=== PATIENT | male | born 1945 | race Caucasian/White ===

== ENCOUNTER → 2018-07-17 11:10 | Outpatient (CLI) | payer MEDICARE, SELFPAY ==
[2018-07-17 12:39] LABS: Alanine Aminotransferase 48 IU/L (21-72); Albumin 4.8 g/dL (3.5-5.0); Albumin Globulin Ratio 1.5 (1.0-2.8); Alkaline Phosphatase 44 U/L (38-126); Aspartate Aminotransferase 37 IU/L (17-59); BUN Creatinine Ratio 18.3 (6-22); Bilirubin Total 1.1 mg/dL (0.2-1.3); Blood Urea Nitrogen 22 mg/dL (9-20); Calcium 10.7 mg/dL (8.4-10.2); Carbon Dioxide 24 mmol/L (22-32); Chloride 107 mmol/L (98-107); Cholesterol 196 mg/dL (140-199); Estimated Glomerular Filt Rate 59.2 mL/min (>60); Globulin 3.1 g/dL (1.7-4.1); Glucose 119 mg/dL (80-110); HDL Cholesterol 49 mg/dL (40-60); HEMOLYSIS < 15 (0-50); LDL Cholesterol Calculated 118 mg/dL (<100); Sodium 143 mmol/L (137-145); Total Protein 7.9 g/dL (6.3-8.2); Triglycerides 146 mg/dL (35-150)
[2018-07-17 13:08] LABS: TSH w/ Reflex to FT4 2.43 uIU/mL (0.47-4.68)
== END ==
PROVIDERS: Visit Provider Student in an Organized Health Care Education/Training Program
DX: I10 Essential (primary) hypertension (principal); E78.5 Hyperlipidemia, unspecified; Z13.228 Encounter for screening for other metabolic disorders
CPT/HCPCS: 36415; 80053; 80061; 84443

== ENCOUNTER → 2018-08-08 09:52 | Outpatient (CLI) | payer MEDICARE, SELFPAY ==
[2018-08-09 15:35] LABS: Parathyroid Hormone Int 44 pg/mL (14-64)
[2018-08-11 21:00] LABS: Alkaline Phosphatase, Bone Spe 5.8 mcg/L
== END ==
PROVIDERS: Visit Provider Student in an Organized Health Care Education/Training Program
DX: E83.52 Hypercalcemia (principal)
CPT/HCPCS: 36415; 83970; 84075

== ENCOUNTER → 2019-06-29 12:43 | Outpatient (CLI) | payer MEDICARE, SELFPAY ==
--- NOTE | 2019-06-29 | DI.US.S_ITS ---
PROCEDURE: US ABDOMEN LIMITED INDICATIONS: RIGHT GROIN PAIN TECHNIQUE: Real-time focused scanning was performed of the abdomen, with image documentation. COMPARISON: None. FINDINGS: Scanning was performed over the area of current clinical concern, superior right groin region, identifying no abnormal mass, fluid collection or sonographic findings suggestive of herniation. IMPRESSION: No abnormality found. Depending on the clinical status followup by contrast enhanced CT or MRI may be warranted. Dictated by: Trevor Victor M.D. on 06/29/2019 at 14:44 Approved by: Trevor Victor M.D. on 06/29/2019 at 14:44
== END ==
PROVIDERS: PCP Student in an Organized Health Care Education/Training Program; Visit Provider Student in an Organized Health Care Education/Training Program
DX: R10.31 Right lower quadrant pain (principal)
CPT/HCPCS: 76705

== ENCOUNTER 2019-12-13 09:45 | Observation (INO) | payer MEDICARE, SELFPAY ==
[2019-12-13] VITALS (15 sets, daily range): BP systolic 106–143; BP diastolic 61–80; PULSE 65–124; RESP 14–30; TEMP 36.7–37.2; O2SAT 90–100; BMI 27.3
[2019-12-13] MEDS: EPINEPHrine 1 MG/ML 0.3 MG IM (09:55)
[2019-12-13] MEDS: diphenhydrAMINE 50 MG/ML VIAL 25 MG IV (09:55)
[2019-12-13] MEDS: methylPREDNISolone 125 MG/2 ML VIAL IV (09:55)
[2019-12-13] MEDS: FAMOTIDINE 20 MG/50 ML PIGGYBACK 200 MG IV (10:00)
--- NOTE | 2019-12-13 10:09 | ED.ALLEREA ---
HPI - Allergic Reaction General Chief complaint: Allergic Reaction Stated complaint: Tongue is swollen since this morning Time Seen by Provider: 12/13/19 09:57 Source: patient Mode of arrival: Ambulatory Limitations: no limitations History of Present Illness HPI narrative: Patient is a 74-year-old male with history of hypertension on lisinopril presenting with swollen tongue. He states that this morning he used icy Hot on his feet, but then noticed that his tongue was swelling. He is still able to talk and manage his own secretions. However it is not getting much better although he thinks he has had some improvement. MD complaint: facial swelling and other Symptoms: tongue swelling Severity: moderate Treatment prior to arrival: none Related Data Allergies Allergy/AdvReac Type Severity Reaction Status Date / Time No Known Drug Allergies Allergy Verified 12/13/19 09:58 Review of Systems Review of Systems Narrative: GENERAL: Denies chills, fatigue, malaise, fever, sweats, travel HEENT: See HPI RESPIRATORY: Denies dyspnea, cough, wheezing, hemoptysis, sputum. CARDIOVASCULAR: Denies chest pain, palpitations, orthopnea, edema GASTROINTESTINAL: Denies nausea, vomiting, abdominal pain, diarrhea, constipation, melena. : Denies dysuria, frequency, incontinence, hematuria, urinary retention, flank pain. MUSCULOSKELETAL: Denies weakness, joint pain, or bony pain SKIN: No rash, no erythema, no pruritus NEUROLOGIC: Denies weakness, dizziness, headache, numbness, change in speech, confusion PSYCHIATRIC: No concerning psychosocial issues. 12 point review of systems is negative except for those stated above and HPI Patient History Medical History Hypertension (Acute) Social History Smoking Status: Unknown if ever smoked Smoking Status: Unknown if ever smoked alcohol intake frequency: holidays/special occasions only Substance Use Type: does not use Exam Initial Vital Signs Initial Vital Signs: Vital Signs Temperature 98.9 F 12/13/19 09:50 Pulse Rate 89 12/13/19 09:50 Respiratory Rate 14 12/13/19 09:50 Blood Pressure 139/80 12/13/19 09:50 Pulse Oximetry 97 12/13/19 09:50 GENERAL: Alert elderly male able to speak in full sentences HEENT: Head atraumatic,EOMI, pupils reactive. Tongue is swollen more on the left than the right, managing own secretions no stridor. Slightly difficult to understand what he is saying CARDIOVASCULAR: Regular rate and rhythm without murmurs, rubs or gallops. RESPIRATORY: Breath sounds equal bilaterally, no wheezes rales or rhonchi. ABDOMEN: Soft, nontender. Normoactive bowel sounds all 4 quadrants. No guarding or rebound. EXTREMITIES: Normal range of motion, no clubbing or edema. Neurovascularly intact NEUROLOGICAL: Alert and oriented x4.Normal gait and speech. SKIN: Warm, dry, no laceration, no petechiae, no rashes or lesions. Course Orders Ordered: ED Orders 12/13/19 10:00 Basic Metabolic Panel Stat Complete Blood Count AUTO DIFF Stat Discontinued Medications Diphenhydramine HCl (Benadryl) 25 mg IV NOW ONE Stop: 12/13/19 10:14 Last Admin: 12/13/19 09:55 Dose: 25 mg Documented by: MANNIE Epinephrine HCl (Adrenalin) 0.3 mg IM NOW ONE Stop: 12/13/19 10:14 Last Admin: 12/13/19 09:55 Dose: 0.3 mg Documented by: MANNIE Famotidine (Pepcid) 20 mg in 50 mls @ 200 mls/hr IV NOW ONE Stop: 12/13/19 10:27 Last Infusion: 12/13/19 10:15 Dose: 0 mls/hr Documented by: Admin: 12/13/19 10:00 Dose: 200 mls/hr Documented by: MANNIE Methylprednisolone (Solu-Medrol 125 Mg Vial) 125 mg IV NOW ONE Stop: 12/13/19 10:14 Last Admin: 12/13/19 09:55 Dose: 125 mg Documented by: MANNIE Vital Signs Vital signs: Vital Signs - 8 hr 12/13/19 09:50 12/13/19 09:53 12/13/19 10:00 Temperature 98.9 F Pulse Rate 89 99 H 84 Respiratory Rate 14 20 Blood Pressure 139/80 143/73 H Pulse Oximetry 97 98 97 12/13/19 10:30 12/13/19 11:00 12/13/19 11:30 Temperature Pulse Rate 124 H 89 87 Respiratory Rate 20 17 18 Blood Pressure 140/71 115/63 116/65 Pulse Oximetry 100 94 91 07/02/20 12:00 Temperature Pulse Rate 81 Respiratory Rate 23 Blood Pressure 106/62 Pulse Oximetry 90 L MDM - Allergic Reaction Lab Data Result diagrams: 12/13/19 10:00 12/13/19 10:00 Labs: Lab Results 12/13/19 12/13/19 Range/Units 10:00 10:00 WBC 8.7 (4.5-11.0) X10^3/uL RBC 4.76 (4.5-5.9) X10^6/uL Hgb 14.4 (13.5-17.5) g/dL Hct 41.5 (41-53) % MCV 87.2 (80-100) fL MCH 30.2 (26-34) PG MCHC 34.6 (30-36) % RDW 13.7 (11.6-14.8) % Plt Count 268 (150-400) X10^3/uL Neut % (Auto) 70.6 (50-75) % Lymph % (Auto) 17.3 L (25-40) % [place] % (Auto) 7.8 (3-14) % Eos % (Auto) 3.5 (2-4) % Baso % (Auto) 0.8 (0-2) % Neut # (Auto) 6200 (6891-6220) /uL Lymph # (Auto) 1500 (7531-7182) /uL [place] # (Auto) 700 (0-900) /uL Eos # (Auto) 300 (0-450) /uL Baso # (Auto) 100 (0-100) /uL Sodium 140 (137-145) mmol/L Potassium 4.3 (3.4-5.1) mmol/L Chloride 106 (98-107) mmol/L Carbon Dioxide 24 (22-32) mmol/L BUN 17 (9-20) mg/dL Creatinine 1.04 (0.66-1.25) mg/dL Estimated GFR > 60.0 (>60) mL/min BUN/Creatinine Ratio 16.3 (6-22) Glucose 109 (80-110) mg/dL Calcium 10.4 H (8.4-10.2) mg/dL MDM Narrative Medical decision making narrative: Possible angioedema from lisinopril versus allergic reaction Patient started shaking quite profusely after the epinephrine however he did have some improvement in his tongue. 11:15 a.m. patient is re-evaluated this still appear swollen to me that he is talking better and says he is feeling better the shaking has stopped. Will monitor him a bit longer. The patient's tongue is still swollen I am able to understand him better but is still obviously swollen with out complete improvement and known lisinopril use is likely angioedema from lisinopril. Recommend observation overnight. Dr. Singleton updated on symptoms agrees with observation Discharge Plan Departure Patient Disposition: Admitted as Observation Clinical Impression: Angioedema Qualifiers: Encounter type: initial encounter Qualified Code(s): T78.3XXA - Angioneurotic edema, initial encounter Discharge Date/Time: 12/13/19 12:37 Referrals: Alyx De Leon PA-C [Primary Care Provider] - Admit Date/Time: 12/13/19 12:09 Admit Provider: Jakub Singleton
[2019-12-13 10:19] LABS: Add Manual Diff / Slide Review NO; Basophils Absolute Auto 100 /uL (0-100); Basophils Percent Auto 0.8 % (0-2); Eosinophils Absolute Auto 300 /uL (0-450); Eosinophils Percent Auto 3.5 % (2-4); Hematocrit 41.5 % (41-53); Hemoglobin 14.4 g/dL (13.5-17.5); Lymphocytes Absolute Auto 1500 /uL (1100-4500); Lymphocytes Percent Auto 17.3 % (25-40); Mean Corpuscular HGB Conc 34.6 % (30-36); Mean Corpuscular Hemoglobin 30.2 PG (26-34); Mean Corpuscular Volume 87.2 fL (80-100); Monocytes Absolute Auto 700 /uL (0-900); Monocytes Percent Auto 7.8 % (3-14); Neutrophils Absolute Auto 6200 /uL (1500-7000); Neutrophils Percent Auto 70.6 % (50-75); Platelet Count 268 X10^3/uL (150-400); Red Blood Cell Count 4.76 X10^6/uL (4.5-5.9); Red Cell Distribution Width 13.7 % (11.6-14.8); White Blood Cell Count 8.7 X10^3/uL (4.5-11.0)
[2019-12-13 10:24] LABS: BUN Creatinine Ratio 16.3 (6-22); Blood Urea Nitrogen 17 mg/dL (9-20); Calcium 10.4 mg/dL (8.4-10.2); Carbon Dioxide 24 mmol/L (22-32); Chloride 106 mmol/L (98-107); Estimated Glomerular Filt Rate > 60.0 mL/min (>60); Glucose 109 mg/dL (80-110); HEMOLYSIS 25 (0-50); Potassium 4.3 mmol/L (3.4-5.1); Sodium 140 mmol/L (137-145)
--- NOTE | 2019-12-13 10:58 | PC.NURSE ---
swelling of pts tongue decreasing and he is feeling better. Pt no longer shaking from epi being given and HR is now 90
--- NOTE | 2019-12-13 15:04 | PM.HP.1 ---
History of Present Illness History of Present Illness Date Patient Seen: 12/13/19 Time Patient Seen: 14:30 Chief complaint: Tongue is swollen since this morning Narrative: Patient is a 74-year-old male with history of hypertension, hyperlipidemia presented to the ER due to acute swelling of his tongue. He was home when noticed his tongue swollen with sensation of cotton mouth and had difficulty swallowing and talking. In the ED, he was noted to have severely edematous tongue. He was treated for possible allergic reaction and gradually the tongue swelling has improved. Patient is now able to swallow and talk without difficulty. He has been taking lisinopril for about 2 years for BP control. He also has been taking nifedipine and rosuvastatin for the past 18 months. Patient does state that about a week ago he had some left sided facial swelling which seemed odd to him but resolved on its own. He has not noticed a rash. He fortuitously did not take his lisinopril this morning due to difficulty swallowing. Patient states that for the past week he has had body aches, chills and night sweats along with diminished appetite but denies fever. He states that these symptoms have fully resolved over the past 24 hours. He has not been checked for COVID-19. Patient History Medical History Hypertension (Acute) Family & Social History Social History: household members spouse Prior Living Arrangements House Safety & Behavioral: Feels Safe in Current Yes Environment Been Physically Hurt or No Threatened By a Person Tobacco & Substance use: Smoking Status Unknown if ever smoked alcohol intake current alcohol intake frequency holiday/special occasion Substance Use Type does not use Meds Home Medications and Allergies Home Medications Medication Instructions Recorded Confirmed Type acetaminophen [Tylenol] 325 mg PO QID PRN 12/13/19 12/13/19 History lisinopril 10 mg PO DAILY 12/13/19 12/13/19 History nifedipine 60 mg PO DAILY 12/13/19 12/13/19 History omega 7-tkw-fsl-fish oil [Fish Oil] 1 cap PO DAILY 12/13/19 12/13/19 History rosuvastatin 20 mg PO QPM 12/13/19 12/13/19 History Allergies Allergy/AdvReac Type Severity Reaction Status Date / Time No Known Drug Allergies Allergy Verified 12/13/19 09:58 Review of Systems Review of Systems ROS: Yes All systems reviewed with the patient and are negative except as otherwise documented Exam Vital Signs (past 8 hours): - 12/13/19 09:50 12/13/19 09:53 12/13/19 10:00 Temperature 98.9 F Pulse Rate 89 99 H 84 Respiratory Rate 14 20 Blood Pressure 139/80 143/73 H Pulse Oximetry 97 98 97 12/13/19 10:30 12/13/19 11:00 12/13/19 11:30 Temperature Pulse Rate 124 H 89 87 Respiratory Rate 20 17 18 Blood Pressure 140/71 115/63 116/65 Pulse Oximetry 100 94 91 12/13/19 12:00 12/13/19 12:19 12/13/19 12:30 Temperature Pulse Rate 81 91 H 80 Respiratory Rate 23 30 H 18 Blood Pressure 106/62 123/71 114/64 Pulse Oximetry 90 L 95 91 Oxygen Delivery Method Room Air Narrative Exam Narrative: General: He is alert and cooperative male in no acute distress HEENT: Normocephalic atraumatic, pupils equal, no periorbital or facial swelling, tongue is midline and does not appear overtly swollen Neck: No swelling, no lymphadenopathy Lungs: Clear to auscultation Heart: Regular rhythm Abdomen: Soft and nontender Extremities: Warm, dry, nonedematous, no rash Neurological: Sensorium intact, nonfocal Objective Labs Result Diagrams: 12/13/19 10:00 12/13/19 10:00 Labs: Laboratory Results - last 24 hr 12/13/19 12/13/19 10:00 10:00 WBC 8.7 RBC 4.76 Hgb 14.4 Hct 41.5 MCV 87.2 MCH 30.2 MCHC 34.6 RDW 13.7 Plt Count 268 Neut % (Auto) 70.6 Lymph % (Auto) 17.3 L [place] % (Auto) 7.8 Eos % (Auto) 3.5 Baso % (Auto) 0.8 Neut # (Auto) 6200 Lymph # (Auto) 1500 [place] # (Auto) 700 Eos # (Auto) 300 Baso # (Auto) 100 Sodium 140 Potassium 4.3 Chloride 106 Carbon Dioxide 24 BUN 17 Creatinine 1.04 Estimated GFR > 60.0 BUN/Creatinine Ratio 16.3 Glucose 109 Calcium 10.4 H Assessment & Plan Assessment & Plan narrative: This is a 74-year-old male with history of hypertension, hyperlipidemia, on MARTY-inhibitor therapy who presents with acute tongue swelling compromising his airway. 1. Acute angioedema, likely MARTY-inhibitor related, present on admission, active -patient improving in ER and now asymptomatic on medical floor -discontinued lisinopril -monitor overnight for recurrent symptoms 2. Flu-like symptoms, resolved -1 week history of flu-like symptoms resolved in past 24 hours -afebrile, normal CBC -check COVID-19 PCR 3. Essential hypertension -BP 114/64 -continue nifedipine 60 mg daily -usually if necessary can substitute angiotensin receptor susana for patients with MARTY-inhibitor angioedema 4. Hyperlipidemia -continue rosuvastatin 20 mg q.p.m. Admit status: Observation Code status: Full code DVT prophylaxis: SCDs Surrogate decision maker: Spouse
[2019-12-13 17:05] LABS: COVID19 -Nasal RAPID Negative (Negative)
--- NOTE | 2019-12-13 18:41 | PC.NURSE ---
Admit Pt arrived from ER in , reports tongue swelling signifciantly improved. Admission and med rec completed. Dr Singleton into see Pt, OBS overnight. IV SL. Covid obtained, isolation initiated until negative results obtained. Denies pain. Bedside swallow passed, and diet ordered.
[2019-12-14] VITALS (7 sets, daily range): BP systolic 147–152; BP diastolic 76–82; PULSE 69–91; RESP 16–18; TEMP 36.3–36.8; O2SAT 94–97
[2019-12-14] MEDS: LOSARTAN 50 MG TABLET 100 MG PO (09:26)
--- NOTE | 2019-12-14 10:40 | PC.NURSE ---
Addendum entered by Selma Morgan R.N. 12/14/19 11:17: IV out and Pt Wheeled to private vehicle. Original Note: Assumed care of Pt @ 0700. Reports all swelling to tongue resolved, able to move freely. eager to d/c home this AM. Given PO Losartan @0930, monitor for a/e prior to d/c home with .
--- NOTE | 2019-12-14 10:43 | PM.DS.1 ---
History of Present Illness History of Present Illness Date Patient Seen: 12/14/19 Time Patient Seen: 10:44 Chief complaint: Tongue is swollen since this morning Narrative: Patient is a 74-year-old male with history of hypertension, hyperlipidemia presented to the ER due to acute swelling of his tongue. He was home when noticed his tongue swollen with sensation of cotton mouth and had difficulty swallowing and talking. In the ED, he was noted to have severely edematous tongue. He was treated for possible allergic reaction and gradually the tongue swelling has improved. Patient is now able to swallow and talk without difficulty. He has been taking lisinopril for about 2 years for BP control. He also has been taking nifedipine and rosuvastatin for the past 18 months. Patient does state that about a week ago he had some left sided facial swelling which seemed odd to him but resolved on its own. He has not noticed a rash. He fortuitously did not take his lisinopril this morning due to difficulty swallowing. Patient states that for the past week he has had body aches, chills and night sweats along with diminished appetite but denies fever. He states that these symptoms have fully resolved over the past 24 hours. He has not been checked for COVID-19. Discharge Providers Provider Date of admission: 12/13/19 12:09 Discharge Date: 12/14/19 Primary care physician: Alyx De Leon PA-C Discharge provider: Marley Rodgers MD Summary Hospital Course Discharge Diagnosis: 1. Acute angioedema, likely MARTY-inhibitor related 2. Flu-like symptoms 3. Essential hypertension 4. Hyperlipidemia Hospital Course: 1. Acute angioedema, likely MARTY-inhibitor related, present on admission, active -the lisinopril was stopped and appropriate steroids were given. A trial dose of losartan 100 mg was given this morning which was tolerated well and he will be discharged on that. 2. Flu-like symptoms, resolved -1 week history of flu-like symptoms resolved in past 24 hours -afebrile, normal CBC -negative COVID-19 PCR 3. Essential hypertension -BP 114/64 -continue nifedipine 60 mg daily -stop lisinopril 10 mg and add losartan 50 mg a day. 4. Hyperlipidemia -continue rosuvastatin 20 mg q.p.m. Exam Vital Signs (past 8 hours): - 12/14/19 05:19 12/14/19 06:00 12/14/19 08:23 Temperature 97.4 F L 98.3 F Pulse Rate 71 73 Respiratory Rate 16 18 Blood Pressure 147/76 H 152/82 H Pulse Oximetry 94 94 97 12/14/19 10:00 12/14/19 10:27 Temperature Pulse Rate 69 Respiratory Rate Blood Pressure 149/80 H Pulse Oximetry 96 Oxygen Delivery Method Room Air Oxygen Flow Rate 0 Narrative Exam Narrative: He is alert and oriented x3, in no apparent distress He is up and dressed, walking around the room, feeling fine without any residual oral swelling. Heart is regular rate and rhythm without murmur Lungs are clear to auscultation bilaterally Tongue looks completely normal. Extremities have no ankle edema. Objective Labs Result Diagrams: 12/13/19 10:00 12/13/19 10:00 Labs: Laboratory Results - last 24 hr 12/13/19 14:45 COVID-19 PCR Negative Discharge Plan Discharge Plan Patient Disposition: Home Discharge comment: Follow up with WILL De Leon in one week Discharge orders & Medications Prescriptions: New losartan 50 mg tablet 50 mg PO DAILY Qty: 30 RF: 0 Continued nifedipine 60 mg tablet extended release 24hr 60 mg PO DAILY RF: 0 rosuvastatin 20 mg tablet 20 mg PO QPM RF: 0 acetaminophen [Tylenol] 325 mg Capsule 325 mg PO QID PRN (Reason: Pain (Scale Score 1-3)) RF: 0 omega 7-wsu-pod-fish oil [Fish Oil] 1,000 mg (120 mg-180 mg) Capsule 1 cap PO DAILY RF: 0 Discontinued lisinopril 10 mg tablet 10 mg PO DAILY RF: 0 Follow up/Referrals: Alyx De Leon PA-C [Primary Care Provider] - Diet/Activity/Treatments Diet: Diet as Tolerated and Regular Discharge Data Primary Care Provider: Alyx De Leon Attending Provider: Jakub Singleton Admit Date/Time: 12/13/19 12:09
--- NOTE | 2019-12-14 15:24 | CM.DANOTE ---
Discharge Planning/Care Management DCP: assessment: case received and discussed in Team Rounds. Dr. Rodgers confirmed that pt was doing well and would be ok'd for d/c home today. Pt is a 74 year old male who admitted yesterday afternoon to care of hospitalist team. Payer: Eva GAYTAN. PCP: listed as Alyx De Leon Admission status: OBS Went to room shortly after rounds to check in on pt. He had already left for home with no concerns re the d/c noted by the care team members. CM Discharge Assessment Start: 12/14/19 15:23 Freq: Status: Active Protocol: Document 12/14/19 15:23 ITV (Rec: 12/14/19 15:23 ITV [id number]) Discharge Planning Assessment Advance Directives? No History Provided By Medical Record Prior Living Arrangements House Household Members spouse Review Status In Process
== END 2019-12-14 11:26 | disposition home or self-care (01) ==
LOC: ED 12:08 → AC 12:09
PROVIDERS: Admitting Provider Internal Medicine; Emergency Provider Emergency Medicine; PCP Student in an Organized Health Care Education/Training Program; Referring Provider Emergency Medicine; Visit Provider Internal Medicine
DX: T78.40XA Allergy, unspecified, initial encounter (principal); I10 Essential (primary) hypertension; T78.3XXA Angioneurotic edema, initial encounter; E78.5 Hyperlipidemia, unspecified; Z11.59 Encounter for screening for other viral diseases; R52 Pain, unspecified; R68.83 Chills (without fever); R61 Generalized hyperhidrosis
CPT/HCPCS: 36415; 80048; 85025; 87635; 96372; 96374; 96375; 99284; G0378; J0171; J1200; J2930

== ENCOUNTER → 2020-01-28 21:41 | Outpatient (ROUT) | payer MEDICARE, SELFPAY ==
[2019-12-13 12:49] VITALS: BMI 27.3
[2020-01-29 05:04] LABS: Prostate Specific Antigen Scrn 6.27 ng/mL (0.1-4.0)
== END ==
PROVIDERS: PCP Student in an Organized Health Care Education/Training Program; Visit Provider Student in an Organized Health Care Education/Training Program
DX: R35.0 Frequency of micturition (principal); Z12.5 Encounter for screening for malignant neoplasm of prostate
CPT/HCPCS: G0103

== ENCOUNTER → 2020-02-28 15:39 | Outpatient (ROUT) | payer MEDICARE, SELFPAY ==
[2019-12-13 12:49] VITALS: BMI 27.3
== END ==
PROVIDERS: PCP Student in an Organized Health Care Education/Training Program; Visit Provider Student in an Organized Health Care Education/Training Program
DX: R97.20 Elevated prostate specific antigen [PSA] (principal); R35.0 Frequency of micturition
CPT/HCPCS: 84153

== ENCOUNTER 2020-05-21 10:34 | Emergency (ER) | payer MEDICARE, SELFPAY ==
[2019-12-13 12:49] VITALS: BMI 27.3
[2020-05-21 10:48] VITALS: BP 164/83; PULSE 86; RESP 18; TEMP 36.7; O2SAT 96; BMI 28.0
--- NOTE | 2020-05-21 11:10 | ED.GENADULT ---
HPI - General Adult General Chief complaint: Eye Problems Stated complaint: left eye deminished vision today Time Seen by Provider: 05/21/20 11:03 Source: patient Mode of arrival: Ambulatory Limitations: no limitations History of Present Illness HPI narrative: 75-year-old male here for evaluation of vision loss to his left eye. Patient states that he woke up at 0430 this morning. Having to use the restroom. He walked into the bathroom and urinated and then he went back to lay in bed to go back to sleep again. He states that he put his and sleep mask back on and that is when he noticed that he could see light in his left eye. He checked multiple times to see if the sleep mask was down over his face and it was. He states that the symptoms continued until he came to the emergency department. He has a prior history of cataracts. These were removed many years ago. He denied any other associated symptoms except for the flashes of light in his left eye. Related Data Home Medications Medication Instructions Recorded Confirmed acetaminophen [Tylenol] 325 mg PO QID PRN 12/13/19 12/13/19 nifedipine 60 mg PO DAILY 12/13/19 12/13/19 omega 9-oah-ezz-fish oil [Fish Oil] 1 cap PO DAILY 12/13/19 12/13/19 rosuvastatin 20 mg PO QPM 12/13/19 12/13/19 Previous Rx's Medication Instructions Recorded losartan 50 mg PO DAILY #30 tab 12/14/19 Allergies Allergy/AdvReac Type Severity Reaction Status Date / Time lisinopril Allergy Anaphylaxis Verified 05/21/20 10:52 Review of Systems Constitutional Constitutional: Denies chills, Denies difficulty sleeping, Denies fatigue, Denies fever(s) and Denies headache(s) Eyes Eyes: Reports change in vision, Denies diplopia, Denies eye discharge, Denies irritation, Denies itchy eyes, Reports loss of vision, Denies eye pain and Denies photophobia Comments: Light flashes and left eye, no right eye symptoms ENT Ears, Nose, Mouth, and Throat: Denies vertigo, Denies dizziness, Denies otalgia, Denies headache(s), Denies sinus pressure and Denies sore throat Cardiovascular Cardiovascular: Denies chest pain and Denies dyspnea Respiratory Respiratory: Denies dyspnea Gastrointestinal Gastrointestinal: Denies abdominal pain, Denies nausea and Denies vomiting Genitourinary Genitourinary: Denies dysuria Genitourinary: Denies dysuria Musculoskeletal Musculoskeletal: Denies arthralgias and Denies myalgias Integumentary/Breasts Skin/Breast: Denies lesions and Denies rash Neurologic Neurologic: Denies abnormal speech, Denies behavioral changes, Denies confusion, Denies vertigo, Denies dizziness, Denies headache(s) and Reports loss of vision Psychiatric Psychiatric: Denies behavioral changes and Denies confusion Endocrine Endocrine: Denies fatigue Hematologic/Lymphatic Hematologic/Lymphatic: Denies easy bleeding and Denies easy bruising Allergic/Immunologic Allergic/Immunologic: Denies itchy eyes Patient History Medical History Angioedema Cataracts, bilateral Hypertension Social History household members: spouse Smoking Status: Unknown if ever smoked alcohol intake: current Smoking Status: Unknown if ever smoked alcohol intake frequency: holidays/special occasions only Substance Use Type: does not use Exam Initial Vital Signs Initial Vital Signs: Vital Signs Temperature 98.1 F 05/21/20 10:48 Pulse Rate 86 05/21/20 10:48 Respiratory Rate 18 05/21/20 10:48 Blood Pressure 164/83 H 05/21/20 10:48 Pulse Oximetry 96 05/21/20 10:48 Const General: cooperative, healthy appearing, comfortable, well developed and well groomed Limitations: mental status not altered [facility] Head: normal to inspection and normocephalic Ears: hearing grossly normal bilaterally Nose: external nose normal Face and sinus: normal facial exam Mouth: oral mucosae normal Eyes Periorbital: periorbital findings normal Eyelids: eyelids normal Conjunctivae: conjunctivae normal Sclera: sclerae normal Direct ophthalmoscopy: photophobia present and decreased pupillary light reflex on the left Other: Right eye is unremarkable. Pupil is round and reactive. External view of his left eye is unremarkable. His pupil is dilated to 8 mm and nonreactive. With shining light in front of his eyes he states that he sees a white or blue light. He only sees motion when the object being moved is in front of a light source. Resp Effort & Inspection: normal respiratory effort Auscultation: clear to auscultation bilaterally Cardio Rate: regular rate Rhythm: regular rhythm Skin Lesions: no lesions Rashes: no rashes Neuro General: patient alert, patient awake and patient oriented x3 Cognition: normal cognition Speech: speech normal Gait: normal gait Motor: muscle tone normal throughout Sensory Exam: no sensory deficits noted Other: Other than the findings noted in the eye section his cranial nerves are Extrem General: capillary refill normal Psych Appearance: grossly normal and well kempt Scores GCS Kamini coma scale eye opening: Spontaneous [place] coma scale verbal response: Orientated [place] coma scale motor response: Obey commands [place] coma scale total score: 15 Course Orders Ordered: ED Orders 05/21/20 11:22 CT head/brain wo con Stat 05/21/20 12:15 C-Reactive Protein Quant Stat Complete Blood Count AUTO DIFF Stat Comprehensive Metabolic Panel Stat Erythrocyte Sedimentation Rate Stat Partial Thromboplastin Time Stat Prothrombin Time INR Stat Vital Signs Vital signs: Vital Signs - 8 hr 05/21/20 11:54 05/21/20 11:55 05/21/20 12:00 Pulse Rate 81 79 77 Blood Pressure 133/76 128/72 Pulse Oximetry 97 97 96 05/21/20 12:30 Pulse Rate 76 Blood Pressure 136/76 Pulse Oximetry 97 Medical Decision Making Lab Data Lab results reviewed: Yes I reviewed the patient's lab results. Result diagrams: 05/21/20 12:15 05/21/20 12:15 Labs: Lab Results 05/21/20 05/21/20 05/21/20 Range/Units 12:15 12:15 12:15 WBC 5.4 (4.5-11.0) X10^3/uL RBC 4.38 L (4.5-5.9) X10^6/uL Hgb 12.9 L (13.5-17.5) g/dL Hct 38.7 L (41-53) % MCV 88.2 (80-100) fL MCH 29.4 (26-34) PG MCHC 33.3 (30-36) % RDW 14.2 (11.6-14.8) % Plt Count 155 (150-400) X10^3/uL Neut % (Auto) 62.3 (50-75) % Lymph % (Auto) 22.5 L (25-40) % [place] % (Auto) 7.8 (3-14) % Eos % (Auto) 5.8 H (2-4) % Baso % (Auto) 1.6 (0-2) % Neut # (Auto) 3400 (2912-8283) /uL Lymph # (Auto) 1200 (3002-5534) /uL [place] # (Auto) 400 (0-900) /uL Eos # (Auto) 300 (0-450) /uL Baso # (Auto) 100 (0-100) /uL ESR 14 (0-15) MM/HR PT 11.4 (10.1-12.7) SECONDS INR 1.0 (0.9-1.3) APTT 32 (26.4-36.2) SECONDS Sodium 139 (137-145) mmol/L Potassium 4.2 (3.4-5.1) mmol/L Chloride 110 H (98-107) mmol/L Carbon Dioxide 24 (22-32) mmol/L BUN 25 H (9-20) mg/dL Creatinine 0.96 (0.66-1.25) mg/dL Estimated GFR > 60.0 (>60) mL/min BUN/Creatinine Ratio 26.0 H (6-22) Glucose 107 (80-110) mg/dL Calcium 9.4 (8.4-10.2) mg/dL Total Bilirubin 0.9 (0.2-1.3) mg/dL AST 31 (17-59) IU/L ALT 34 (<50) IU/L Alkaline Phosphatase 42 (38-126) U/L C-Reactive Protein < 0.5 (<1.0) mg/dL Total Protein 6.8 (6.3-8.2) g/dL Albumin 3.9 (3.5-5.0) g/dL Globulin 2.9 (1.7-4.1) g/dL Albumin/Globulin Ratio 1.3 (1.0-2.8) Imaging Data CT scan - head: Radiologist's Impression: [address] [id number] Scan ReportSigned Patient: Ibrahima Bang [facility]#: [id number]: 4Acct:[id number]/Sex: 75 / MDate of Service: 05/21/20Loc: EDAccession Number: [id number] Procedure: CT head/brain wo con Ordering Provider: Edd Rosenthal D.O. PROCEDURE: CT HEAD/BRAIN WO CON INDICATIONS: loss of vision to left eye TECHNIQUE: Noncontrast 4.5 mm thick angled axial sections acquired from the foramen magnum to the vertex, with coronal and sagittal reformats. For radiation dose reduction, the following was used: automated exposure control, adjustment of mA and/or kV according to patient size. COMPARISON: None. FINDINGS: Image quality: Excellent. CSF spaces: Basal cisterns are patent. No extra-axial fluid collections. The ventricles are symmetric in size and shape. Brain: No intracranial bleeds or masses. There is cerebral volume loss for age, with resultant ventricular and sulcal prominence. There are periventricular and deep white matter chronic small vessel ischemic changes. There is intracranial internal carotid artery and vertebral artery atherosclerosis. Skull and face: Calvarium and visualized facial bones appear intact, without suspicious lesions. Sinuses: Mucosal thickening causes complete opacification the visualized left maxillary sinus. The mastoids are clear. IMPRESSION: No acute intracranial disease process. Dictated by: Jeimy Do MD, PhD on 05/21/2020 at 11:43 Approved by: Jeimy Do MD, PhD on 05/21/2020 at 11:45 [facility] Narrative Medical decision making narrative: Patient has obvious decrease vision in his left eye to the point where he can only see light. He also has a fixed pupil on the left side. I did discuss the case with Dr. Dolan at Ophthalmology who recommended the labs that were drawn here in the emergency department. His head CT was ordered based on my evaluation of other potential issues to include mass versus hemorrhage. Patient was discharged from the emergency department follow-up with Ophthalmology. Discharge Plan Departure Patient Disposition: Home Clinical Impression: Loss of vision Instructions: DI for Visual Field Disturbances Activity Restrictions/Additional Instructions: Recommend that you go directly from the emergency department over to the ophthalmology clinic here at the hospital. I did discuss your case with Dr. Dolan in they will see you in the clinic this afternoon. Prescriptions: No Action nifedipine 60 mg tablet extended release 24hr 60 mg PO DAILY RF: 0 rosuvastatin 20 mg tablet 20 mg PO QPM RF: 0 acetaminophen [Tylenol] 325 mg Capsule 325 mg PO QID PRN (Reason: Pain (Scale Score 1-3)) RF: 0 omega 5-ebb-mzc-fish oil [Fish Oil] 1,000 mg (120 mg-180 mg) Capsule 1 cap PO DAILY RF: 0 losartan 50 mg tablet 50 mg PO DAILY Qty: 30 RF: 0 Referrals: Alyx De Leon PA-C [Primary Care Provider] -
--- NOTE | 2020-05-21 11:19 | PC.NURSE ---
pupil on the left 8mm. non reactive. right 3 mm reactive.
--- NOTE | 2020-05-21 11:22 | DI.CT.S_ITS ---
PROCEDURE: CT HEAD/BRAIN WO CON INDICATIONS: loss of vision to left eye TECHNIQUE: Noncontrast 4.5 mm thick angled axial sections acquired from the foramen magnum to the vertex, with coronal and sagittal reformats. For radiation dose reduction, the following was used: automated exposure control, adjustment of mA and/or kV according to patient size. COMPARISON: None. FINDINGS: Image quality: Excellent. CSF spaces: Basal cisterns are patent. No extra-axial fluid collections. The ventricles are symmetric in size and shape. Brain: No intracranial bleeds or masses. There is cerebral volume loss for age, with resultant ventricular and sulcal prominence. There are periventricular and deep white matter chronic small vessel ischemic changes. There is intracranial internal carotid artery and vertebral artery atherosclerosis. Skull and face: Calvarium and visualized facial bones appear intact, without suspicious lesions. Sinuses: Mucosal thickening causes complete opacification the visualized left maxillary sinus. The mastoids are clear. IMPRESSION: No acute intracranial disease process. Dictated by: Jeimy Do MD, PhD on 05/21/2020 at 11:43 Approved by: Jeimy Do MD, PhD on 05/21/2020 at 11:45
[2020-05-21 11:54] VITALS: PULSE 81; O2SAT 97
[2020-05-21 11:55] VITALS: BP 133/76; PULSE 79; O2SAT 97
[2020-05-21 12:00] VITALS: BP 128/72; PULSE 77; O2SAT 96
[2020-05-21 12:24] LABS: Add Manual Diff / Slide Review NO; Basophils Absolute Auto 100 /uL (0-100); Basophils Percent Auto 1.6 % (0-2); Eosinophils Absolute Auto 300 /uL (0-450); Eosinophils Percent Auto 5.8 % (2-4); Hematocrit 38.7 % (41-53); Hemoglobin 12.9 g/dL (13.5-17.5); Lymphocytes Absolute Auto 1200 /uL (1100-4500); Lymphocytes Percent Auto 22.5 % (25-40); Mean Corpuscular HGB Conc 33.3 % (30-36); Mean Corpuscular Hemoglobin 29.4 PG (26-34); Mean Corpuscular Volume 88.2 fL (80-100); Monocytes Absolute Auto 400 /uL (0-900); Monocytes Percent Auto 7.8 % (3-14); Neutrophils Absolute Auto 3400 /uL (1500-7000); Neutrophils Percent Auto 62.3 % (50-75); Platelet Count 155 X10^3/uL (150-400); Red Blood Cell Count 4.38 X10^6/uL (4.5-5.9); Red Cell Distribution Width 14.2 % (11.6-14.8); White Blood Cell Count 5.4 X10^3/uL (4.5-11.0)
[2020-05-21 12:30] VITALS: BP 136/76; PULSE 76; O2SAT 97
[2020-05-21 12:30] LABS: Prothrombin Time 11.4 SECONDS (10.1-12.7)
[2020-05-21 12:33] LABS: PTT Partial Thromboplastin Tim 32 SECONDS (26.4-36.2)
[2020-05-21 12:40] LABS: Alanine Aminotransferase 34 IU/L (<50); Albumin 3.9 g/dL (3.5-5.0); Albumin Globulin Ratio 1.3 (1.0-2.8); Alkaline Phosphatase 42 U/L (38-126); Aspartate Aminotransferase 31 IU/L (17-59); Bilirubin Total 0.9 mg/dL (0.2-1.3); Blood Urea Nitrogen 25 mg/dL (9-20); Calcium 9.4 mg/dL (8.4-10.2); Carbon Dioxide 24 mmol/L (22-32); Chloride 110 mmol/L (98-107); Estimated Glomerular Filt Rate > 60.0 mL/min (>60); Globulin 2.9 g/dL (1.7-4.1); Glucose 107 mg/dL (80-110); HEMOLYSIS < 15 (0-50); Potassium 4.2 mmol/L (3.4-5.1); Sodium 139 mmol/L (137-145); Total Protein 6.8 g/dL (6.3-8.2)
[2020-05-21 12:41] LABS: C-Reactive Protein Quant < 0.5 mg/dL (<1.0)
[2020-05-21 12:44] LABS: Erythrocyte Sedimentation Rate 14 MM/HR (0-15)
== END 2020-05-21 13:18 | disposition home or self-care (01) ==
PROVIDERS: Emergency Provider Emergency Medicine; PCP Student in an Organized Health Care Education/Training Program
DX: H54.7 Unspecified visual loss (principal); I10 Essential (primary) hypertension
CPT/HCPCS: 36415; 70450; 80053; 85025; 85610; 85651; 85730; 86140

== ENCOUNTER 2020-05-21 15:26 | Observation (INO) | payer MEDICARE, SELFPAY ==
[2019-12-13 12:49] VITALS: BMI 27.3
[2020-05-21] VITALS (9 sets, daily range): BP systolic 131–147; BP diastolic 71–96; PULSE 72–89; RESP 16–23; TEMP 36.6; O2SAT 95–99; BMI 28.3
--- NOTE | 2020-05-21 | DI.MRI.S_ITS ---
PROCEDURE: MR STROKE Pre- and post-contrast brain MRI, non-contrast brain MR angiogram, pre- and postcontrast neck MR angiogram INDICATIONS: Central retinal artery occlusion TECHNIQUE: Brain: Noncontrast axial T1 spin echo, axial T2 fast spin echo, sagittal and axial FLAIR, coronal T2 fast spin echo, axial gradient echo, axial diffusion and ADC through the brain. After the administration of contrast, axial 3D VIBE of the cranial vasculature and brain. Brain MRA: Non-contrast 3-D time of flight MR angiogram, with multiple kaupnjv-tvseaeqsc-jwlakmsypa (MIP) reformats performed. Neck MRA: Axial and sagittal TruFISP through the neck. Coronal dynamic MR angiogram during administration of contrast in the arterial and venous phases, with 3-dimenstional cwxkwmb-ihxekmsma-stafqgaycz (MIP) reformats constructed from subtraction images. COMPARISON: [facility], CT, CT HEAD/BRAIN WO CON, 05/21/2020, 11:29. FINDINGS: Image quality: Excellent. BRAIN: CSF spaces: Ventricles are normal in size and shape. Basal cisterns are patent. No extra-axial fluid collections. Brain: No intracranial bleeds or mass effects. 5 millimeter focus of mixed signal noted in the posterior right frontal lobe which demonstrates susceptibility artifact compatible with cavernous angioma. There is mild, diffuse cerebral volume loss. There are fqmu-pm-jtuahojs periventricular and subcortical white matter chronic microvascular ischemic changes. Confluent area of increased T2 signal noted in the right frontal periventricular white matter may represent chronic microvascular ischemic change, however other etiologies including demyelinating process or early BF manifestation of neoplastic process cannot be excluded without follow-up imaging. [place]-white matter interface is normal. Diffusion weighted images show no acute ischemic insults. Brainstem appears normal. Normal intravascular flow voids are present. Dural sinuses demonstrate normal postcontrast enhancement. No abnormal intracranial enhancement. Skull and face: Calvarial marrow signal is normal. Orbits appear normal. Sinuses: Moderate-sized mucous retention cyst versus polyp noted in the right maxillary sinus. Left maxillary sinus is completely opacified by severe mucosal thickening. mastoids are clear. BRAIN MR ANGIOGRAM: Anterior circulation: Intracranial internal carotid arteries are normal in size and enhancement. The flow within the paired anterior cerebral arteries is normal and symmetric. The flow within the middle cerebral arteries is normal and symmetric. The anterior communicating artery is seen. No stenoses, occlusions, or aneurysms. Posterior circulation: The visualized portions of the vertebral arteries demonstrate normal caliber, and join to form a normal appearing basilar artery. The flow within the posterior cerebral arteries is normal and symmetric. No stenoses, occlusions, or aneurysms. NECK MR ANGIOGRAM: Carotids: Great vessels demonstrate bovine variant anatomy as they arise from the aortic arch. The origins of the common carotid arteries appear patent. The calibers and courses of both common carotid arteries are normal. Atherosclerotic calcification noted in the origin of the right internal carotid artery which causes mild, less than 50% stenosis of the vessel. Atherosclerotic irregularity noted in the origin of the left internal carotid artery which causes moderate, approximately 60-69% stenosis of the vessel. Posterior circulation: Left vertebral artery arises from the aortic arch immediately proximal to the origin of the left subclavian artery. Origin the right vertebral artery is fully patent. Atherosclerotic irregularity noted in the origin of the left vertebral artery which causes moderate stenosis. Scattered atherosclerotic irregularity noted in the proximal left vertebral artery is causes multifocal moderate stenosis. Scattered atherosclerotic irregularity noted in the intracranial, V4 segment of the left vertebral artery which causes multifocal moderate and high-grade stenosis. More superior portions of both vertebral arteries demonstrate normal course and caliber, and join to form a normal appearing basilar artery. Miscellaneous: Subclavian arteries appear patent. Pre-contrast images through the neck show no soft tissue abnormalities. IMPRESSION: BRAIN MRI: 1. No acute intracranial disease process. 2. No areas of acute infarction. 3. Confluency area of increased T2 signal in the right frontal periventricular/subcortical white matter may represent chronic microvascular ischemic change, however other etiologies including demyelinating process or and a less likely infiltrating low-grade neoplasm cannot be excluded without follow-up imaging. Recommend repeat MRI and 1 month. 4. Mild, diffuse cerebral volume loss. 5. Mild my periventricular and subcortical white matter chronic microvascular ischemic change. 6. 5 millimeter right frontal cavernous angioma. 7. Severe left maxillary sinusitis. BRAIN MR ANGIOGRAM: Negative examination. NECK MR ANGIOGRAM: 1. Less than 50% stenosis of the origin of the left internal carotid artery. 2. Moderate, 60-69% stenosis of the origin of the left internal carotid artery. 3. Short segment, moderate stenosis involving the V4 segment of the right vertebral artery. Patient is right vertebral artery dominant. 4. Multifocal moderate and high-grade stenoses involving the left vertebral artery. Dictated by: Jeimy Do MD, PhD on 05/21/2020 at 19:23 Approved by: Jeimy Do MD, PhD on 05/21/2020 at 19:35
--- NOTE | 2020-05-21 15:43 | ED.GENADULT ---
HPI - General Adult General Chief complaint: Eye Problems Stated complaint: sent by doctor for concerns of stroke Time Seen by Provider: 05/21/20 15:27 Source: patient and family Mode of arrival: Ambulatory Limitations: no limitations History of Present Illness HPI narrative: Patient is a 75-year-old male who I evaluated in the emergency department earlier today with vision loss in his left eye. He was discharged from the emergency department is into the ophthalmology clinic where he was evaluated by Dr. Dolan. Patient was sent back over to the emergency department after this visit. Dr. Dolan stated that the patient had a left-sided central retinal artery occlusion. Dr. Dolan informed the patient the findings and also the prognosis in the concerned that he potentially has permanent loss of vision in his left eye. Patient was sent back to the emergency department for admission and continued workup of was most likely a thrombus causing his problems. Patient denies no change in his symptoms since being discharged from the emergency department or from the ophthalmology clinic. Related Data Home Medications Medication Instructions Recorded Confirmed acetaminophen [Tylenol] 325 mg PO QID PRN 12/13/19 12/13/19 nifedipine 60 mg PO DAILY 12/13/19 12/13/19 omega 7-kee-oic-fish oil [Fish Oil] 1 cap PO DAILY 12/13/19 12/13/19 rosuvastatin 20 mg PO QPM 12/13/19 12/13/19 Previous Rx's Medication Instructions Recorded losartan 50 mg PO DAILY #30 tab 12/14/19 Allergies Allergy/AdvReac Type Severity Reaction Status Date / Time lisinopril Allergy Anaphylaxis Verified 05/21/20 10:52 Review of Systems Constitutional Constitutional: Denies fever(s) and Denies headache(s) Eyes Comments: Vision loss left eye ENT Ears, Nose, Mouth, and Throat: Denies vertigo, Denies dizziness, Denies headache(s), Denies disequilibrium and Denies sore throat Cardiovascular Cardiovascular: Denies chest pain and Denies dyspnea Respiratory Respiratory: Denies dyspnea Gastrointestinal Gastrointestinal: Denies abdominal pain Musculoskeletal Musculoskeletal: Denies arthralgias and Denies myalgias Integumentary/Breasts Skin/Breast: Denies rash Neurologic Neurologic: Denies abnormal movements, Denies abnormal speech, Denies confusion, Denies vertigo, Denies dizziness, Denies headache(s) and Denies disequilibrium Psychiatric Psychiatric: Denies confusion Hematologic/Lymphatic Hematologic/Lymphatic: Denies easy bleeding and Denies easy bruising Allergic/Immunologic Allergic/Immunologic: Denies urticaria Patient History Medical History Angioedema Cataracts, bilateral Hypertension Social History household members: spouse Smoking Status: Unknown if ever smoked alcohol intake: current Smoking Status: Unknown if ever smoked alcohol intake frequency: holidays/special occasions only Substance Use Type: does not use Exam Initial Vital Signs Initial Vital Signs: Vital Signs Temperature 97.9 F 05/21/20 15:34 Const General: cooperative, comfortable, well developed and well groomed Limitations: mental status not altered HENMT Head: normal to inspection and normocephalic Eyes Other: Bilateral eyes dilated secondary to his visit to the ophthalmology clinic. Patient is still only able to see light in the left eye. Resp Effort & Inspection: normal respiratory effort Auscultation: clear to auscultation bilaterally Cardio Rate: regular rate Rhythm: regular rhythm Skin Lesions: no lesions Rashes: no rashes Neuro General: patient alert, patient awake and patient oriented x3 Cognition: normal cognition Speech: speech normal Gait: normal gait Motor: muscle tone normal throughout Sensory Exam: no sensory deficits noted Extrem General: normal to inspection and capillary refill normal Psych Appearance: grossly normal and well kempt Scores GCS Kamini coma scale eye opening: Spontaneous [place] coma scale verbal response: Orientated [place] coma scale motor response: Obey commands [place] coma scale total score: 15 Course Orders Ordered: ED Orders 05/21/20 15:42 EKG-12 Lead Stat 05/21/20 15:45 Partial Thromboplastin Time Stat Prothrombin Time INR Stat 05/21/20 15:50 EC echo doppler complete Stat 05/21/20 16:00 COVID19 Stat Discontinued Medications Aspirin (Aspirin 81 Mg Chew Tab) 324 mg PO NOW ONE Stop: 05/21/20 15:42 Last Admin: 05/21/20 15:54 Dose: 324 mg Documented by: DAVID Vital Signs Vital signs: Vital Signs - 8 hr 05/21/20 15:34 05/21/20 15:36 05/21/20 15:37 Temperature 97.9 F Pulse Rate 89 86 Respiratory Rate 21 Blood Pressure 147/86 H Pulse Oximetry 99 98 Medical Decision Making Lab Data Lab results reviewed: Yes I reviewed the patient's lab results. 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 Has been seen by Ophthalmology. There unfortunately is not a good prognosis for vision to return in that left eye. He is not in AFib on his EKG. He has no other neurologic symptoms. Ophthalmology recommended admission for further evaluation to include MRI, echocardiogram and carotid Dopplers. Patient not on anticoagulation. Did discuss the case with Dr. Bains with Internal Medicine who will admit for further evaluation and treatment. I did discuss the admission with the patient. He expressed understanding and agreement. Discharge Plan Departure Patient Disposition: Admitted as Observation Clinical Impression: Central retinal artery occlusion of left eye Admit Date/Time: 05/21/20 16:03 Admit Provider: Geronimo Bains
[2020-05-21] MEDS: ASPIRIN 81 MG CHEW TAB 324 MG PO (15:54)
[2020-05-21 15:57] LABS: Prothrombin Time 11.6 SECONDS (10.1-12.7)
[2020-05-21 16:00] LABS: PTT Partial Thromboplastin Tim 34 SECONDS (26.4-36.2)
--- NOTE | 2020-05-21 16:30 | PC.NURSE ---
pt was in the Er earlier today, sent to Dr. Dolan. pt returned back and has a retinal artery occlusion. pt will be admitted and will have MRi.
[2020-05-21 16:33] LABS: COVID19 -Nasal RAPID Negative (Negative)
[2020-05-21 20:49] LABS: TSH w/ Reflex to FT4 1.97 uIU/mL (0.47-4.68)
--- NOTE | 2020-05-21 20:53 | PM.HP.1 ---
History of Present Illness History of Present Illness Date Patient Seen: 05/21/20 Time Patient Seen: 20:53 Chief complaint: sent by doctor for concerns of stroke Narrative: Ibrahima Bang is a 75 y.o. male with hypertension, hyperlipidemia and a history of bilateral cataract removal with IOL implants was in his usual state of health woke up this morning and normally is able to keep light out of his field of vision with the use of a sleep mask, was seeing light come through his sleep mask covering his left eye. He complained of seeing flashes and still does. His was not feeling well, let her sleep in, and presented to the ED around 10 am. In the ED, his left pupil was found to be fixed and dilated and was diagnosed with left eye vision loss. Head CT was negative for a brain bleed or lesion. He was discharged with a referral to Dr. Dolan, administrator health care facility who saw him today and was diagnosed with a left sided retinal artery occlusion. He was referred back to the ED for further evaluation of for a CVA and underwent a head MRI and found to have high grade stenosis of the left ICA, multifocal moderate and high grade stenosis of the left vertebral artery and an incidental abnormal finding of the right frontal periventricular/subcortical white matter concerning for microvascular ischemic changes, a demyleinating process or an infiltrating low grade neoplasm. He is being placed into observation for further evaluation for a TIA vs CVA. He denies headaches, continues to have white flashes causing him some distress and requesting an eye patch, denies nasal congestion, swallowing difficulties, shortness of breath, chest pain, n/v, has chronic urinary retentioned worsened by beer and relieved for months after taking a one time dose of Aleve, diarrhea or constipation. He does endorse having right handed numbing and tingling and has been going to physical therapy for this and attributes this to problems with his neck. 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 He does endorse having bilateral lower extremity swelling for which she wears compression stockings which have significantly improved though symptoms. He states he was told a long time ago that he had an irregular heart beat, skipped beats. He presents with a temperature 147/96, blood pressure 147/96, heart rate 79, respiratory rate of 17, oxygen saturation 99% on room air, weighs 82 kg with a BMI of 28.3. CBC and BMP were done earlier today and were not impressive. His hemoglobin A1c is 6.0 and TSH is 1.97. Lipid panels pending. COVID 19 is negative. Patient History Medical History (Updated 05/21/20 @ 21:18 by CHRISTO Palmer) Angioedema Cataracts, bilateral Essential hypertension H/O urinary retention HLD (hyperlipidemia) Surgical History (Updated 05/21/20 @ 21:18 by CHRISTO Palmer) Hx of knee surgery Family & Social History Family History (Updated 05/21/20 @ 21:19 by CHRISTO Palmer) Mother CVA (cerebral vascular accident) Tobacco consumption Father CVA (cerebral vascular accident) Hydrocephalus Other Hypertension Social History: household members spouse Safety & Behavioral: Feels Safe in Current Yes Environment Been Physically Hurt or No Threatened By a Person Suicidal Ideation Description None Suicide Plan Description No Plan Tobacco & Substance use: Smoking Status Never smoker alcohol intake current alcohol intake frequency 0-2 drinks per day Substance Use Type does not use Meds Home Medications and Allergies Home Medications Medication Instructions Recorded Confirmed Type nifedipine 60 mg PO DAILY 12/13/19 05/21/20 History omega 3-zjq-eyi-fish oil [Fish Oil] 1 cap PO DAILY 12/13/19 05/21/20 History rosuvastatin 20 mg PO QPM 12/13/19 05/21/20 History losartan 50 mg PO DAILY #30 tab 12/14/19 05/21/20 Rx Allergies Allergy/AdvReac Type Severity Reaction Status Date / Time lisinopril Allergy Anaphylaxis Verified 05/21/20 10:52 Review of Systems Review of Systems ROS: Yes All systems reviewed with the patient and are negative except as otherwise documented Exam Vital Signs (past 8 hours): - 05/21/20 15:34 05/21/20 15:36 05/21/20 15:37 Temperature 97.9 F Pulse Rate 89 86 Respiratory Rate 21 Blood Pressure 147/86 H Pulse Oximetry 99 98 05/21/20 16:00 05/21/20 16:30 05/21/20 17:00 Temperature Pulse Rate 79 74 79 Respiratory Rate 23 16 16 Blood Pressure 139/81 131/78 134/71 Pulse Oximetry 97 95 97 05/21/20 17:30 05/21/20 19:55 Temperature 97.9 F Pulse Rate 72 79 Respiratory Rate 18 17 Blood Pressure 137/78 147/96 H Pulse Oximetry 95 99 Oxygen Delivery Method Room Air Oxygen Flow Rate 0 Narrative Exam Narrative: Gen: Alert, oriented, well-developed 75 y.o. male, very pleasant HEENT: normocephalic, atraumatic, left eye pupil is fixed and non-reactive, conjunctiva clear, sclera non-icteric, oral mucosa pink and moist Neck: supple, full ROM, no JVD, trachea is midline Resp: Lungs CTA, non-labored breathing CV: RRR, no murmur or rubs Abd: soft, non-tender, normoactive BTs Skin: no lesions or rashes, dry and intact Neuro: Alert and oriented X 4 w/no focal deficits. Speech clear and coherent. Extremities: moves all 4 extremities, is ambulatory, negative Reema?s sign Psyche: normal mood and affect. Objective Labs Labs: Laboratory Results - last 24 hr 05/21/20 05/21/20 05/21/20 15:45 16:00 20:05 PT 11.6 INR 1.0 APTT 34 D Hemoglobin A1c 6.0 TSH COVID-19 PCR Negative 05/21/20 20:05 PT INR APTT Hemoglobin A1c TSH 1.97 COVID-19 PCR Assessment & Plan Assessment & Plan narrative: Ibrahima Bang will be placed into observation for further evaluation of a TIA and central retinal artery occlusion. Central retinal artery occlusion, acute and present on admission -Patient was informed was likely a permanent visual loss -He will need regular follow-up monitoring by ophthamology Suspected TIA versus stroke, acute, present on admission -Cardiac telemetry -NIH scoring and neuro checks q 4 hours -initiate clopidogrel 75 mg p.o. daily and aspirin 81 mg p.o. daily -MR stroke indicated high grade left sided ICA and vertebral artery stenosis and recommended followup repeat study for abnormal findings in the right periventricular/subcortical white matter vs demyelinating process versus a low-grade neoplasm. -Complete Echo with bubble study -PT/OT/ST evaluation Essential hypertension, currently well controlled with an admission bp of 134/71, present on admission -Allow for permissive hypertension of 220/110 HR 60 to allow for brain perfusion -Will continue home dose of losartan 50 mg and nifedipine 60 mg both once daily HLD -Lipid panel, pending -Continue home dose of rosuvastatin 20 mg po daily Risk stratification -Fasting lipid panel pending for 5 am labs. Last one done in record was in 08/01 and generally within normal limits -A1c 6%, prediabetic VTE prophylaxis: Wells risk score: 0 Enoxaparin 40 mg subQ daily Consults: none Patient is observation status as his stay is not likely to exceed 2 midnights. FEN: IV saline lock, heart healthy diet, BMP and magnesium in the am. Dispo: Likely discharge to home with specialty outpatient followup Code Status: DNR/DNI as discussed with patient and his . She will bring in his POLST to be scanned into the chart. Scores Wells' Criteria for PE Clinical signs and symptoms of DVT: No PE is #1 Dx or equally likely: No Heart rate > 100: No Immobilization at least 3 days or surg in previous 4 weeks: No History of PE or DVT: No Hemoptysis: No Malignancy w/Treatment within 6 months or palliative: No Wells' PE Score total: 0
--- NOTE | 2020-05-21 23:23 | PC.NURSE ---
Pt presents stable to ACU from ED. Mild hypertension, good appetite, VSS. Near complete vision loss in L eye. L eye non-reactive. Both pupils dilated d/t opthamologist intervention prior to arrival to ED. Mild ptosis L eye. Pt unused to unilateral vision and is placed as a high fall risk d/t complaint of dizziness at one point. Pt describes mild headache, refuses medical intervention, and also indicates seeing starbursts behind eyelid. Patch obtained and placed on L eye. Pt has hx of cataract surgery. bianca Fernandez HAs present, uses glasses to view long distance, not present at time of admission.
--- NOTE | 2020-05-22 | DI.ECHO.S_ITS ---
[facility] +---------+ : : [address] : [place] [address] : : : : [id number] : : : : Phone: [phone]+ Echocardiogram Report + + :Name: JERZY MORALES Study Date: 05/22/2020 Height: 67 in : :[facility] Weight: 180 lb : : Gender: Male BSA: 1.9 m2 : :: 1945 Age: 75 yrs BP: 147/96 mmHg: :Reason For Study: RETINAL ARTERY OCCLUSION : :Ordering Physician: EDILBERTO DIANE : :LABEL PRINTER Performed By: Jacquie Landis : :Referring: EDILBERTO DIANE : + + Interpretation Summary The left ventricle is normal in size. Left ventricular systolic function is normal. The ejection fraction is estimated to be 55-60%. Cannot rule out hypokinesis along the inferolateral wall. Consider a stress test image modality to see if any presence of significant ischemic heart disease. Diastolic parameters suggest a relaxation abnormality of the left ventricle, consistent with probable normal filling pressures. The right ventricle is normal in size and function. Pulmonary artery pressures cannot be estimated because of the lack of a measurable TR jet velocity but the IVC suggests a CVP of around 8 mmHg. The left atrium is mildly dilated. Right atrial size is normal. There is no Doppler evidence for an interatrial shunt. Injection of contrast documented no interatrial shunt. There is no significant valvular heart disease. The ascending aorta is at the upper limits of normal in size. Procedure: A two-dimensional transthoracic echocardiogram with color flow and Doppler was performed. The study quality was technically adequate. A saline contrast injection was performed to assess for cardiac shunting. There is no prior echocardiogram noted for this patient. The heart rate ranged between 55-68 bpm during the study. Left Ventricle: The left ventricle is normal in size. Left ventricular wall thickness is borderline increased. There is severe proximal septal thickening noted. Left ventricular systolic function is normal. The ejection fraction is estimated to be 55-60%. Cannot rule out hypokinesis along the inferolateral wall. Consider a stress test image modality to see if any presence of significant ischemic heart disease. Diastolic parameters suggest a relaxation abnormality of the left ventricle, consistent with probable normal filling pressures. Right Ventricle: The right ventricle is normal in size and function. Atria: The left atrium is mildly dilated. Right atrial size is normal. There is no Doppler evidence for an interatrial shunt. Injection of contrast documented no interatrial shunt. Mitral Valve: The mitral valve is normal in structure and function. There is mild mitral annular calcification. There is trace mitral regurgitation. Aortic Valve: The aortic valve is trileaflet. The aortic valve opens well. There is no aortic valve stenosis. No aortic regurgitation is present. Tricuspid Valve: The tricuspid valve is normal in structure and function. Pulmonary artery pressures cannot be estimated because of the lack of a measurable TR jet velocity but the IVC suggests a CVP of around 8 mmHg. Pulmonic Valve: The pulmonic valve leaflets are thin and pliable; valve motion is normal. There is mild pulmonic regurgitation. There is no significant valvular heart disease. Great Vessels: The aortic root is normal size. The ascending aorta is at the upper limits of normal in size. The IVC is of normal diameter and collapses less than 50% with a sniff. This suggests a right atrial pressure of 8 mm Hg. Pericardium/ Pleura There is no pericardial effusion. There is no pleural effusion. MMode/2D Measurements & Calculations LVIDd: 4.4 cm LVOT diam: 2.3 cm LVIDs: 3.0 cm Ao root diam: 3.4 cm FS: 32.8 % asc Aorta Diam: 3.4 cm EPSS: 0.84 cm Ao Arch Diam (Prox Trans): 2.6 cm IVSd: 1.1 cm LVPWd: 1.1 cm LV ny. diameter/BSA (cm/m^2): 2.3 LV sys. diameter/BSA (cm/m^2): 1.5 LA A2 area: 28.2 cm2 RA long axis: 5.5 cm LA A4 area: 15.6 cm2 RA area: 16.3 cm2 LA length (vol): 4.9 cm RA vol: 40.8 ml LA vol: 76.5 ml RA : 21.1 ml/m2 LA vol index: 39.6 ml/m2 IVC diam: 1.0 cm RVD1 (basal): 3.8 cm TAPSE: 1.8 cm Doppler Measurements & Calculations Ao V2 max: 120.4 cm/sec LVOT Max Cindy: 107.3 cm/sec Ao V2 mean: 79.2 cm/sec LV V1 max P.6 mmHg Ao max P.8 mmHg LV V1 VTI: 24.5 cm Ao mean P.9 mmHg IVANNA(I,D): 3.8 cm2 Ao V2 VTI: 27.4 cm IVANNA(V,D): 3.8 cm2 sev ratio: 0.89 IVANNA indexed to BSA (cm^2/m^2): 2.0 MV E max cindy: 63.4 cm/sec PA V2 max: 61.3 cm/sec MV A max cindy: 104.9 cm/sec PA V2 mean: 39.3 cm/sec MV E/A: 0.60 PA mean P.77 mmHg Med Peak E' Cindy: 4.3 cm/sec PA pr(Accel): 32.8 mmHg E/E' med: 14.7 Lat Peak E' Cindy: 7.5 cm/sec E/E' lat: 8.5 E/e' average: 11.6 MV dec time: 0.30 sec SV(LVOT): 103.7 ml Reading Physician:02:18 PM
[2020-05-22 00:24] VITALS: BP 121/62; PULSE 76; RESP 16; TEMP 37; O2SAT 95
[2020-05-22 06:00] VITALS: BP 118/67; PULSE 70; RESP 18; TEMP 36.8; O2SAT 95
[2020-05-22 06:49] LABS: Add Manual Diff / Slide Review NO; Basophils Absolute Auto 100 /uL (0-100); Eosinophils Absolute Auto 300 /uL (0-450); Eosinophils Percent Auto 5.1 % (2-4); Hemoglobin 11.9 g/dL (13.5-17.5); Lymphocytes Absolute Auto 1700 /uL (1100-4500); Mean Corpuscular HGB Conc 33.2 % (30-36); Mean Corpuscular Hemoglobin 29.3 PG (26-34); Mean Corpuscular Volume 88.5 fL (80-100); Monocytes Absolute Auto 500 /uL (0-900); Monocytes Percent Auto 8.6 % (3-14); Neutrophils Absolute Auto 3600 /uL (1500-7000); Neutrophils Percent Auto 58.3 % (50-75); Platelet Count 151 X10^3/uL (150-400); Red Blood Cell Count 4.07 X10^6/uL (4.5-5.9); Red Cell Distribution Width 14.3 % (11.6-14.8); White Blood Cell Count 6.2 X10^3/uL (4.5-11.0)
[2020-05-22 07:00] VITALS: BP 156/87; PULSE 102; RESP 16; TEMP 36.7; O2SAT 95
[2020-05-22 07:03] LABS: Blood Urea Nitrogen 26 mg/dL (9-20); Calcium 9.1 mg/dL (8.4-10.2); Carbon Dioxide 27 mmol/L (22-32); Chloride 111 mmol/L (98-107); Cholesterol 153 mg/dL (140-199); Estimated Glomerular Filt Rate > 60.0 mL/min (>60); Glucose 110 mg/dL (80-110); HDL Cholesterol 33 mg/dL (40-60); HEMOLYSIS < 15 (0-50); LDL Cholesterol Calculated 94 mg/dL (<100); Magnesium 2.3 mg/dL (1.6-2.3); Potassium 4.2 mmol/L (3.4-5.1); Sodium 139 mmol/L (137-145); Triglycerides 131 mg/dL (35-150)
--- NOTE | 2020-05-22 09:40 | OT.IP.EVAL ---
Past Medical History (Last Updated 05/21/20 @ 21:18 by CHRISTO Palmer) Angioedema Cataracts, bilateral Essential hypertension H/O urinary retention HLD (hyperlipidemia) Surgical History (Last Updated 05/21/20 @ 21:18 by CHRISTO Palmer) Hx of knee surgery Occupational Therapy Inpatient Evaluation/Re-Eval M1 PT/OT-IP Prior Functional Status Start: 05/22/20 14:16 Freq: NEEDED Status: Active Protocol: Document 05/22/20 08:53 [facility] (Rec: 05/22/20 14:39 [facility] [id number]) Medical Review Prior Functional Status Diet/Fluid Consistency Regular,Thin Liquids Communication Independent. Mobility and Gait Independent and able to wwalk his dogs daily. 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 Social History Household Members spouse Living Arrangements House Number of Floors (Floors) One Floor Number of Stairs To Enter/Railing? 0 steps from the back door, 2 steps from the front. Home Environment Standard Height Toilet,Walk in Shower,Tub/Shower Doors Additional Social History Comment Pt woke up 05/21/20 with left eye flashes and DR. Dolan able to determine pt has central retinal occlusion in left eye and referred to go to ER to see about pt possibly having a CVA. MRI results were negative. M2 OT-IP Current Condition Start: 05/22/20 14:16 Freq: Status: Active Protocol: Document 05/22/20 08:53 [facility] (Rec: 05/22/20 14:39 [facility] [id number]) Occupational Therapy Current Condition Current Condition Evaluation Date 05/22/20 Treatment Diagnosis Central retinal artery occlusion left eye Diagnosis Onset Date 05/21/20 M3 OT- IP Subjective and Pain Start: 05/22/20 14:16 Freq: Status: Active Protocol: Document 05/22/20 08:53 [facility] (Rec: 05/22/20 14:39 [facility] [id number]) OT- Subjective Occupational Therapy Visit Type Type Initial Evaluation Visit Start Time 08:53 Visit Stop Time 09:40 Total Visit Minutes 47 Occupational Therapy Visit Comments Patient Comments Pt agreed to do OT eval. Patient/Caregiver Goals TO go home. OT Pain Assessment Pain When Pain Assessed At Rest Pain Present Pain Present Denied Pain M4 OT- IP ADL's Start: 05/22/20 14:16 Freq: Status: Active Protocol: Document 05/22/20 08:53 [facility] (Rec: 05/22/20 14:39 [facility] [id number]) OT TQM-Swii-Eodrbvy Comments OT Self-Feeding Comments NOt at meal time, pt states has no issues. OT ADL-Grooming General Evaluation Grooming Ability Independent OT ADL-Oral Care General Eval Oral Care Ability Independent OT ADL-Dressing General Eval Upper Body Dressing Ability Independent Lower Body Dressing Ability Independent OT ADL-Toileting General Evaluation Toileting Ability Independent OT ADL-Bathing Comments OT Bathing Comments NOt performed M5 OT- IP IADL's Start: 05/22/20 14:16 Freq: Status: Active Protocol: Document 05/22/20 08:53 [facility] (Rec: 05/22/20 14:39 [facility] [id number]) OT-Instrumental Activities of Daily Living Home Safety Awareness Awareness of Need for Assistance at Home Good Awareness Ability to Problem Solve Emergency Able to Problem Solve Situations Medication Management Medication Management No Deficits Identified Money Management Money Management Caregiver Provides Assistance Meal Preparation Meal Preparation Comments At this time suggested pt's to help supervise pt due to his decreased vision especially with depth perception. Bow Tacker Bow Tacker Comments At this time suggested pt's to help supervise pt due to his decreased vision especially with depth perception. Driving Driving Concerns Identified Regarding Safety M6 OT- IP Functional Cognition Start: 05/22/20 14:16 Freq: Status: Active Protocol: Document 05/22/20 08:53 [facility] (Rec: 05/22/20 14:39 [facility] [id number]) Cognitive Factors Limiting Selfcare Function Cognitive Ability Level of Alertness Alert Patient Orientation Name,Age,Birthday,Month,Date, Year,Day of Week,Place, Situation Attention Span Ability Capable of Focused Attention, Capable of Sustained Attention Ability to Follow Commands Able to Follow Multi-Step Commands Memory Description No Deficits Noted Safety Awareness No Deficits Noted Problem Solving Ability No deficits Noted Executive Function Ability No Deficits Noted Cognitive Comments Cognitive Assessment Comments Pt cognitively intact. OT- Vision and Hearing OT- Hearing Assessment OT- Hearing Assessment Hearing Impaired OT- Vision Assessment Vision History Cataracts Visual Acuity Glasses All The Time Vision Assessment Comments Right eye a little dilated WFL for scanning however not able to see clearly close up and but able to see the clock. Pt states his right eye vision is much improved from yesterday when he had his eyes dilated. Pt's left eye is covered. Pt having difficulty with depth perception at this time due to just use of right eye now. Educated pt to try to keep his head turned to the left to increase his field of vision and be sure to scan the environment from bottom up, thus helping to prevent from falls due to decreased vision . At this time pt agreed best not to drive to at this time. M7 OT- IP Mobility and Balance Start: 05/22/20 14:16 Freq: Status: Active Protocol: Document 05/22/20 08:53 [facility] (Rec: 05/22/20 14:39 [facility] [id number]) OT- Bed Mobility Assessment Rolling Level of Assistance Independent Supine to Sit Supine to Sit Assist Independent Sit to Supine Sit to Supine Assist Independent OT-Transfer Assessment Sit to and From Stand Sit to and from Stand Independent Transfers Transfer Ability Independent,Standby Assistance Technique Transfer Destination Bed,Chair Devices Transfer Assistive Devices None Comments Mobility Comments Pt initially a little unsteady on his feet and then after walking in the room more steady and states feels 80% back to normal. Pt agrees that his lack of vision in making his mobility harder. Suggested if going outside on uneven terrain to have his present or use of a walking stick or his foot to help better just depth perception when stepping on uneven terrain. Pt agreed that his to walk the dogs for now. OT- Gait Assessment Gait Gait Assistance Required: Independent,Standby Assistance Comments Gait Ability Comments Independent for level surfaces and will benefit from supervision on uneven terrain. OT- Balance Assessment Sitting Balance and Reactions Static Sitting Balance Ability Normal Dynamic Sitting Balance Ability Normal Standing Balance and Reactions Static Standing Balance Ability Normal Dynamic Standing Balance Ability Good M8 OT- IP Objective Assessments Start: 05/22/20 14:16 Freq: Status: Active Protocol: Document 05/22/20 08:53 [facility] (Rec: 05/22/20 14:39 [facility] [id number]) OT Gross Range of Motion Upper Extremity Range of Motion Assessment Within Functional Limits OT Strength Upper Extremity Strength Assessment Within Functional Limits OT-Muscle Tone Assessment Muscle Tone WNL Yes M9 OT- IP Assessment and Plan Start: 05/22/20 14:16 Freq: Status: Active Protocol: Document 05/22/20 08:53 [facility] (Rec: 05/22/20 14:39 [facility] [id number]) OT Summary Assessment and Plan Potential Rehabilitation Potential Good Analytic Complexity at Evaluation Low Summary OT goals: to be able to follow visual techniques to increase his field of vision and safety during mobility and ADl needs independently OT Impairments Balance,Functional Mobility, Bathing Progress Towards Goals Progressing Toward Goals,Slow Progress due to Medical Issues Assessment Summary Pt low complexity and main barrier is his vision due to recent diagnosis of left central artery occlusion which now affecting his higher level balance, judgment of depth perception, and not able to read up close at this time . Pt able to do all basic ADL 's on eval . Pt agreed best not to drive at this time until and if able to be cleared by a doctor, specifically eye doctor as now his depth perception and close up vision is impaired. Pt has a supportive to be able to assist with needs as needed. Goals Days to Meet Goals 1 Frequency of Treatment Frequency Of Treatment Once a Day Treatment Plan OT Treatment Plan Vision Retraining,Patient/ Family Education,Discharge Planning Discharge Recommendations OT Discharge Recommendations Home with Assistance Transportation Needs at Discharge Private Vehicle
[2020-05-22] MEDS: ASPIRIN EC 81 MG TABLET PO (10:59)
[2020-05-22] MEDS: ENOXAPARIN 40 MG/0.4 ML SYRINGE SUBCUT (10:59)
[2020-05-22] MEDS: SODIUM CHLORIDE 0.9% FLUSH 10 ML IV (11:00)
--- NOTE | 2020-05-22 12:09 | CM.DPC ---
DCP: Case received, EMR reviewed and met with patient. Introduced self and role. Was able to obtain information from patient regarding his baseline activity status prior to hospitalization. DCP assessment completed with information currently available. Patient is a 75 year old male who admitted yesterday afternoon to the care of the hospitalist team. PCP: Dr. De Leon. Payer: confirmed: [facility]. Patient came to the hospital, he was sent over by the advice of her primary care provider. Patient was having problems with his left eye, some visual loss. Patient had MRI, no noted CVA. Patient is noted to have central retinal artery occlusion. Met with patient in his room. He is alert and oriented, independent at baseline. He has a patch over his left eye. Patient resides in [place] with his spouse, Jolanta. He stated, they are both very active. P: DCP to continue to follow. Discussed in team rounds, vision may not be restored, has seen eye MD. He is also to be working with P.T as well. Lashon Ojeda RN/Vat Tender
--- NOTE | 2020-05-22 12:45 | PT.IIE ---
Surgical History (Last Updated 05/21/20 @ 21:18 by CHRITSO Palmer) Hx of knee surgery Medical History (Last Updated 05/21/20 @ 21:18 by CHRISTO Palmre) Angioedema Cataracts, bilateral Essential hypertension H/O urinary retention HLD (hyperlipidemia) Physical Therapy Inpatient Evaluation/Re-Eval M1 PT/OT-IP Prior Functional Status Start: 05/22/20 14:16 Freq: NEEDED Status: Active Protocol: Document 05/22/20 08:53 [facility] (Rec: 05/22/20 14:39 [facility] [id number]) Medical Review Prior Functional Status Diet/Fluid Consistency Regular,Thin Liquids Communication Independent. Mobility and Gait Independent and able to walk his dogs daily. 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 Social History Household Members spouse Living Arrangements House Number of Floors (Floors) One Floor Number of Stairs To Enter/Railing? 0 steps from the back door, 2 steps from the front. Home Environment Standard Height Toilet,Walk in Shower,Tub/Shower Doors Additional Social History Comment Pt woke up 05/21/20 with left eye flashes. M2 PT-IP Current Condition Start: 05/22/20 09:08 Freq: NEEDED Status: Active Protocol: Document 05/22/20 12:31 [place] (Rec: 05/22/20 13:05 [place] [id number]) Physical Therapy Current Condition Current Condition Evaluation Date 05/22/20 Treatment Diagnosis L eye vision loss; Difficulty with balance Onset Date 05/21/20 M3 PT-IP Subjective Start: 05/22/20 09:08 Freq: NEEDED Status: Active Protocol: Document 05/22/20 12:31 [place] (Rec: 05/22/20 13:05 [place] [id number]) Subjective Physical Therapy Visit Type Type Initial Evaluation Visit Start Time 10:45 Visit Stop Time 11:21 Total Visit Minutes 36 Notes SPT Chung led session under direct supervision of PT Liberty. Number of [employer] Visits 0 Physical Therapy Visit Comments Patient Comments Pt is agreeable to do PT. M4 PT-IP Mobility and Gait Start: 05/22/20 09:08 Freq: NEEDED Status: Active Protocol: Document 05/22/20 12:31 [place] (Rec: 05/22/20 13:05 [place] [id number]) PT-Transfer Assessment Sit to and From Stand Sit to and from Stand Standby Assistance,Use of Upper Extremities Equipment Transfer Assistive Device None,Gait Belt Orthotic/Prosthetic Devices or Brace: No Transfers Transfer Destination Chair Transfer Technique Amb Transfer Ability Level of Assist Standby Assistance Comments Mobility Comments Pt was sitting in chair upon arrival. Pt completed sit to stand with SBA and B armrests. In standing, pt participated in balance assessment. Pt demonstrated difficulty with balancing in tandem stance. Increased difficulty was noted when placing the L foot in front of the R foot. Single leg balance was < 3 sec on both sides. After balance assessement, pt amb ~400 ft in the hallway to the stairs and back to the room with SBA. Pt scored 10/12 on 4-item DGI . Pt demonstrated decreased gait speed during vertical and horizontal head turns. Pt then performed 3 steps x3 without railing with CGA. The first time, pt demonstrated some unsteadiness when he attempted to do step-over pattern. Cues were provided to do step-to pattern. Pt was steady for the next 2 trials. Pt reported he gets dizzy when he is looking down at the stairs when descending. Cues were provided to slow down. Pt amb back to the room and sat on R side EOB with SBA. ecologist technician was in the room getting ready for examination. Pt safely handed off to surgical instrument technician. Gait Assessment Gait Gait Assistance Required: Standby Assistance Distance (Feet) 400 Assistive Devices Assistive Device None,Gait Belt Orthotic/Prosthetic Devices or Brace: No Gait Deviations General Gait Pattern Within Normal Limits Comments Gait Comments See mobility comments. Stair Climbing Assessment Evaluation Level of Assist On Stairs Contact Guard Assistance Devices Stair Climbing Assistive Devices None Technique/Endurance Stair Climbing Direction Ascend and Descend Stair Climbing Technique Step to Step Number of Steps Climbed 3 Query Text: Stair Climbing Set # Repetitions (reps) 3 Comments Stair Climbing Comments See mobility comments. PT-Balance Assessment Sitting Balance and Reactions Static Sitting Balance Ability Normal Dynamic Sitting Balance Ability Normal Standing Balance and Reactions Static Standing Balance Ability Normal Dynamic Standing Balance Ability Good M5 PT-IP Objective Assessments Start: 05/22/20 09:08 Freq: NEEDED Status: Active Protocol: Document 05/22/20 12:31 [place] (Rec: 05/22/20 13:05 DE [id number]) Orientation Orientation/Cognition Level of Alertness Alert Orientation Name,Age,Birthday,Month,Date, Year,Day of Week,Place, Situation Language Function Ability No Deficits Noted Safety Awareness Understands Safety Issues Memory Description No Deficits Noted Gross Range of Motion Upper Extremity ROM Assessment Within Functional Limits Lower Extremity ROM Assessment Within Functional Limits Strength Upper Extremity Strength Assessment Within Functional Limits Lower Extremity Strength Assessment Within Functional Limits Coordination Assessment Gross Coordination Gross Coordination WNL Sensation Assessment Sensation Gross Sensation Right UE Impaired Light Touch Impaired Comments Sensation Comments Pt has numbness in the RUE from a neck injury that has been treated by outpatient physical therapist. Muscle Tone Muscle Tone WNL Yes M6 PT-IP Treatment Start: 05/22/20 09:08 Freq: NEEDED Status: Active Protocol: Document 05/22/20 12:31 [place] (Rec: 05/22/20 13:05 SC [id number]) Physical Therapy Treatment Education Education Provided Safety Other Treatments Other Treatment Performed Provided education on monitoring BP, signs of stroke , safety, and role of PT. M7 PT-IP Assessment and Plan Start: 05/22/20 09:08 Freq: NEEDED Status: Active Protocol: Document 05/22/20 12:31 [place] (Rec: 05/22/20 13:05 [place] [id number]) PT Summary Assessment and Plan Potential Rehabilitation Potential Good Status of Condition at Evaluation Evolving Summary Impairments Pain,ROM,Strength,Balance, Sensation,Bed Mobility, Transfers,Gait,Activity Tolerance Progress Towards Goals Safe For Discharge Assessment Summary Ibrahima is a 75 yo male who was admitted to the hospital for L pupil dilation and L eye vision loss with MRI findings of stenosis in L ICA and L vertebral artery. At baseline, Pt is IND for all mobility, amb, and ADLs without AD. On evaluation, pt is CGA-SBA for all mobility, transfers, amb, and stair climbing without AD. Pt amb ~400 ft and performed 3 steps x3 without railing. However, pt showed balance deficits. Pt scored 10/12 on 4 -item DGI, indicating some level of fall risk. Pt also demonstrated difficulty performing tandem stance and single leg balance. PT anticipates pt will be safe to d/c home once medically cleared. Pt will benefit from outpatient physical therapy to improve balance and reduce fall risk. Frequency of Treatment Frequency Of Treatment Discharge Recommendations To Nursing Amount of Assist Needed Standby Assistance Discharge Recommendations PT Discharge Recommendations Home,Outpatient PT Transportation Needs at Discharge Private Vehicle Treatment was provided by Chung Chavez, SPT and supervised by Liberty Naqvi, PT. I personally reviewed this note and agree with its contents.
--- NOTE | 2020-05-22 16:02 | PM.DS.1 ---
History of Present Illness History of Present Illness Date Patient Seen: 05/21/20 Chief complaint: sent by doctor for concerns of stroke Narrative: Written by Amairani VILLAFUERTE: Ibrahima Bang is a 75 y.o. male with hypertension, hyperlipidemia and a history of bilateral cataract removal with IOL implants was in his usual state of health woke up this morning and normally is able to keep light out of his field of vision with the use of a sleep mask, was seeing light come through his sleep mask covering his left eye. He complained of seeing flashes and still does. His was not feeling well, let her sleep in, and presented to the ED around 10 am. In the ED, his left pupil was found to be fixed and dilated and was diagnosed with left eye vision loss. Head CT was negative for a brain bleed or lesion. He was discharged with a referral to Dr. Dolan, radio officer who saw him today and was diagnosed with a left sided retinal artery occlusion. He was referred back to the ED for further evaluation of for a CVA and underwent a head MRI and found to have high grade stenosis of the left ICA, multifocal moderate and high grade stenosis of the left vertebral artery and an incidental abnormal finding of the right frontal periventricular/subcortical white matter concerning for microvascular ischemic changes, a demyleinating process or an infiltrating low grade neoplasm. He is being placed into observation for further evaluation for a TIA vs CVA. He denies headaches, continues to have white flashes causing him some distress and requesting an eye patch, denies nasal congestion, swallowing difficulties, shortness of breath, chest pain, n/v, has chronic urinary retentioned worsened by beer and relieved for months after taking a one time dose of Aleve, diarrhea or constipation. He does endorse having right handed numbing and tingling and has been going to physical therapy for this and attributes this to problems with his neck. 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 He does endorse having bilateral lower extremity swelling for which she wears compression stockings which have significantly improved though symptoms. He states he was told a long time ago that he had an irregular heart beat, skipped beats. He presents with a temperature 147/96, blood pressure 147/96, heart rate 79, respiratory rate of 17, oxygen saturation 99% on room air, weighs 82 kg with a BMI of 28.3. CBC and BMP were done earlier today and were not impressive. His hemoglobin A1c is 6.0 and TSH is 1.97. Lipid panels pending. COVID 19 is negative. Discharge Providers Provider Date of admission: 05/21/20 16:03 Discharge Date: 05/22/20 Primary care physician: Alyx De Leon PA-C Consults: 05/21/20 19:59 Consult to Occupational Therapy Evaluate & Treat Comment: Physician Instructions: Evaluate and treat 05/21/20 20:00 Consult to Physical Therapy Evaluate & Treat Comment: Physician Instructions: Evaluate and Treat Discharge provider: Mary Kate Kramer DO Summary Hospital Course Discharge Diagnosis: 1. Acute left central retinal artery occlusion, present on admission. Active. 2. Hypertension, chronic, present on admission. Stable. 3. Hyperlipidemia, chronic, present on admission. Stable. Hospital Course: Ibrahima Bang is a 75-year-old male with a past medical history significant for hypertension, hyperlipidemia and bilateral cataract removal with IOL implants who presented to the ED at [facility] of Ophthalmology after left central retinal artery occlusion to complete stroke rule out. 1. Acute left central retinal artery occlusion, present on admission. Active. 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 -Initial NIH score 2 due to left eye blindness. Continued frequent neuro checks. -CT brain without contrast did not demonstrate any acute intracranial abnormalities. -MR stroke protocol demonstrated no acute infarction or hemodynamically significant cerebral arterial occlusion or stenosis. Neck arteries demonstrated 50% stenosis of the origin of the left internal carotid artery, moderate 60-69% stenosis of the origin of the left internal carotid artery, short segment, moderate stenosis involving the V4 segment of the right vertebral artery and patient is right vertebral artery dominant and multifocal moderate and high-grade stenoses involving the left vertebral artery. Noted, periventricular and subcortical white matter chronic microvascular ischemic changes and mild diffuse cerebral volume loss, 5 millimeter right frontal cavernous angioma and severe left maxillary sinusitis. -EKG demonstrated sinus rhythm without acute ischemic changes such as ST elevation or depression. Continued to monitor closely on telemetry. Patient remained in sinus rhythm without ectopy throughout hospitalization. -Allowed for permissive hypertension x 24 hours. Restarted home antihypertensives after 24 hours. -Echocardiogram did not demonstrate PFO or embolic source. The LV is normal in size and function with EF 55-60%, possible hypokinesis along inferior lateral wall, diastolic parameters suggest a relaxation abnormality of the left ventricle consistent with probable normal filling pressures, RV normal in size and function, PA pressures cannot be estimated because of the lack of a measurable TR jet velocity but the IVC suggests a CVP of around 8 mmHg, LA is mildly dilated, right atrial size is normal, no significant valvular heart disease, and ascending aorta is at the upper limits of normal in size. -Risk stratified with hemoglobin A1c which was 6.0% indicative of prediabetes and fasting lipid panel which demonstrated excellent lipid control with: Total cholesterol 153, triglycerides 121, LDL 94 (goal <100) and HDL 33. -Continued physical therapy and occupational therapy evaluation treatment. Recommend outpatient physical and occupational therapy for visual field training. -Started and continued aspirin 81 mg daily and continued home rosuvastatin 20 mg daily at bedtime for stroke prophylaxis. -Recommended stress test in near future to rule out obstructive cardiac disease due to possible inferior lateral wall hypokinesis on echocardiogram. -Recommended sleep study to evaluate for obstructive sleep apnea and treat if present. -Patient was evaluated by Dr. Dolan of Ophthalmology who informed the patient that he will likely have permanent vision loss in left eye. Patient has follow-up appointment in [address] Dolan of Ophthalmology. 2. Hypertension, chronic, present on admission. Stable. -Allowed for permissive hypertension of 220/110 to allow for cerebral perfusion. -Restarted and continued home losartan 50 mg daily and nifedipine 60 mg daily. 3. Hyperlipidemia, chronic, present on admission. Stable. -Fasting lipid panel demonstrated excellent lipid control as above. -Continued home rosuvastatin 20 mg daily at bedtime. Exam Vital Signs (past 8 hours): Oxygen Delivery Method Room Air Oxygen Flow Rate 0 Narrative Exam Narrative: General: Elderly male sitting in bed and in no acute distress, well-developed, well-nourished, appropriately interactive. HEENT: Normocephalic, atraumatic. External ears without defect. Right pupil round and reactive to light. Left eye blindness with fixed and nonreactive pupil. Anicteric sclerae, moist conjunctivae, and no lid lag. Oropharynx free of erythema and cobble stoning with moist mucosa. Neck: Supple with full range of motion. No jugular venous distension. No bruits. No lymphadenopathy or thyromegaly. Cardiovascular: Regular rate and rhythm without murmurs, rubs, or gallops appreciated. Pulmonary: Clear to auscultation bilaterally without crackles, wheezes, or rhonchi. Normal respiratory effort with no use of accessory muscles. Abdomen: Soft, bowel sounds present, nontender, nondistended. No hepatosplenomegaly or masses appreciated. Extremities: No clubbing, cyanosis, or edema. Skin: Normal temperature, turgor, and texture; no rash, ulcers, or subcutaneous nodules appreciated. Neurological: Cranial nerves grossly intact. Left eye blindness. Normal muscle strength, tone, and bulk. Reflexes, coordination, and sensory function within normal limits. No known gait impairment. Psychiatric: Normal mood and affect. Alert and oriented to person, place, and time. Objective Labs Result Diagrams: 05/22/20 06:10 05/22/20 06:10 Labs: Laboratory Results - last 24 hr 05/21/20 05/21/20 05/21/20 16:00 20:05 20:05 WBC RBC Hgb Hct MCV MCH MCHC RDW Plt Count Neut % (Auto) Lymph % (Auto) Levy % (Auto) Eos % (Auto) Baso % (Auto) Neut # (Auto) Lymph # (Auto) Levy # (Auto) Eos # (Auto) Baso # (Auto) Sodium Potassium Chloride Carbon Dioxide BUN Creatinine Estimated GFR BUN/Creatinine Ratio Glucose Hemoglobin A1c 6.0 Calcium Magnesium Triglycerides Cholesterol LDL Cholesterol, Calc HDL Cholesterol TSH 1.97 COVID-19 PCR Negative 05/22/20 05/22/20 05/22/20 06:10 06:10 06:10 WBC 6.2 RBC 4.07 L Hgb 11.9 L Hct 36.0 L MCV 88.5 MCH 29.3 MCHC 33.2 RDW 14.3 Plt Count 151 Neut % (Auto) 58.3 Lymph % (Auto) 27.0 Levy % (Auto) 8.6 Eos % (Auto) 5.1 H Baso % (Auto) 1.0 Neut # (Auto) 3600 Lymph # (Auto) 1700 Levy # (Auto) 500 Eos # (Auto) 300 Baso # (Auto) 100 Sodium 139 Potassium 4.2 Chloride 111 H Carbon Dioxide 27 BUN 26 H Creatinine 0.93 Estimated GFR > 60.0 BUN/Creatinine Ratio 28.0 H Glucose 110 Hemoglobin A1c Calcium 9.1 Magnesium 2.3 Triglycerides 131 Cholesterol 153 LDL Cholesterol, Calc 94 HDL Cholesterol 33 L TSH COVID-19 PCR [facility] Medical History (Updated 05/21/20 @ 21:18 by CHRISTO Palmer) Angioedema Cataracts, bilateral Essential hypertension H/O urinary retention HLD (hyperlipidemia) Surgical History (Updated 05/21/20 @ 21:18 by CHRISTO Palmer) Hx of knee surgery Family History (Updated 05/21/20 @ 21:19 by CHRISTO Palmer) Mother CVA (cerebral vascular accident) Tobacco consumption Father CVA (cerebral vascular accident) Hydrocephalus Other Hypertension Social History household members: spouse Smoking Status: Never smoker alcohol intake: current Discharge Plan Discharge Plan Patient Disposition: Home Provider Discharge Comment: You are being discharged home. You did not have a stroke. You have left retinal artery occlusion. You have been started on aspirin 81 mg daily and continue rosuvastatin 20 mg daily at bedtime for stroke prevention. Please follow-up with your primary care provider, Alyx De Leon, at your scheduled appointment regarding your hospitalization and recommend a stress test to asses your heart and sleep study to assess for sleep apnea an treat if present. Please follow-up with Ophthalmology regarding your left retinal artery occlusion. Discharge orders & Medications Prescriptions: New aspirin 81 mg Tablet,Delayed Release (Dr/Ec) 81 mg PO DAILY Qty: 30 RF: 0 Continued nifedipine 60 mg tablet extended release 24hr 60 mg PO DAILY RF: 0 rosuvastatin 20 mg tablet 20 mg PO QPM RF: 0 omega 3-pje-xcf-fish oil [Fish Oil] 1,000 mg (120 mg-180 mg) Capsule 1 cap PO DAILY RF: 0 losartan 50 mg tablet 50 mg PO DAILY Qty: 30 RF: 0 Follow up/Referrals: Alyx De Leon PA-C [Primary Care Provider] - 06/02/20 11:00 am (appt:06/02 @ 1100 check in with catrachito @ the [place] ) Diet/Activity/Treatments Diet: Carb-consistent/Diabetic, Low-fat, Low-sodium and Low-cholesterol Visit Report/Discharge Packet Instructions: DI for Prediabetes Discharge Data Primary Care Provider: Alyx De Leon Attending Provider: Geronimo Bains
== END 2020-05-22 16:20 | disposition home or self-care (01) ==
LOC: ED 15:50 → AC 16:03
PROVIDERS: Nurse Practitioner Family; Admitting Provider Internal Medicine; Emergency Provider Emergency Medicine; PCP Student in an Organized Health Care Education/Training Program; Visit Provider Internal Medicine
DX: H34.9 Unspecified retinal vascular occlusion (principal); H54.62 Unqualified visual loss, left eye, normal vision right eye; I10 Essential (primary) hypertension; H26.9 Unspecified cataract; E78.5 Hyperlipidemia, unspecified; Z11.59 Encounter for screening for other viral diseases
CPT/HCPCS: 36415; 70450; 70548; 70553; 80048; 80053; 80061; 83036; 83735; 84443; 85025; 85610; 85651; 85730; 86140; 87635; 93005; 93010; 93306; 96372; 97161; 97165; 97530; 99284; G0378; A9579; J1650

== ENCOUNTER → 2020-09-18 14:50 | Outpatient (ROUT) | payer OTHER, SELFPAY ==
[2020-07-15 14:46] VITALS: BMI 28.3
[2020-09-18 15:07] LABS: Blood Urea Nitrogen 37 mg/dL (9-20); Calcium 10.4 mg/dL (8.4-10.2); Carbon Dioxide 27 mmol/L (22-32); Chloride 99 mmol/L (98-107); Estimated Glomerular Filt Rate 50.5 mL/min (>60); Glucose 212 mg/dL (80-110); HEMOLYSIS < 15 (0-50); Potassium 3.3 mmol/L (3.4-5.1); Sodium 138 mmol/L (137-145)
== END ==
PROVIDERS: PCP Student in an Organized Health Care Education/Training Program; Visit Provider Student in an Organized Health Care Education/Training Program
DX: I10 Essential (primary) hypertension (principal)
CPT/HCPCS: 80048

== ENCOUNTER → 2020-10-03 11:01 | Outpatient (CLI) | payer OTHER, SELFPAY ==
[2020-07-15 14:46] VITALS: BMI 28.3
[2020-10-03 12:27] LABS: Prostate Specific Antigen 8.49 ng/mL (0.10-4.00)
== END ==
PROVIDERS: PCP Student in an Organized Health Care Education/Training Program; Referring Provider Specialist; Visit Provider Specialist
DX: N40.0 Benign prostatic hyperplasia without lower urinary tract symptoms (principal)
CPT/HCPCS: 36415; 84153

== ENCOUNTER → 2020-10-09 14:32 | Outpatient (CLI) | payer OTHER, SELFPAY ==
[2020-07-15 14:46] VITALS: BMI 28.3
--- NOTE | 2020-10-09 | DI.RAD.S_ITS ---
PROCEDURE: XR RIBS LT MIN 3V W CXR1V INDICATIONS: INSPIRATORY PAIN IN LEFT RIB TECHNIQUE: 2 views of the left ribs were acquired, along with a single view chest. COMPARISON: None. FINDINGS: Surgical changes and devices: None. Bones and chest wall: No fractures or dislocations. No suspicious bony lesions. Overlying soft tissues appear unremarkable. Lungs and pleura: No pleural effusions or pneumothorax. Lungs appear clear. Mediastinum: Mediastinal contours appear normal. Heart size is normal. IMPRESSION: No displaced rib fractures. Dictated by: Dinesh Marshall M.D. on 10/09/2020 at 17:41 Approved by: Dinesh Marshall M.D. on 10/09/2020 at 17:43
== END ==
PROVIDERS: PCP Student in an Organized Health Care Education/Training Program; Referring Provider Physician Assistant; Visit Provider Physician Assistant
DX: R07.1 Chest pain on breathing (principal); R07.81 Pleurodynia
CPT/HCPCS: 71101

== ENCOUNTER → 2021-02-12 13:25 | Outpatient (CLI) | payer OTHER, SELFPAY ==
[2020-07-15 14:46] VITALS: BMI 28.3
== END ==
PROVIDERS: PCP Student in an Organized Health Care Education/Training Program; Referring Provider Specialist; Visit Provider Specialist
DX: R97.20 Elevated prostate specific antigen [PSA] (principal); N40.1 Benign prostatic hyperplasia with lower urinary tract symptoms; N13.8 Other obstructive and reflux uropathy
CPT/HCPCS: 36415; 84153

== ENCOUNTER → 2022-04-04 09:50 | Outpatient (CLI) | payer OTHER, SELFPAY ==
[2020-07-15 14:46] VITALS: BMI 28.3
--- NOTE | 2022-04-04 09:52 | DI.MRI.S_ITS ---
PROCEDURE: MR CERVICAL SPINE WO CON INDICATIONS: Cervicalgia TECHNIQUE: Noncontrast sagittal T1 spin echo and T2 fast spin echo, sagittal STIR, foraminal oblique sagittal T2 fast spin echo, and axial gradient echo or T2 fast spin echo through the cervical spine. COMPARISON: None. FINDINGS: Image quality: Excellent. Alignment and Curvature: Normal cervical spine vertebral body height and alignment. Bone Marrow: No suspicious focal marrow signal abnormality or bone marrow edema. Spinal Cord: Normal morphology and signal intensity of the cervical cord. There is no syrinx. Paraspinous Soft Tissues: Prevertebral and paraspinous soft tissues demonstrate no acute finding. Left thyroid lobe nodule measuring at least 2 centimeters, only partially visualized. C2-C3: No spinal canal or neural foraminal stenosis. C3-C4: No spinal canal stenosis. Mild bilateral neural foraminal narrowing due to facet and uncovertebral spurring. C4-C5: Moderate spinal canal stenosis due to posterior disc-osteophyte complex flattening the ventral cord and posteriorly displacing the cord. CSF ventral and dorsal to the cord is effaced. There is mild flattening of both the ventral and dorsal cord surfaces. Moderate to severe bilateral neural foraminal narrowing due to facet and uncovertebral hypertrophy. C5-C6: Mild spinal canal stenosis due to posterior disc osteophyte complex. Moderate right and mild left neural foraminal narrowing due to facet and uncovertebral hypertrophy. C6-C7: Moderate spinal canal stenosis due to posterior disc osteophyte complex and severe bilateral neural foraminal narrowing due to facet and uncovertebral hypertrophy. C7-T1: No spinal canal stenosis. Mild left neural foraminal narrowing. 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 Dictated by: Rick Smith M.D. on 04/05/2022 at 9:26 Approved by: Rick Smith M.D. on 04/05/2022 at 9:29
== END ==
PROVIDERS: PCP Student in an Organized Health Care Education/Training Program; Referring Provider Physical Medicine & Rehabilitation Pain Medicine; Visit Provider Physical Medicine & Rehabilitation Pain Medicine
DX: M47.812 Spondylosis without myelopathy or radiculopathy, cervical region (principal); M54.2 Cervicalgia
CPT/HCPCS: 72141

== ENCOUNTER 2022-08-04 12:36 | Emergency (ER) | payer OTHER, SELFPAY ==
[2020-07-15 14:46] VITALS: BMI 28.3
[2022-08-04 12:38] VITALS: BP 146/77; PULSE 86; RESP 22; TEMP 36.6; O2SAT 98; BMI 25.0
--- NOTE | 2022-08-04 12:47 | DI.RAD.S_ITS ---
PROCEDURE: XR RIBS RT MIN 3V W CXR 1V INDICATIONS: fall/pain TECHNIQUE: 2 views of the right ribs were acquired, along with a single view chest. COMPARISON: None. FINDINGS: Surgical changes and devices: None. Bones and chest wall: No fractures or dislocations. No suspicious bony lesions. Overlying soft tissues appear unremarkable. Lungs and pleura: No pleural effusions or pneumothorax. Lungs appear clear. Mediastinum: Mediastinal contours appear normal. Heart size is normal. IMPRESSION: No gross displaced right rib fracture is seen. No acute cardiopulmonary pathology. Dictated by: Narendra Richardson M.D. on 08/04/2022 at 13:37 Approved by: Narendra Richardson M.D. on 08/04/2022 at 13:43
[2022-08-04] MEDS: LIDOCAINE PATCH 1 EACH ADH..PATCH TOP (13:34)
--- NOTE | 2022-08-04 14:04 | ED_ITS ---
HPI - Fall General Chief Complaint: Fall Stated Complaint: GLF Time Seen by Provider: 08/04/22 14:04 Source: patient Mode of arrival: Wheelchair History of Present Illness HPI Narrative: 77-year-old male nonsmoker with history of hypertension (not on any anticoagulation) presents with his in the chief complaint of right-sided rib pain after a fall down about 3 stairs. He denies any head neck or back pain. He has full recall of the event denies any dizziness, weakness or lightheadedness. He is had no nausea, vomiting or abdominal pain. He denies any prodromal symptoms contributing to the fall. He is activated as a modified trauma given fall with suspected injury and age greater than 65. He states that he has significant right-sided posterior rib pain, this pain is sharp and stabbing, worse with motion and deep breaths and improves with rest. He denies any extremity pain or injury. Related Data Home Medications Medication Instructions Recorded Confirmed nifedipine 60 mg tablet,extended 60 mg PO DAILY 12/13/19 02/19/21 release 24 hr omega 4-ymq-dpz-fish oil 1,000 mg 1 cap PO DAILY 12/13/19 02/19/21 (120 mg-180 mg) capsule (Fish Oil) rosuvastatin 20 mg tablet 20 mg PO QPM 12/13/19 02/19/21 Previous Rx's Medication Instructions Recorded losartan 50 mg tablet 50 mg PO DAILY #30 tabs 12/14/19 aspirin 81 mg tablet,delayed 81 mg PO DAILY #30 tabs 05/22/20 release hydrocodone 5 mg-acetaminophen 325 1 tab PO Q4-6H PRN pain #20 tabs 08/04/22 mg tablet ondansetron 4 mg disintegrating 4 mg PO TID-QID PRN nausea and 08/04/22 tablet vomiting #10 tabs Allergies Allergy/AdvReac Type Severity Reaction Status Date / Time lisinopril Allergy Anaphylaxis Verified 02/19/21 08:22 Review of Systems Review of Systems Narrative: GENERAL: Denies chills, fatigue, malaise, fever, sweats. HEENT: Denies sinus pain, ear pain, sore throat, difficulty swallowing, dizzine ss. RESPIRATORY: See HPI CARDIOVASCULAR: Denies chest pain, palpitations, orthopnea, edema, GASTROINTESTINAL: Denies nausea, vomiting, abdominal pain, diarrhea, constipation, melena. : Denies dysuria, frequency, incontinence, hematuria, urinary retention. MUSCULOSKELETAL: See HPI SKIN: Denies rash, skin lesions, or other NEUROLOGIC: Denies weakness, headache, numbness, change in speech, confusion, seizures, incoordination. PSYCHIATRIC: No concerning psychosocial issues. 12 point review of systems is negative except for those stated above Patient History Medical History Angioedema BPH w urinary obs/LUTS Cataract Cataracts, bilateral Elevated PSA Essential hypertension Family history of prostate cancer in father H/O urinary retention HLD (hyperlipidemia) Skin cancer Surgical History Hx of cataract surgery Hx of knee surgery Family History Mother CVA (cerebral vascular accident) Tobacco consumption Father CVA (cerebral vascular accident) Hydrocephalus Hyperlipidemia Hypertension Social History marital status: number of children: 3 household members: spouse pets and animals: Yes leisure activities: exercise Smoking Status: Never smoker alcohol intake: current caffeine: Yes Smoking Status: Never smoker alcohol intake frequency: 0-2 drinks per day Substance Use Type: does not use Exam Narrative Exam Narrative: GENERAL: [77] year old patient appears stated age. Well-developed patient, in obvious distress sitting in wheelchair splinting right-sided ribs, GCS 15 HEAD: Atraumatic. Normocephalic. No hematoma, contusion or evidence of depressed skull fracture EYES: Pupils equal round and reactive. No hyphema Extraocular motions intact. No scleral icterus. No injection or drainage. ENT: Nose without bleeding, purulent drainage. Throat without erythema, tonsillar hypertrophy or exudate. Airway patent. NECK: Trachea midline. Non tender, no step-offs or crepitance CARDIOVASCULAR: Regular rate and rhythm without murmurs, gallops, or rubs. RESPIRATORY: Clear to auscultation. Breath sounds equal bilaterally. No wheezes, rales, or rhonchi. Severe right-sided lateral and posterior rib pain, no subcu emphysema, ecchymosis, or evidence of flail GASTROINTESTINAL: Abdomen soft, non-tender, nondistended. EXTREMITIES: No edema or joint tenderness. BACK: Nontender without deformity or crepitance. No flank tenderness. NEURO: AOx3. SKIN: No rash or erythema of visible areas Initial Vital Signs Initial Vital Signs: Vital Signs Temperature 97.8 F 08/04/22 12:38 Pulse Rate 86 08/04/22 12:38 Respiratory Rate 22 08/04/22 12:38 Blood Pressure 146/77 H 08/04/22 12:38 Pulse Oximetry 98 08/04/22 12:38 Oxygen Delivery Method 08/04/22 12:38 Course Orders Ordered: Discontinued Medications Acetaminophen (Acetaminophen 325 Mg Tablet) 975 mg PO NOW ONE Stop: 08/04/22 13:31 Last Admin: 08/04/22 13:39 Dose: Not Given Documented By: ABRAHAM Hydrocodone Bitart/Acetaminophen (Hydrocodone/Acet 5/325 Tablet) 2 tab PO NOW ONE Stop: 08/04/22 14:11 Last Admin: 08/04/22 14:14 Dose: 2 tab Documented By: LUCY Sodium Chloride (Normal Saline 0.9%) 500 mls @ 1,000 mls/hr IV BOLUS ONE Stop: 08/04/22 14:57 Last Infusion: 08/04/22 15:30 Dose: 0 mls/hr Documented By: Admin: 08/04/22 14:55 Dose: 1,000 mls/hr Documented By: LUCY(2) Lidocaine (Lidocaine Patch 1 Each Adh..Patch) 1 each TOP NOW ONE Stop: 08/04/22 13:31 Last Admin: 08/04/22 13:34 Dose: 1 each Documented By: ABRAHAM Vital Signs Vital signs: Vital Signs - 8 hr 08/04/22 12:38 Temperature 97.8 F Pulse Rate 86 Respiratory Rate 22 Blood Pressure 146/77 H Pulse Oximetry 98 Oxygen Delivery Method Room Air MDM - Fall Lab Data 08/04/22 14:51 08/04/22 14:51 Labs: Lab Results 08/04/22 08/04/22 08/04/22 Range/Units 14:51 14:51 15:40 WBC 14.8 H (4.5-11.0) X10^3/uL RBC 4.30 L (4.5-5.9) X10^6/uL Hgb 12.5 L (13.5-17.5) g/dL Hct 38.2 L (41-53) % MCV 89.0 (80-100) fL MCH 29.1 (26-34) PG MCHC 32.6 (30-36) % RDW 14.6 (11.6-14.8) % Plt Count 200 (150-400) X10^3/uL Neut % (Auto) 84.4 H (50-75) % Lymph % (Auto) 10.2 L (25-40) % Summers % (Auto) 3.7 (3-14) % Eos % (Auto) 1.4 L (2-4) % Baso % (Auto) 0.3 (0-2) % Neut # (Auto) 51855 H (5922-9198) /uL Lymph # (Auto) 1500 (5155-0597) /uL Summers # (Auto) 500 (0-900) /uL Eos # (Auto) 200 (0-450) /uL Baso # (Auto) 0 (0-100) /uL Sodium 142 (137-145) mmol/L Potassium 4.0 (3.4-5.1) mmol/L Chloride 106 (98-107) mmol/L Carbon Dioxide 23 (22-32) mmol/L BUN 23 H (9-20) mg/dL Creatinine 1.02 (0.66-1.25) mg/dL Estimated GFR > 60 (>60) mL/min BUN/Creatinine Ratio 22.5 H (6-22) Glucose 146 H (80-110) mg/dL Calcium 10.2 (8.4-10.2) mg/dL Total Bilirubin 0.8 (0.2-1.3) mg/dL AST 97 H (17-59) IU/L ALT 71 H (<50) IU/L Alkaline Phosphatase 56 (38-126) U/L Total Protein 8.2 (6.3-8.2) g/dL Albumin 4.7 (3.5-5.0) g/dL Globulin 3.5 (1.7-4.1) g/dL Albumin/Globulin Ratio 1.3 (1.0-2.8) Blood Type A Positive Antibody Screen Negative MDM Narrative Medical decision making narrative: CC: 69-year-old male with right-sided chest pain after fall Complicating co-morbidities: Age, hypertension, aspirin Data collected from: Patient Medical records reviewed: Prior ED notes reviewed Differential considered, but not limited to: Traumatic injuries including rib fracture, pneumothorax, pulmonary contusion, hemothorax, intra-abdominal injuries Exam documented above, pertinent findings include: Patient in obvious pain, tender to palpate on right lateral ribs, GCS 15, no head neck or back pain, nonlabored breathing, abdomen soft, no extremity abnormalities Lab Test results independently reviewed as above. Pertinent findings: No significant findings Independently reviewed EKG as above Imaging studies independently reviewed: Chest x-ray without obvious findings, more advanced imaging given severity of pain, multiple rib fractures noted on CT, no pneumothorax or hemothorax, no intra-abdominal bleeding Treatments: Patient felt significant improvement after Vicodin Discussion: 77-year-old male with right-sided rib pain and isolated rib fra ctures, no hypoxemia, pain controlled. I did discuss at length my recommendation for hospitalization for pain control given multiple rib fractures and the potential for underlying lung injury. Patient has significant improvement, no difficulty in breathing other than some pain with deep breath, he is alert and oriented with capacity to make his own decisions and would prefer to go home. He understands return precautions. He and understand diagnosis and plan Disposition: see below, along with detailed discharge instructions that have been reviewed with patient as well as indications for ED re-evaluation and additional outpatient follow up Discharge Plan Departure Patient Disposition: Home Clinical Impression: Ribs, multiple fractures Instructions: DI for Rib Fracture Activity Restrictions/Additional Instructions: *You have been diagnosed with [fall with multiple rib fractures] *What to do: *Please continue to take your regular medications as directed. [ x] New medication prescriptions sent to your pharmacy: [ [facility]] [ ] New medication written as a paper prescription [ ] No new medications given *Please follow up with your primary care provider in 2-3 days, call for an appointment. Let them know you were seen in the Emergency Department and that we ask that you be seen in follow up. We will electronically transmit a record of today's note if your PCP is in our system *Return to Emergency Department if you should have any new, worsening or concerning symptoms, such as [fever greater than 101 F, shaking chills, worsening pain, persistent vomiting or other bothersome symptoms] You have been prescribed a short course of narcotic medications. These are potentially dangerous and addictive medications that should be used carefully. While on these medications you cannot drive or operate heavy machinery. Additionally, you cannot sign legal documents or perform any duties such as this. Many people get constipated on narcotic medications so it would be advisable to discuss stool softeners with the pharmacist when you mushroom picker your prescription. Please understand that we cannot provide further refills of narcotics or co ntrolled substances through the ED and your pain management will need to be through your Primary Care Provider Prescriptions: New hydrocodone-acetaminophen 5-325 mg tablet 1 tab PO Q4-6H PRN (Reason: pain) Qty: 20 0RF ondansetron 4 mg tablet,disintegrating 4 mg PO TID-QID PRN (Reason: nausea and vomiting) Qty: 10 0RF No Action nifedipine 60 mg tablet extended release 24hr 60 mg PO DAILY Label Comments: TAKES IN AM W/ FOOD rosuvastatin 20 mg tablet 20 mg PO QPM Label Comments: TAKES IN AM W/ FOOD omega 0-rlv-kgs-fish oil [Fish Oil] 1,000 mg (120 mg-180 mg) Capsule 1 cap PO DAILY Label Comments: TAKES IN AM W/ FOOD losartan 50 mg tablet 50 mg PO DAILY Qty: 30 0RF Label Comments: TAKES IN AM W/ FOOD aspirin 81 mg Tablet,Delayed Release (Dr/Ec) 81 mg PO DAILY Qty: 30 0RF Referrals: Alyx De Leon, [facility] [Primary Care Provider] - Stand Alone Forms: Patient Portal/API
[2022-08-04] MEDS: HYDROCODONE/ACET 5/325 TABLET 2 TAB PO (14:14)
[2022-08-04] MEDS: SODIUM CHLORIDE 0.9% 500 ML 1000 ML IV (14:55)
--- NOTE | 2022-08-04 15:14 | DI.CT.S_ITS ---
PROCEDURE: CT CHEST ABD PEL W CON INDICATIONS: severe R flank/hip/chest pain after 3-5ft fall TECHNIQUE: After the administration of intravenous contrast, 5 mm thick sections acquired from the lung apices to the symphysis. 2.5 mm thick coronal and sagittal reformats were acquired. Additional 7 mm thick coronal maximum intensity projection (MIP) reformats acquired through the lungs. Optional 10-minute delayed imaging may be performed from the kidneys to the bladder. For radiation dose reduction, the following was used: automated exposure control, adjustment of mA and/or kV according to patient size. COMPARISON: None. FINDINGS: Image quality: Excellent. CHEST: Lungs: No pulmonary contusions or lacerations. Mild left posterolateral lower lobe atelectasis. No acute airspace opacities. No pneumothorax or hemothorax. Central and peripheral airways appear patent and normal in caliber. Mediastinum: No mediastinal hematomas. Heart size is normal. Moderate coronary artery calcification. No pericardial effusion. Thoracic aorta and pulmonary arteries demonstrate normal size and enhancement. Bovine arch anatomy. Normal variant. No mediastinal or hilar adenopathy. Esophagus is normal in caliber. Tiny hiatal hernia. Chest wall: Minimally displaced posterior right 12th rib fracture. Right 11th rib is broken in three places, at the costovertebral junction, displaced posterior fracture, and a mildly displaced posterolateral fracture. Right 10th rib is fractured posteriorly and posterolaterally but nondisplaced. Nondisplaced fractures anterolaterally of right ribs eight and nine. No subcutaneous emphysema. No suspicious chest wall mass or contusion. Thyroid nodule on the left. ABDOMEN: Solid organs: Liver is normal in size and enhancement, without lacerations. Several tiny hypodensities are present too small to accurately characterize. Gallbladder contains a calcified stone near the neck. No pericholecystic inflammation.. Biliary system is non-dilated. No pancreatic trauma. There is a heterogeneous centrally cystic and peripherally solid mass measuring about 6.0 x 9.8 x 6.2 cm arising from the tail of the pancreas extending into the splenic hilum. Its margins are fairly well circumscribed and the splenic artery is draping over it. There is a tiny splenule in the hilum. Splenic artery demonstrates heavy atherosclerosis. Spleen is normal in size and enhancement, without lacerations. No adrenal hematomas. Both kidneys enhance normally, without hydronephrosis or lacerations. Peritoneum and bowel: No free fluid or air. Unenhanced bowel loops demonstrate normal wall thickness and caliber. Nodes and vessels: No retroperitoneal hematoma. Normal caliber vasculature. Moderate abdominal aortic atherosclerotic calcification. No adenopathy. No mesenteric hematoma. Miscellaneous: No ventral hernias. PELVIS: Genitourinary: Moderate prostatomegaly. Intact urinary bladder. Miscellaneous: Fat containing bilateral inguinal hernias. No inguinal or pelvic hematoma. Musculature is normal. Bones: No visible fractures. Moderate degeneration in both hip joints. Partial ankylosis of sacroiliac joints. IMPRESSION: 1. Several posterior and lateral lower right rib fractures. 2. No CT evidence of underlying lung trauma. 3. No evidence of solid organ injury in the abdomen or pelvis. 4. 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 Further workup as an outpatient is recommended. 5. No evidence of hip or vertebral body fracture. 6. Cholelithiasis. Dictated by: Michelle Prater M.D. on 08/04/2022 at 16:27 Approved by: Michelle Prater M.D. on 08/04/2022 at 16:43
[2022-08-04 15:34] LABS: Add Manual Diff / Slide Review NO; Basophils Absolute Auto 0 /uL (0-100); Basophils Percent Auto 0.3 % (0-2); Eosinophils Absolute Auto 200 /uL (0-450); Eosinophils Percent Auto 1.4 % (2-4); Hematocrit 38.2 % (41-53); Hemoglobin 12.5 g/dL (13.5-17.5); Lymphocytes Absolute Auto 1500 /uL (1100-4500); Lymphocytes Percent Auto 10.2 % (25-40); Mean Corpuscular HGB Conc 32.6 % (30-36); Mean Corpuscular Hemoglobin 29.1 PG (26-34); Monocytes Absolute Auto 500 /uL (0-900); Monocytes Percent Auto 3.7 % (3-14); Neutrophils Absolute Auto 12500 /uL (1500-7000); Neutrophils Percent Auto 84.4 % (50-75); Platelet Count 200 X10^3/uL (150-400); Red Cell Distribution Width 14.6 % (11.6-14.8); White Blood Cell Count 14.8 X10^3/uL (4.5-11.0)
[2022-08-04 15:40] LABS: Alanine Aminotransferase 71 IU/L (<50); Albumin 4.7 g/dL (3.5-5.0); Albumin Globulin Ratio 1.3 (1.0-2.8); Alkaline Phosphatase 56 U/L (38-126); Aspartate Aminotransferase 97 IU/L (17-59); BUN Creatinine Ratio 22.5 (6-22); Bilirubin Total 0.8 mg/dL (0.2-1.3); Blood Urea Nitrogen 23 mg/dL (9-20); Calcium 10.2 mg/dL (8.4-10.2); Carbon Dioxide 23 mmol/L (22-32); Chloride 106 mmol/L (98-107); Estimated Glomerular Filt Rate > 60 mL/min (>60); Globulin 3.5 g/dL (1.7-4.1); Glucose 146 mg/dL (80-110); HEMOLYSIS < 15 (0-50); Sodium 142 mmol/L (137-145); Total Protein 8.2 g/dL (6.3-8.2)
[2022-08-04 17:22] VITALS: PULSE 82; RESP 18; O2SAT 98
== END 2022-08-04 17:24 | disposition home or self-care (01) ==
PROVIDERS: Emergency Provider Emergency Medicine; PCP Student in an Organized Health Care Education/Training Program
DX: S22.41XA Multiple fractures of ribs, right side, initial encounter for closed fracture (principal); W10.9XXA Fall (on) (from) unspecified stairs and steps, initial encounter
CPT/HCPCS: 36415; 71101; 71260; 74177; 80053; 85025; 86850; 86900; 86901; 99284; Q9967

== ENCOUNTER 2023-01-14 10:19 | Emergency (ER) | payer OTHER, SELFPAY ==
[2020-07-15 14:46] VITALS: BMI 28.3
[2023-01-14 10:21] VITALS: BP 167/77; PULSE 87; RESP 14; TEMP 36.4; O2SAT 99; BMI 25.8
[2023-01-14 10:27] VITALS: PULSE 79; O2SAT 99
[2023-01-14 10:30] VITALS: BP 138/72; PULSE 72; RESP 17; O2SAT 97
--- NOTE | 2023-01-14 10:36 | DI.CT.S_ITS ---
PROCEDURE: CT HEAD/BRAIN WO CON INDICATIONS: fall with right sided headache TECHNIQUE: Noncontrast 4.5 mm thick angled axial sections acquired from the foramen magnum to the vertex, with coronal and sagittal reformats. For radiation dose reduction, the following was used: automated exposure control, adjustment of mA and/or kV according to patient size. COMPARISON: [facility], CT, CT HEAD/BRAIN WO CON, 05/21/2020, 11:29. FINDINGS: Image quality: Excellent. CSF spaces: Basal cisterns are patent. No extra-axial fluid collections. The ventricles are symmetric in size and shape. Brain: No intracranial bleeds or masses. There is cerebral volume loss for age, with resultant ventricular and sulcal prominence. There are periventricular and deep white matter chronic small vessel ischemic changes. There is intracranial internal carotid artery atherosclerosis. Skull and face: Calvarium and visualized facial bones appear intact, without suspicious lesions. Sinuses: Visualized sinuses and mastoids are clear. IMPRESSION: No acute intracranial process. Dictated by: Garrett Gudino M.D. on 01/14/2023 at 11:15 Approved by: Garrett Gudino M.D. on 01/14/2023 at 11:17
--- NOTE | 2023-01-14 10:36 | DI.CT.S_ITS ---
PROCEDURE: CT CERVICAL SPINE WO CON INDICATIONS: fall TECHNIQUE: Noncontrast 3 mm thick sections acquired from the skull base to the T4 level. Sagittal and coronal reformats were then constructed. For radiation dose reduction, the following was used: automated exposure control, adjustment of mA and/or kV according to patient size. COMPARISON: [facility], CT, CT HEAD/BRAIN WO CON, 01/14/2023, 11:04. FINDINGS: Image quality: Excellent. Bones: No fractures or dislocations. Visualized superior ribs are intact. Mild cervical spondylosis. Soft tissues: Prevertebral soft tissues are normal in thickness. No paravertebral hematomas. No apical pneumothoraces. Left maxillary sinus opacification. This area was not visualized on the CT head. IMPRESSION: 1. No acute cervical fracture or dislocation. 2. Mild cervical spondylosis. 3. Left maxillary sinusitis. Dictated by: Garrett Gudino M.D. on 01/14/2023 at 11:17 Approved by: Garrett Gudino M.D. on 01/14/2023 at 11:20
--- NOTE | 2023-01-14 10:36 | ED.HEATRA ---
HPI - Head Injury General Chief complaint: Head Injury Stated complaint: fall T-3/disoriented/blurry vision Time Seen by Provider: 01/14/23 10:21 Source: patient Mode of arrival: Ambulatory History of Present Illness HPI Narrative: Patient is a 77-year-old male. Not on anticoagulation. A couple days ago he stated that he tripped in his bedroom. He thought that he tripped over a blanket that was the end of the bed. He did fall forward. He hit his head on the corner of a dresser. He did sustain a cut to the back of his head and was bleeding afterwards but that has since stopped. He thought that he did lose consciousness. He states that his hips have been sore since then but has been able to walk. Since the event he has had a right-sided headache, feeling somewhat disoriented. He states that his voice is just not as ?crisp? as what once was. He states he just feels somewhat off. Related Data Home Medications Medication Instructions Recorded Confirmed nifedipine 60 mg tablet,extended 60 mg PO DAILY 12/13/19 02/19/21 release 24 hr omega 8-ntv-frr-fish oil 1,000 mg 1 cap PO DAILY 12/13/19 02/19/21 (120 mg-180 mg) capsule (Fish Oil) rosuvastatin 20 mg tablet 20 mg PO QPM 12/13/19 02/19/21 Previous Rx's Medication Instructions Recorded losartan 50 mg tablet 50 mg PO DAILY #30 tabs 12/14/19 aspirin 81 mg tablet,delayed 81 mg PO DAILY #30 tabs 05/22/20 release hydrocodone 5 mg-acetaminophen 325 1 tab PO Q4-6H PRN pain #20 tabs 08/04/22 mg tablet ondansetron 4 mg disintegrating 4 mg PO TID-QID PRN nausea and 08/04/22 tablet vomiting #10 tabs Allergies Allergy/AdvReac Type Severity Reaction Status Date / Time lisinopril Allergy Anaphylaxis Verified 01/14/23 10:27 Review of Systems Review of Systems ROS Unobtainable: All systems reviewed & are unremarkable except as noted in HPI and below Patient History Medical History Angioedema BPH w urinary obs/LUTS Cataract Cataracts, bilateral Elevated PSA Essential hypertension Family history of prostate cancer in father H/O urinary retention HLD (hyperlipidemia) Skin cancer Surgical History Hx of cataract surgery Hx of knee surgery Family History Mother CVA (cerebral vascular accident) Tobacco consumption Father CVA (cerebral vascular accident) Hydrocephalus Hyperlipidemia Hypertension Social History marital status: number of children: 3 household members: spouse pets and animals: Yes leisure activities: exercise Smoking Status: Never smoker alcohol intake: current caffeine: Yes Smoking Status: Never smoker alcohol intake frequency: holidays/special occasions only Substance Use Type: does not use Exam Initial Vital Signs Initial Vital Signs: Vital Signs Temperature 97.6 F 01/14/23 10:21 Pulse Rate 87 01/14/23 10:21 Respiratory Rate 14 01/14/23 10:21 Blood Pressure 167/77 H 01/14/23 10:21 Pulse Oximetry 99 01/14/23 10:21 Oxygen Delivery Method Room Air 01/14/23 10:21 Const General: cooperative, comfortable and No ill appearing HENMT Head: abrasion (Right occipital region) HENMT 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 Course Orders Ordered: ED Orders 01/14/23 10:36 CT cervical spine wo con Stat CT head/brain wo con Stat Vital Signs Vital signs: Vital Signs - 8 hr 01/14/23 10:21 01/14/23 10:27 01/14/23 10:30 Temperature 97.6 F Pulse Rate 87 79 Respiratory Rate 14 Blood Pressure 167/77 H 138/72 Pulse Oximetry 99 99 Oxygen Delivery Method Room Air 01/14/23 10:30 01/14/23 11:06 01/14/23 11:08 Temperature Pulse Rate 72 68 66 Respiratory Rate 17 18 Blood Pressure Pulse Oximetry 97 98 98 Oxygen Delivery Method Room Air 01/14/23 11:08 Temperature Pulse Rate Respiratory Rate Blood Pressure 138/69 Pulse Oximetry Oxygen Delivery Method MDM - Head Injury Imaging Data CT scan - head: Radiologist's Impression: PROCEDURE:? CT HEAD/BRAIN WO CON ? INDICATIONS:? fall with right sided headache ? TECHNIQUE:? Noncontrast 4.5 mm thick angled axial sections acquired from the foramen magnum to the vertex, with coronal and sagittal reformats.? For radiation dose reduction, the following was used:? automated exposure control, adjustment of mA and/or kV according to patient size.? ? COMPARISON:? [facility], CT, CT HEAD/BRAIN WO CON, 05/21/2020, 11:29. ? FINDINGS:? Image quality:? Excellent.? ? CSF spaces:? Basal cisterns are patent.? No extra-axial fluid collections.? The ventricles are symmetric in size and shape.? ? Brain:? No intracranial bleeds or masses.? There is cerebral volume loss for age, with resultant ventricular and sulcal prominence.? There are periventricular and deep white matter chronic small vessel ischemic changes.? There is intracranial internal carotid artery atherosclerosis.? ? Skull and face:? Calvarium and visualized facial bones appear intact, without suspicious lesions.? ? Sinuses:? Visualized sinuses and mastoids are clear.? ? IMPRESSION:? No acute intracranial process. CT - cervical spine: Radiologist's Impression: PROCEDURE:? CT CERVICAL SPINE WO CON ? INDICATIONS:? fall ? TECHNIQUE:? Noncontrast 3 mm thick sections acquired from the skull base to the T4 level.? Sagittal and coronal reformats were then constructed.? For radiation dose reduction, the following was used:? automated exposure control, adjustment of mA and/or kV according to patient size.? ? COMPARISON:? [facility], CT, CT HEAD/BRAIN WO CON, 01/14/2023, 11:04. ? FINDINGS:? Image quality:? Excellent.? ? Bones:? No fractures or dislocations.? Visualized superior ribs are intact.? Mild cervical spondylosis.? ? Soft tissues:? Prevertebral soft tissues are normal in thickness.? No paravertebral hematomas.? No apical pneumothoraces.? Left maxillary sinus opacification.? This area was not visualized on the CT head.? ? ? IMPRESSION:? ? 1. No acute cervical fracture or dislocation. ? 2. Mild cervical spondylosis. ? 3. Left maxillary sinusitis. MDM Narrative Medical decision making narrative: Low suspicion for CVA. The abrasion on the back of his head knees no specific intervention here in the ER. It is not bleeding. His history and physical exam is consistent with a concussion. Had a discussion with the patient and his regarding this. We discussed specific return precautions. Lab him follow-up with his primary doctor. He expressed understanding and agreement. Discharge Plan Departure Patient Disposition: Home Clinical Impression: Closed head injury, Concussion Instructions: Concussion Activity Restrictions/Additional Instructions: You can continue to take all of your medications as directed. You can eat like normal and sleep like normal. You need to avoid any activities that potentially make your symptoms worse. Contact your primary doctor for a follow-up. Return to the emergency department for new or worsening symptoms. Prescriptions: No Action nifedipine 60 mg tablet extended release 24hr 60 mg PO DAILY Patient Comments: TAKES IN AM W/ FOOD rosuvastatin 20 mg tablet 20 mg PO QPM Patient Comments: TAKES IN AM W/ FOOD omega 7-eai-wqq-fish oil [Fish Oil] 1,000 mg (120 mg-180 mg) Capsule 1 cap PO DAILY Patient Comments: TAKES IN AM W/ FOOD losartan 50 mg tablet 50 mg PO DAILY Qty: 30 0RF Patient Comments: TAKES IN AM W/ FOOD aspirin 81 mg Tablet,Delayed Release (Dr/Ec) 81 mg PO DAILY Qty: 30 0RF hydrocodone-acetaminophen 5-325 mg tablet 1 tab PO Q4-6H PRN (Reason: pain) Qty: 20 0RF ondansetron 4 mg tablet,disintegrating 4 mg PO TID-QID PRN (Reason: nausea and vomiting) Qty: 10 0RF Referrals: Kristen Toro PA-C [Primary Care Provider] - Stand Alone Forms: Patient Portal/API
[2023-01-14 11:06] VITALS: PULSE 68; O2SAT 98
[2023-01-14 11:08] VITALS: BP 138/69; PULSE 66; RESP 18; O2SAT 98
[2023-01-14 11:30] VITALS: BP 140/72; PULSE 64; RESP 16; O2SAT 98
== END 2023-01-14 11:43 | disposition home or self-care (01) ==
PROVIDERS: Emergency Provider Emergency Medicine; PCP Physician Assistant
DX: S06.0X9A Concussion with loss of consciousness of unspecified duration, initial encounter (principal); W01.190A Fall on same level from slipping, tripping and stumbling with subsequent striking against furniture, initial encounter
CPT/HCPCS: 70450; 72125; 99283

== ENCOUNTER 2023-01-25 17:42 | Emergency (ER) | payer OTHER, SELFPAY ==
[2020-07-15 14:46] VITALS: BMI 28.3
[2023-01-25] VITALS (9 sets, daily range): BP systolic 124–151; BP diastolic 68–77; PULSE 87–103; RESP 11–24; TEMP 37.1; O2SAT 96–100; BMI 23.6
--- NOTE | 2023-01-25 18:10 | DI.CT.S_ITS ---
PROCEDURE: CT CERVICAL SPINE WO CON INDICATIONS: fall with head injury TECHNIQUE: Noncontrast 3 mm thick sections acquired from the skull base to the T4 level. Sagittal and coronal reformats were then constructed. For radiation dose reduction, the following was used: automated exposure control, adjustment of mA and/or kV according to patient size. COMPARISON: [facility], CT, CT CERVICAL SPINE WO CON, 01/14/2023, 11:04. FINDINGS: Image quality: Excellent. Bones: No fractures or dislocations. Visualized superior ribs are intact. Disc space narrowing hypertrophic facet joints noted in the lower cervical spine. No evidence of fracture or malalignment. Posterior disc osteophyte complex at C4-5 results in moderate central stenosis. Left maxillary sinus opacification with wall thickening. Soft tissues: Prevertebral soft tissues are normal in thickness. No paravertebral hematomas. No apical pneumothoraces. IMPRESSION: No evidence of fracture or traumatic malalignment. 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 on 01/25/2023 at 17:51
--- NOTE | 2023-01-25 18:10 | DI.CT.S_ITS ---
PROCEDURE: CT HEAD/BRAIN WO CON INDICATIONS: fall with head injury and headache TECHNIQUE: Noncontrast 4.5 mm thick angled axial sections acquired from the foramen magnum to the vertex, with coronal and sagittal reformats. For radiation dose reduction, the following was used: automated exposure control, adjustment of mA and/or kV according to patient size. COMPARISON: [facility], CT, CT HEAD/BRAIN WO CON, 01/14/2023, 11:04. FINDINGS: Image quality: Excellent. CSF spaces: Basal cisterns are patent. No extra-axial fluid collections. Ventricles are normal in size and shape. Brain: Atrophy and multifocal white matter ischemic change. No intracranial hemorrhage or mass effect. Atherosclerotic vascular calcification noted in the cavernous segments of both internal carotid arteries Skull and face: Calvarium and visualized facial bones are intact, without suspicious lesions. Bilateral intraocular lens replacements noted. Right scalp laceration Sinuses: Left maxillary sinus opacification osseous wall thickening reflecting chronic sinusitis. IMPRESSION: Right scalp laceration without underlying skull fracture or intracranial hemorrhage. Atrophy and chronic ischemic change. Approved by: Guillermo Rodriguez M.D. on 01/25/2023 at 17:44
--- NOTE | 2023-01-25 19:25 | ED.GENADULT ---
HPI - General Adult General Chief complaint: Trauma Stated complaint: fall, head injury Time Seen by Provider: 01/25/23 17:58 Source: patient Mode of arrival: Family Vehicle History of Present Illness HPI narrative: Patient is a 77-year-old male who is here for evaluation of injuries that he sustained when he states that he fell while going down a gravel incline. He did hit his head. He also has right hand pain. No neck pain. Some abrasions on his knees but no pelvis or lower extremity discomfort. There was no loss of consciousness. He did have bleeding from injuries that he sustained to the right side of his scalp. Related Data Home Medications Medication Instructions Recorded Confirmed nifedipine 60 mg tablet,extended 60 mg PO DAILY 12/13/19 02/19/21 release 24 hr omega 3-diq-jsv-fish oil 1,000 mg 1 cap PO DAILY 12/13/19 02/19/21 (120 mg-180 mg) capsule (Fish Oil) rosuvastatin 20 mg tablet 20 mg PO QPM 12/13/19 02/19/21 Previous Rx's Medication Instructions Recorded losartan 50 mg tablet 50 mg PO DAILY #30 tabs 12/14/19 aspirin 81 mg tablet,delayed 81 mg PO DAILY #30 tabs 05/22/20 release hydrocodone 5 mg-acetaminophen 325 1 tab PO Q4-6H PRN pain #20 tabs 08/04/22 mg tablet ondansetron 4 mg disintegrating 4 mg PO TID-QID PRN nausea and 08/04/22 tablet vomiting #10 tabs Allergies Allergy/AdvReac Type Severity Reaction Status Date / Time lisinopril Allergy Anaphylaxis Verified 01/14/23 10:27 Review of Systems Review of Systems ROS Unobtainable: All systems reviewed & are unremarkable except as noted in HPI and below Patient History Medical History Angioedema BPH w urinary obs/LUTS Cataract Cataracts, bilateral Elevated PSA Essential hypertension Family history of prostate cancer in father H/O urinary retention HLD (hyperlipidemia) Skin cancer Surgical History Hx of cataract surgery Hx of knee surgery Family History Mother CVA (cerebral vascular accident) Tobacco consumption Father CVA (cerebral vascular accident) Hydrocephalus Hyperlipidemia Hypertension Social History marital status: number of children: 3 household members: spouse pets and animals: Yes leisure activities: exercise Smoking Status: Never smoker alcohol intake: current caffeine: Yes Smoking Status: Never smoker alcohol intake frequency: holidays/special occasions only Substance Use Type: does not use Exam Initial Vital Signs Initial Vital Signs: Vital Signs Temperature 98.8 F 01/25/23 17:49 Pulse Rate 102 H 01/25/23 17:49 Respiratory Rate 20 01/25/23 17:49 Blood Pressure 151/77 H 01/25/23 17:49 Pulse Oximetry 98 01/25/23 17:49 Oxygen Delivery Method Room Air 01/25/23 17:49 HENCO Head: laceration Face and sinus: normal facial exam Mouth: oral mucosae normal Resp Effort & Inspection: normal respiratory effort Cardio Rate: regular rate GI Inspection: normal to inspection and non-distended Skin Other: Patient has 3 separate lacerations to his right scalp. No active bleeding. There clean. Neuro General: patient alert, patient awake, patient oriented x3 and moves all extremities Gait: normal gait Extrem Other: Bilateral lower extremities are unremarkable. He does have tenderness along the 5th metacarpal of his right hand. His right elbow right wrist and right Procedures Laceration Repair Laceration 1: Site: scalp Side (If applicable): right Size (cm): 1 Depth: simple, single layer Local Anesthetic: lidocaine 1% and with epi Amount of anesthesia used (mL): 2 Pre-repair: wound explored and irrigated extensively Skin layer closed with: nylon Skin layer suture size: 5-0 Number of sutures: 2 Technique: simple, interrupted Laceration 2: Site: scalp Side (If applicable): right Size (cm): 2 Description: flap and irregular Depth: simple, single layer Local Anesthetic: lidocaine 1% and with epi Amount of anesthesia used (mL): 2 Pre-repair: wound explored, irrigated extensively and deep structures intact Skin layer closed with: nylon Skin layer suture size: 5-0 Number of sutures: 3 Technique: simple, interrupted Laceration 3: Site: scalp Side (If applicable): right Size (cm): 2 Description: irregular Depth: simple, single layer Local Anesthetic: lidocaine 1% and with epi Amount of anesthesia used (mL): 2 Pre-repair: wound explored Skin layer closed with: nylon Skin layer suture size: 5-0 Number of sutures: 3 Technique: simple, interrupted Orthopedic Splinting/Casting Injury #1: Side: right Upper Extremity Injury Location: hand Upper Extremity Immobilizer: thumb spica Post splinting neuro exam: intact Post splinting vascular exam: intact Placed by: Provider Course Orders Ordered: ED Orders 01/25/23 19:26 XR hand RT min 3V Stat Discontinued Medications Bacitracin (Bacitracin Oint 0.9 Gm Pckt) 1 applic TOP NOW ONE Stop: 01/25/23 20:46 Last Admin: 01/25/23 21:07 Dose: 1 applic Documented By: SAUD Lidocaine/Epinephrine (Lidocaine 2% W/Epi Inj) 20 ml INJ INTRA-OP ONE Stop: 01/25/23 19:27 Last Admin: 01/25/23 20:17 Dose: 20 ml Documented By: SAUD Vital Signs Vital signs: Vital Signs - 8 hr 01/25/23 19:30 01/25/23 20:00 01/25/23 20:30 Pulse Rate 90 88 87 Respiratory Rate 24 13 13 Blood Pressure 124/68 Medical Decision Making Imaging Data CT - cervical spine: Radiologist's Impression: PROCEDURE:? CT CERVICAL SPINE WO CON ? INDICATIONS:? fall with head injury ? TECHNIQUE:? Noncontrast 3 mm thick sections acquired from the skull base to the T4 level.? Sagittal and coronal reformats were then constructed.? For radiation dose reduction, the following was used:? automated exposure control, adjustment of mA and/or kV according to patient size.? ? COMPARISON:? [facility], CT, CT CERVICAL SPINE WO CON, 01/14/2023, 11:04. ? FINDINGS:? Image quality:? Excellent.? ? Bones:? No fractures or dislocations.? Visualized superior ribs are intact.? Disc space narrowing hypertrophic facet joints noted in the lower cervical spine.? No evidence of fracture or malalignment.? Posterior disc osteophyte complex at C4-5 results in moderate central stenosis.? Left maxillary sinus opacification with wall thickening. ? Soft tissues:? Prevertebral soft tissues are normal in thickness.? No paravertebral hematomas.? No apical pneumothoraces.? ? ? IMPRESSION:? ? No evidence of fracture or traumatic malalignment.? ? 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 Chronic left maxillary sinusitis CT scan - head: Radiologist's Impression: PROCEDURE:? CT HEAD/BRAIN WO CON ? INDICATIONS:? fall with head injury and headache ? TECHNIQUE:? Noncontrast 4.5 mm thick angled axial sections acquired from the foramen magnum to the vertex, with coronal and sagittal reformats.? For radiation dose reduction, the following was used:? automated exposure control, adjustment of mA and/or kV according to patient size.? ? COMPARISON:? [facility], CT, CT HEAD/BRAIN WO CON, 01/14/2023, 11:04. ? FINDINGS:? Image quality:? Excellent.? ? CSF spaces:? Basal cisterns are patent.? No extra-axial fluid collections.? Ventricles are normal in size and shape.? ? Brain:? Atrophy and multifocal white matter ischemic change.? No intracranial hemorrhage or mass effect.? Atherosclerotic vascular calcification noted in the cavernous segments of both internal carotid arteries ? Skull and face:? Calvarium and visualized facial bones are intact, without suspicious lesions.? Bilateral intraocular lens replacements noted.? Right scalp laceration ? Sinuses:? Left maxillary sinus opacification osseous wall thickening reflecting chronic sinusitis. ? IMPRESSION:? ? Right scalp laceration without underlying skull fracture or intracranial hemorrhage.? ? Atrophy and chronic ischemic change. Extremity x-ray #1: Radiologist's Impression: PROCEDURE:? XR HAND RT MIN 3V ? INDICATIONS:? 5th MC pain after fall ? TECHNIQUE:? 3 views of the hand(s) acquired.? ? COMPARISON:? None. ? FINDINGS:? ? Bones:? Oblique fracture of the 5th metacarpal with dorsal angulation.? No fractures or dislocations.? Carpal bones are normally aligned.? No suspicious bony lesions.? ? Soft tissues:? No suspicious soft tissue calcifications.? ? ? IMPRESSION:? Oblique fracture of the 5th metacarpal. MDM Narrative Medical decision making narrative: Clearly a mechanical fall his description of the event. His scalp lacerations were closed as described above. He does not fracture his right 5th metacarpal that appeared to happened during the falls well. He is placed in a splint. He was given care instructions and return precautions and follow-up instructions. He expressed understanding and agreement. Discharge Plan Departure Patient Disposition: Home Clinical Impression: Fracture of hand, Laceration of scalp Instructions: DI for Laceration Repair, DI for a Hand Fracture, How to Take Care of Your Splint Activity Restrictions/Additional Instructions: The stitches do need to be removed in 7-10 days. You can go to the walk-in clinic or your primary doctor for this. Until then you can shower like normal. The splint on your right hand does need to be treated like a cast. You need to keep it on and keep it clean and keep it dry. Contact the orthopedic doctors with the number provided below for a follow-up. Return to the emergency department for new symptoms. Prescriptions: No Action nifedipine 60 mg tablet extended release 24hr 60 mg PO DAILY Patient Comments: TAKES IN AM W/ FOOD rosuvastatin 20 mg tablet 20 mg PO QPM Patient Comments: TAKES IN AM W/ FOOD omega 1-ekt-sbq-fish oil [Fish Oil] 1,000 mg (120 mg-180 mg) Capsule 1 cap PO DAILY Patient Comments: TAKES IN AM W/ FOOD losartan 50 mg tablet 50 mg PO DAILY Qty: 30 0RF Patient Comments: TAKES IN AM W/ FOOD aspirin 81 mg Tablet,Delayed Release (Dr/Ec) 81 mg PO DAILY Qty: 30 0RF hydrocodone-acetaminophen 5-325 mg tablet 1 tab PO Q4-6H PRN (Reason: pain) Qty: 20 0RF ondansetron 4 mg tablet,disintegrating 4 mg PO TID-QID PRN (Reason: nausea and vomiting) Qty: 10 0RF Referrals: Sb Stewart MD [Physician] - Kristen Toro PA-C [Primary Care Provider] - Stand Alone Forms: Patient Portal/API
--- NOTE | 2023-01-25 19:26 | DI.RAD.S_ITS ---
PROCEDURE: XR HAND RT MIN 3V INDICATIONS: 5th MC pain after fall TECHNIQUE: 3 views of the hand(s) acquired. COMPARISON: None. FINDINGS: Bones: Oblique fracture of the 5th metacarpal with dorsal angulation. No fractures or dislocations. Carpal bones are normally aligned. No suspicious bony lesions. Soft tissues: No suspicious soft tissue calcifications. IMPRESSION: Oblique fracture of the 5th metacarpal. Dictated by: Shahzad Bowman M.D. on 01/25/2023 at 20:01 Approved by: Shahzad Bowman M.D. on 01/25/2023 at 20:01
[2023-01-25] MEDS: LIDOCAINE 2% W/EPI INJ 20 ML INJ (20:17)
[2023-01-25] MEDS: BACITRACIN OINT 0.9 GM PCKT 1 APPLIC TOP (21:07)
== END 2023-01-25 21:09 | disposition home or self-care (01) ==
PROVIDERS: Emergency Provider Emergency Medicine; PCP Physician Assistant
DX: S62.306A Unspecified fracture of fifth metacarpal bone, right hand, initial encounter for closed fracture (principal); S01.01XA Laceration without foreign body of scalp, initial encounter; S80.212A Abrasion, left knee, initial encounter; S80.211A Abrasion, right knee, initial encounter; W18.30XA Fall on same level, unspecified, initial encounter
CPT/HCPCS: 70450; 72125; 73130; 99284

== ENCOUNTER 2023-04-20 09:25 | Emergency (ER) | payer MEDICARE, SELFPAY ==
[2020-07-15 14:46] VITALS: BMI 28.3
[2023-04-20 09:25] VITALS: BP 152/83; PULSE 74; RESP 18; TEMP 36.4; O2SAT 99; BMI 22.8
[2023-04-20 09:29] VITALS: BP 152/83
[2023-04-20 09:30] VITALS: BP 138/74; PULSE 80; O2SAT 99
--- NOTE | 2023-04-20 09:53 | ED_ITS ---
HPI - General Adult General Chief complaint: Trauma Stated complaint: Fall Time Seen by Provider: 04/20/23 09:34 Source: patient Mode of arrival: Ambulatory Limitations: no limitations History of Present Illness HPI narrative: 69-year-old male. Not on anticoagulation who is here for evaluation of a fall. He states he was leaving physical therapy when he tripped over a hole in the ground. He fell forward hitting the right side of his face. No loss of consciousness. He did break his glasses. No vision changes. No neck pain. No chest pain. No extremity injuries. No headache. Related Data Home Medications Medication Instructions Recorded Confirmed nifedipine 60 mg tablet,extended 60 mg PO DAILY 12/13/19 02/19/21 release 24 hr omega 5-aqx-hpi-fish oil 1,000 mg 1 cap PO DAILY 12/13/19 02/19/21 (120 mg-180 mg) capsule (Fish Oil) rosuvastatin 20 mg tablet 20 mg PO QPM 12/13/19 02/19/21 Previous Rx's Medication Instructions Recorded losartan 50 mg tablet 50 mg PO DAILY #30 tabs 12/14/19 aspirin 81 mg tablet,delayed 81 mg PO DAILY #30 tabs 05/22/20 release hydrocodone 5 mg-acetaminophen 325 1 tab PO Q4-6H PRN pain #20 tabs 08/04/22 mg tablet ondansetron 4 mg disintegrating 4 mg PO TID-QID PRN nausea and 08/04/22 tablet vomiting #10 tabs Allergies Allergy/AdvReac Type Severity Reaction Status Date / Time lisinopril Allergy Anaphylaxis Verified 01/14/23 10:27 Review of Systems Constitutional Constitutional: Reports system reviewed and no additional complaints, except as documented Eyes Eyes: Reports system reviewed and no additional complaints, except as documented ENT Ears, Nose, Mouth, and Throat: Reports system reviewed and no additional comp laints, except as documented Musculoskeletal Musculoskeletal: Reports system reviewed and no additional complaints, except as documented Integumentary/Breasts Skin/Breast: Reports system reviewed and no additional complaints, except as documented Neurologic Neurologic: Reports system reviewed and no additional complaints, except as documented Hematologic/Lymphatic On Anticoagulants: No Patient History Medical History Family history of prostate cancer in father Elevated PSA BPH w urinary obs/LUTS Cataract Skin cancer HLD (hyperlipidemia) H/O urinary retention Essential hypertension Cataracts, bilateral Angioedema Surgical History Hx of cataract surgery Hx of knee surgery Family History Mother CVA (cerebral vascular accident) Tobacco consumption Father CVA (cerebral vascular accident) Hydrocephalus Hyperlipidemia Hypertension Social History marital status: number of children: 3 household members: spouse pets and animals: Yes leisure activities: exercise Smoking Status: Never smoker alcohol intake: current caffeine: Yes Smoking Status: Never smoker alcohol intake frequency: holidays/special occasions only Substance Use Type: does not use Exam Const General: cooperative, comfortable and No ill appearing HENMT Nose: external nose normal Face and sinus: abrasion (Over right cheek) and laceration (Right side of eye) Back/Spine/Pelvis Cervical Spine: No cervical spinal tenderness Skin Other: 0.5 cm laceration just lateral to the right eye. Abrasion over the right zygomatic arch. Neuro General: patient alert, patient awake and patient oriented x3 Extrem General: capillary refill normal Procedures Laceration Repair Laceration 1: Site: face Side (If applicable): right Size (cm): 0.5 Description: linear Depth: simple, single layer Skin layer closed with: other Skin layer suture size: 5-0 Number of sutures: 1 Scores GCS Kamini coma scale eye opening: Spontaneous Kamini coma scale verbal response: Orientated Kamini coma scale motor response: Obey commands Barnhart coma scale total score: 15 Nexus Score for C-Spine Focal Neurologic deficit present: No Midline spinal tenderness present: No Altered level of conciousness present: No Intoxication present: No Distracting Injury Present: No Nexus Criteria for C-spine: 0 Course Orders Ordered: ED Orders 04/20/23 09:35 EKG-12 Lead Stat Discontinued Medications Bacitracin (Bacitracin Oint 0.9 Gm Pckt) 1 applic TOP NOW ONE Stop: 04/20/23 09:54 Medical Decision Making MDM Narrative Medical decision making narrative: Patient declined an EKG. This was clearly a mechanical fall. No loss of consciousness. Not on blood thinners. No neck pain. No change in vision. He is blind in his left eye. The small laceration was closed the right side of his eye. Will discharge patient home with return precautions. Discharge Plan Departure Patient Disposition: Home Clinical Impression: Laceration of face, Abrasion of face, Fall Instructions: DI for Abrasion Activity Restrictions/Additional Instructions: You can put ice over the right side of your face as I would expect you to have some swelling over the next couple days. The stitch that was placed today is absorbable and should come out on its own. Continue to take all of your medications as directed. Return to the emergency department for new or worsening symptoms. Prescriptions: No Action nifedipine 60 mg tablet extended release 24hr 60 mg PO DAILY Patient Comments: TAKES IN AM W/ FOOD rosuvastatin 20 mg tablet 20 mg PO QPM Patient Comments: TAKES IN AM W/ FOOD omega 1-zpn-oqp-fish oil [Fish Oil] 1,000 mg (120 mg-180 mg) Capsule 1 cap PO DAILY Patient Comments: TAKES IN AM W/ FOOD losartan 50 mg tablet 50 mg PO DAILY Qty: 30 0RF Patient Comments: TAKES IN AM W/ FOOD aspirin 81 mg Tablet,Delayed Release (Dr/Ec) 81 mg PO DAILY Qty: 30 0RF hydrocodone-acetaminophen 5-325 mg tablet 1 tab PO Q4-6H PRN (Reason: pain) Qty: 20 0RF ondansetron 4 mg tablet,disintegrating 4 mg PO TID-QID PRN (Reason: nausea and vomiting) Qty: 10 0RF Referrals: Kristen Toro PA-C [Primary Care Provider] - Stand Alone Forms: Patient Portal/API
[2023-04-20 10:00] VITALS: BP 133/69; PULSE 75; RESP 19; O2SAT 99
--- NOTE | 2023-04-20 10:04 | PC.NURSE ---
refused ekg. dr. henderson aware.
[2023-04-20] MEDS: BACITRACIN OINT 0.9 GM PCKT 1 APPLIC TOP (10:17)
== END 2023-04-20 10:45 | disposition home or self-care (01) ==
PROVIDERS: Emergency Provider Emergency Medicine; PCP Physician Assistant
DX: S01.111A Laceration without foreign body of right eyelid and periocular area, initial encounter (principal); W01.0XXA Fall on same level from slipping, tripping and stumbling without subsequent striking against object, initial encounter; Y93.01 Activity, walking, marching and hiking
CPT/HCPCS: 12011; 93005; 99283; 99284

== ENCOUNTER → 2024-04-10 10:13 | Outpatient (CLI) | payer MEDICARE, SELFPAY ==
[2020-07-15 14:46] VITALS: BMI 28.3
--- NOTE | 2024-04-10 10:14 | DI.RAD.S_ITS ---
PROCEDURE: XR FOOT LT MIN 3V INDICATIONS: dropped garbage can on great toe TECHNIQUE: 3 views of the foot were acquired. COMPARISON: None. FINDINGS: Bones: No fractures or dislocations. Small plantar calcaneal spur. No suspicious bony lesions. Soft tissues: No tibiotalar joint effusion. Achilles tendon appears normal. IMPRESSION: No acute bony abnormality. Dictated by: Michele Nguyễn M.D. on 04/10/2024 at 14:37 Approved by: Michele Nguyễn M.D. on 04/10/2024 at 14:39
== END ==
PROVIDERS: PCP Physician Assistant; Referring Provider Physician Assistant; Visit Provider Physician Assistant
DX: S99.922A Unspecified injury of left foot, initial encounter (principal); W20.8XXA Other cause of strike by thrown, projected or falling object, initial encounter
CPT/HCPCS: 73630

== ENCOUNTER → 2024-07-03 09:27 | Outpatient (CLI) | payer MEDICARE, SELFPAY ==
[2020-07-15 14:46] VITALS: BMI 28.3
--- NOTE | 2024-07-03 09:56 | EKG_ITS ---
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
[2024-07-03 10:07] LABS: Hematocrit 38.5 % (41-53); Hemoglobin 12.9 g/dL (13.5-17.5); Mean Corpuscular HGB Conc 33.5 % (30-36); Mean Corpuscular Hemoglobin 29.2 PG (26-34); Mean Corpuscular Volume 87.2 fL (80-100); Platelet Count 238 X10^3/uL (150-400); Red Blood Cell Count 4.42 X10^6/uL (4.5-5.9); Red Cell Distribution Width 14.2 % (11.6-14.8)
[2024-07-03 10:30] LABS: Alanine Aminotransferase 26 IU/L (<50); Albumin 4.4 g/dL (3.5-5.0); Albumin Globulin Ratio 1.6 (1.0-2.8); Alkaline Phosphatase 58 U/L (38-126); Aspartate Aminotransferase 34 IU/L (17-59); BUN Creatinine Ratio 21.2 (6-22); Bilirubin Total 0.9 mg/dL (0.2-1.3); Blood Urea Nitrogen 24 mg/dL (9-20); Calcium 10.4 mg/dL (8.4-10.2); Carbon Dioxide 24 mmol/L (22-32); Chloride 109 mmol/L (98-107); Cholesterol 305 mg/dL (140-199); Estimated Glomerular Filt Rate > 60 mL/min (>60); Globulin 2.8 g/dL (1.7-4.1); Glucose 116 mg/dL (80-110); HDL Cholesterol 54 mg/dL (40-60); HEMOLYSIS < 15 (0-50); LDL Cholesterol Calculated 223 mg/dL (<100); Potassium 3.9 mmol/L (3.4-5.1); Sodium 141 mmol/L (137-145); Total Protein 7.2 g/dL (6.3-8.2); Triglycerides 142 mg/dL (35-150)
[2024-07-03 11:00] LABS: TSH w/ Reflex to FT4 2.36 uIU/mL (0.47-4.68)
[2024-07-03 11:04] LABS: Hemoglobin A1C% w Est Avg Glu 5.3 % (4.0-6.0)
[2024-07-03 15:03] LABS: Microalbumin Urine Random 35.5 mg/dL (0-1.6)
== END ==
PROVIDERS: PCP Family Medicine; Referring Provider Family Medicine; Visit Provider Family Medicine
DX: I10 Essential (primary) hypertension (principal); R73.03 Prediabetes; I49.9 Cardiac arrhythmia, unspecified; E78.5 Hyperlipidemia, unspecified
CPT/HCPCS: 36415; 80053; 80061; 82043; 82570; 83036; 84443; 85027; 93005

== ENCOUNTER → 2024-07-23 09:08 | Outpatient (CLI) | payer MEDICARE, SELFPAY ==
[2020-07-15 14:46] VITALS: BMI 28.3
--- NOTE | 2024-07-23 09:09 | DI.ECHO.S_ITS ---
[facility] : : [address] : : [place] : : [address] : : Phone: [phone] Echocardiogram Report + + :Name: JERZY MORALES Study Date: 07/23/2024 Height: 68 in : :[facility] ReadingLocation: Weight: 162 lb : : Gender: Male BSA: 1.9 m2 : :: 1945 Age: 79 yrs BP: 115/72 mmHg: :Reason For Study: ATRIAL FIBRILLATION, HYPERTENSION : :Ordering Physician: SERGIO, : :RICK Pineda Performed By: Rick Owens : :Referring: RICK HILL : + + Interpretation Summary Mild concentric left ventricular hypertrophy with ejection fraction 60-65%. Proximal septal thickening is noted. Diastolic parameters suggest a relaxation abnormality of the left ventricle, consistent with probable normal filling pressures. The aortic valve is mildly calcified. The mitral valve leaflets are mildly calcified. The ascending aorta is at the upper limits of normal in size. Procedure: A two-dimensional transthoracic echocardiogram with color flow and Doppler was performed. The study quality was technically good. The patient was in normal sinus rhythm during the exam. Left Ventricle: The left ventricle is normal in size. There is mild concentric left ventricular hypertrophy. Proximal septal thickening is noted. There is no ventricular septal defect visualized. The ejection fraction is estimated to be 60-65%. Cannot rule out hypokinesis along the inferolateral wall. Diastolic parameters suggest a relaxation abnormality of the left ventricle, consistent with probable normal filling pressures. Right Ventricle: The right ventricle is normal in size and function. Atria: The left atrial size is normal. Right atrial size is normal. There is no Doppler evidence for an interatrial shunt. Mitral Valve: The mitral valve leaflets are mildly calcified. The mitral valve leaflets appear to open well. There is no mitral regurgitation noted. Aortic Valve: The aortic valve is trileaflet. The aortic valve is mildly calcified. No aortic regurgitation is present. Tricuspid Valve: The tricuspid valve leaflets are thin and pliable. No tricuspid regurgitation. Pulmonic Valve: The pulmonic valve leaflets are thin and pliable; valve motion is normal. There is trace pulmonic regurgitation. Great Vessels: The aortic root is normal size. The ascending aorta is at the upper limits of normal in size. The pulmonary artery is normal size. The inferior vena cava was not visualized. Pericardium/ Pleura There is no pericardial effusion. MMode/2D Measurements & Calculations LVIDd: 3.5 cm LVOT diam: 2.2 cm LVIDs: 2.0 cm Ao root diam: 3.6 cm FS: 42.4 % asc Aorta Diam: 3.7 cm EPSS: 0.63 cm IVSd: 1.3 cm LVPWd: 1.4 cm LV ny. diameter/BSA (cm/m^2): 1.9 LV sys. diameter/BSA (cm/m^2): 1.1 LA A2 area: 22.7 cm2 RA long axis: 5.6 cm LA A4 area: 15.4 cm2 RA area: 11.4 cm2 LA length (vol): 4.9 cm RA vol: 19.5 ml LA vol: 61.0 ml RA : 10.4 ml/m2 LA vol index: 32.7 ml/m2 RVD1 (basal): 3.4 cm RVD2 (mid): 3.0 cm TAPSE: 2.6 cm Doppler Measurements & Calculations Ao V2 max: 142.2 cm/sec LVOT Max Gareth: 111.3 cm/sec Ao V2 mean: 92.0 cm/sec LV V1 max P.0 mmHg Ao max P.1 mmHg LV V1 VTI: 21.3 cm Ao mean P.9 mmHg IVANNA(I,D): 2.9 cm2 Ao V2 VTI: 27.3 cm IVANNA(V,D): 2.9 cm2 sev ratio: 0.78 IVANNA indexed to BSA (cm^2/m^2): 1.5 MV E max gareth: 62.9 cm/sec PA V2 max: 83.8 cm/sec MV A max gareth: 104.7 cm/sec PA V2 mean: 58.7 cm/sec MV E/A: 0.60 PA mean P.5 mmHg Med Peak E' Gareth: 3.4 cm/sec PA pr(Accel): 10.5 mmHg E/E' med: 18.2 Lat Peak E' Gareth: 5.1 cm/sec E/E' lat: 12.4 E/e' average: 15.3 MV dec time: 0.13 sec SV(LVOT): 79.0 ml Electronically signed by: Feliciano Pascual on Reading Physician:07/23/2024 10:42 AM
== END ==
PROVIDERS: PCP Family Medicine; Referring Provider Family Medicine; Visit Provider Family Medicine
DX: I49.9 Cardiac arrhythmia, unspecified (principal); I10 Essential (primary) hypertension
CPT/HCPCS: 93306

== ENCOUNTER → 2025-01-09 07:21 | Outpatient (CLI) | payer MEDICARE, SELFPAY ==
[2020-07-15 14:46] VITALS: BMI 28.3
[2025-01-09 07:51] LABS: Add Manual Diff / Slide Review NO; Hematocrit 34.0 % (41-53); Hemoglobin 11.6 g/dL (13.5-17.5); Lymphocytes Absolute Auto 2300 /uL (1100-4500); Mean Corpuscular HGB Conc 34.1 % (30-36); Mean Corpuscular Hemoglobin 29.8 PG (26-34); Mean Corpuscular Volume 87.3 fL (80-100); Platelet Count 190 X10^3/uL (150-400)
[2025-01-09 08:08] LABS: Alanine Aminotransferase 26 IU/L (<50); Albumin 4.1 g/dL (3.5-5.0); Albumin Globulin Ratio 1.5 (1.0-2.8); Alkaline Phosphatase 51 U/L (38-126); Blood Urea Nitrogen 28 mg/dL (9-20); Calcium 9.8 mg/dL (8.4-10.2); Carbon Dioxide 20 mmol/L (22-32); Chloride 111 mmol/L (98-107); Estimated Glomerular Filt Rate > 60 mL/min (>60); Globulin 2.7 g/dL (1.7-4.1); Glucose 110 mg/dL (70-99); HEMOLYSIS < 15 (0-50); Potassium 4.2 mmol/L (3.4-5.1); Sodium 139 mmol/L (137-145); Total Protein 6.8 g/dL (6.3-8.2)
[2025-01-09 08:15] LABS: Reticulocyte Count, Percent 0.7 % (0.9-2.6)
[2025-01-09 09:04] LABS: Vitamin B12 Reflex MMA if <400 > 1000 pg/mL (239-931)
[2025-01-09 09:21] LABS: Folate 5.7 ng/mL (2.76-20.0)
[2025-01-09 09:45] LABS: Microalbumi Creatinin Ratio Ur 187.0 ug/mg CR (<30)
== END ==
PROVIDERS: PCP Family Medicine; Referring Provider Family Medicine; Visit Provider Family Medicine
DX: D64.9 Anemia, unspecified (principal); I10 Essential (primary) hypertension
CPT/HCPCS: 36415; 80053; 82043; 82570; 82607; 82746; 85025; 85045

== ENCOUNTER → 2025-01-11 13:19 | Outpatient (CLI) | payer MEDICARE, SELFPAY ==
[2020-07-15 14:46] VITALS: BMI 28.3
[2025-01-11 13:40] LABS: HEMOLYSIS 28 (0-50); Iron 54 ug/dL (49-181)
[2025-01-11 13:51] LABS: Percent Iron Saturation 24 % (20-50); Total Iron Binding Capacity 229 ug/dL (261-462); Transferrin 185 mg/dL (206-381)
[2025-01-11 14:16] LABS: Ferritin 153 ng/mL (18-464)
== END ==
PROVIDERS: PCP Family Medicine; Visit Provider Family Medicine
DX: D64.9 Anemia, unspecified (principal)
CPT/HCPCS: 82728; 83540; 83550

== ENCOUNTER → 2025-04-24 09:33 | Outpatient (CLI) | payer MEDICARE, SELFPAY ==
[2020-07-15 14:46] VITALS: BMI 28.3
--- NOTE | 2025-04-24 10:30 | EKG_ITS ---
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
[2025-04-24 10:33] LABS: Hematocrit 40.5 % (41-53); Hemoglobin 13.5 g/dL (13.5-17.5); Mean Corpuscular HGB Conc 33.2 % (30-36); Mean Corpuscular Hemoglobin 28.8 PG (26-34); Mean Corpuscular Volume 86.5 fL (80-100); Platelet Count 193 X10^3/uL (150-400)
[2025-04-24 10:51] LABS: Blood Urea Nitrogen 18 mg/dL (9-20); Calcium 10.4 mg/dL (8.4-10.2); Carbon Dioxide 24 mmol/L (22-32); Chloride 108 mmol/L (98-107); Estimated Glomerular Filt Rate > 60 mL/min (>60); Glucose 164 mg/dL (70-99); HEMOLYSIS < 15 (0-50); Potassium 4.0 mmol/L (3.4-5.1); Sodium 141 mmol/L (137-145)
== END ==
PROVIDERS: PCP Family Medicine; Referring Provider Family Medicine; Visit Provider Family Medicine
DX: Z01.818 Encounter for other preprocedural examination (principal); I10 Essential (primary) hypertension
CPT/HCPCS: 36415; 80048; 85027; 93005

== ENCOUNTER → 2025-05-15 16:25 | Outpatient (CLI) | payer MEDICARE, SELFPAY ==
[2020-07-15 14:46] VITALS: BMI 28.3
--- NOTE | 2025-05-15 16:26 | DI.RAD.S_ITS ---
PROCEDURE: XR FINGER RT MIN 2V INDICATIONS: Ground level fall, pointer finger injury TECHNIQUE: PA hand, 2 views of the index finger acquired. COMPARISON: None. FINDINGS: Bones: Minimally displaced fracture of the 2nd distal phalangeal shaft. No definite intra-articular extension is seen. No suspicious bony lesions. Mild deformity of the 5th metacarpal neck likely related to remote prior trauma. Soft tissues: Soft tissue edema is seen in the index finger. IMPRESSION: Minimally displaced fracture of the 2nd distal phalangeal shaft. Approved by: Edwar Barker M.D. on 05/15/2025 at 16:51
== END ==
LOC: RAD 16:26
PROVIDERS: PCP Family Medicine; Referring Provider Nurse Practitioner Family; Visit Provider Nurse Practitioner Family
DX: S62.660A Nondisplaced fracture of distal phalanx of right index finger, initial encounter for closed fracture (principal); S60.00XA Contusion of unspecified finger without damage to nail, initial encounter; W18.30XA Fall on same level, unspecified, initial encounter
CPT/HCPCS: 73140

== ENCOUNTER 2025-05-16 10:43 | Observation (INO) | payer MEDICARE, SELFPAY ==
[2020-07-15 14:46] VITALS: BMI 28.3
[2025-05-16] VITALS (9 sets, daily range): BP systolic 146–208; BP diastolic 78–93; PULSE 73–107; RESP 14–20; TEMP 36.7–36.9; O2SAT 96–100; BMI 24.5; BMI 22.1
--- NOTE | 2025-05-16 10:47 | DI.RAD.S_ITS ---
PROCEDURE: XR CHEST 1V INDICATIONS: Trauma TECHNIQUE: One view of the chest was acquired. COMPARISON: None. FINDINGS: Surgical changes and devices: None. Lungs and pleura: Lungs are clear. No pleural effusions or pneumothorax. Mediastinum: Mediastinal contours appear normal. Heart size is normal. Bones and chest wall: No suspicious bony lesions. Overlying soft tissues appear unremarkable. IMPRESSION: No acute cardiopulmonary abnormality is seen. Approved by: Edwar Barker M.D. on 05/16/2025 at 11:25
--- NOTE | 2025-05-16 10:47 | DI.RAD.S_ITS ---
PROCEDURE: XR PELVIS 1-2V INDICATIONS: Trauma TECHNIQUE: AP view of the pelvis acquired. COMPARISON: [facility], CR, XR HIP W PEL LT 2V, 02/13/2025, 11:40. FINDINGS: Bones: No acute fractures or dislocations. No suspicious bony lesions. Degenerative changes are seen in the hips and spine. Soft tissues: Visualized bowel gas pattern is normal. No suspicious soft tissue calcifications. IMPRESSION: No acute osseous abnormality. If symptoms persist or if there is continued clinical concern, cross-sectional imaging such as MRI or CT may be helpful for further evaluation. Approved by: Edwar Barker M.D. on 05/16/2025 at 11:28
--- NOTE | 2025-05-16 10:47 | EKG_ITS ---
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
--- NOTE | 2025-05-16 10:47 | DI.CT.S_ITS ---
PROCEDURE: CT HEAD/BRAIN WO CON INDICATIONS: Trauma TECHNIQUE: Noncontrast 4.5 mm thick angled axial sections acquired from the foramen magnum to the vertex, with coronal and sagittal reformats. For radiation dose reduction, the following was used: automated exposure control, adjustment of mA and/or kV according to patient size. COMPARISON: [facility], CT, CT HEAD/BRAIN WO CON, 01/25/2023, 18:21. [facility], CT, CT HEAD/BRAIN WO CON, 01/14/2023, 11:04. FINDINGS: Image quality: Diagnostic. CSF spaces: Basal cisterns are patent. No extra-axial fluid collections. The ventricles are symmetric in size and shape. Brain: No acute intracranial hemorrhage or mass effect. 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 There is moderate cerebral volume loss, with resultant ventricular and sulcal prominence. There are moderate periventricular and deep white matter chronic small vessel ischemic changes. There is intracranial internal carotid artery atherosclerosis. Skull and face: Calvarium and visualized facial bones appear intact, without suspicious lesions. Sinuses: Complete opacification of the left maxillary sinus, as before. The remaining visualized paranasal sinuses and the mastoid air cells are clear. IMPRESSION: No acute intracranial pathology. Approved by: Edwar Barker M.D. on 05/16/2025 at 11:40
[2025-05-16 11:07] LABS: Add Manual Diff / Slide Review NO; Hematocrit 39.1 % (41-53); Hemoglobin 13.1 g/dL (13.5-17.5); Lymphocytes Absolute Auto 1200 /uL (1100-4500); Mean Corpuscular HGB Conc 33.5 % (30-36); Mean Corpuscular Hemoglobin 28.6 PG (26-34); Mean Corpuscular Volume 85.4 fL (80-100); Platelet Count 171 X10^3/uL (150-400)
[2025-05-16 11:13] LABS: INR 1.0 (0.9-1.3); Prothrombin Time 11.0 SECONDS (9.4-12.5)
[2025-05-16 11:15] LABS: PTT Partial Thromboplastin Tim 29 SECONDS (25.1-36.5)
[2025-05-16 11:17] LABS: Lactate (Lactic Acid) 1.8 mmol/L (0.7-2.1)
[2025-05-16 11:18] LABS: Alanine Aminotransferase 24 IU/L (<50); Albumin 4.5 g/dL (3.5-5.0); Albumin Globulin Ratio 1.4 (1.0-2.8); Alkaline Phosphatase 54 U/L (38-126); Blood Urea Nitrogen 16 mg/dL (9-20); Calcium 9.9 mg/dL (8.4-10.2); Carbon Dioxide 20 mmol/L (22-32); Chloride 110 mmol/L (98-107); Estimated Glomerular Filt Rate > 60 mL/min (>60); Ethanol (ETOH) < 10 mg/dL (<10); Globulin 3.2 g/dL (1.7-4.1); Glucose 155 mg/dL (70-99); Lipase 53 U/L (23-300); Potassium 4.1 mmol/L (3.4-5.1); Sodium 140 mmol/L (137-145); Total Protein 7.7 g/dL (6.3-8.2)
[2025-05-16 11:19] LABS: HEMOLYSIS 81 (0-50)
[2025-05-16 12:03] LABS: UR Morphine/Opiate cutoff 300 Negative (Negative); Ur Specific Gravity Normal (Normal); Urine MDMA Negative (Negative); Urine Methamphetamines Negative (Negative); Urine Tetrahydrocannabinol Negative (Negative); Urine Tricyclic Antidepressant Negative (Negative)
[2025-05-16 12:05] LABS: Culture Indicated Urine Cult Not Indicated
--- NOTE | 2025-05-16 17:46 | P.HP_ITS ---
History of Present Illness History of Present Illness Date Patient Seen: 05/16/25 Chief complaint: Fall Narrative: 80-year-old male with HTN, HLD, prediabetes, BPH, left eye blindness. Presented to [facility] yesterday with concerns of injuries from ground level fall. Had retinal surgery 05/13. Two nights ago patient was walking around his bed and tripped against bedpost. He did not hit his head, no loss of consciousness. XR demonstrated minimally displaced fracture of 2nd distal phalangeal shaft. Patient declines splint at time evaluation and was discharged home. Brought to ER by earlier today due to acute change in mental status. Starting last night he became acutely confused and agitated while trying to find the restroom. He has had multiple episodes of urinary incontinence on the floor and subsequent falls. His behavior is described as very agitated and he does not understand directions at all. He cannot follow commands such as figuring out directions to the toilet and appears to be reaching out and grabbing, possibly trying to figure out where he is in space. ER evaluation notable for hemoglobin of 13.1, glucose 155, bilirubin 1.6; CBC, CMP, lipase otherwise unremarkable. UA without evidence of infection, Utox negative for any provocative substances. CXR, XR pelvis unremarkable. CT head showed only chronic small-vessel ischemic changes and intracranial internal carotid artery atherosclerosis with no acute intracranial pathology. [facility] Medical History (Updated 05/16/25 @ 15:53 by Fidelia Escobar RN) Family history of prostate cancer in father Elevated PSA BPH w urinary obs/LUTS Cataract Skin cancer HLD (hyperlipidemia) H/O urinary retention Essential hypertension Cataracts, bilateral Angioedema Surgical History Hx of cataract surgery Hx of knee surgery Family History Mother CVA (cerebral vascular accident) Tobacco consumption Father CVA (cerebral vascular accident) Hydrocephalus Hyperlipidemia Hypertension Social History marital status: number of children: 3 household members: spouse pets and animals: Yes leisure activities: exercise Smoking Status: Former smoker alcohol intake: former caffeine: Yes Meds Home Medications and Allergies Home Medications ?Medication ?Instructions ?Recorded ?Confirmed ?Type aspirin 81 mg tablet,delayed 81 mg PO DAILY #30 tabs 1 07/23/19 05/16/25 Rx release Held on 05/16/25. Instructions: EYE SURGERY Disabled Parking See Rx Instructions .Route 0 01/18/25 05/16/25 Rx .COMPLEX #365 days losartan 25 mg tablet 25 mg PO DAILY #30 tabs 02/0405/16/25 Rx ofloxacin 0.3 % eye drops 1 drp EYE-RIGHT QID 05/15/25 05/16/25 History prednisolone acetate 1 % eye 1 drp EYE-BOTH QID 05/16/25 History drops,suspension Allergies Allergy/AdvReac Type Severity Reaction Status Date / Time lisinopril Allergy Anaphylaxis Verified 05/16/25 11:00 Exam Vital Signs (past 8 hours): - 05/16/25 10:51 05/16/25 10:51 05/16/25 10:54 Temperature Pulse Rate 104 H 103 H Respiratory Rate 15 Blood Pressure 191/93 H Pulse Oximetry 100 98 Oxygen Delivery Method 05/16/25 10:54 05/16/25 11:00 05/16/25 11:00 Temperature 98.5 F Pulse Rate 104 H Respiratory Rate 18 Blood Pressure 208/91 H 191/93 H 169/82 H Pulse Oximetry 100 Oxygen Delivery Method Room Air 05/16/25 11:00 05/16/25 11:30 05/16/25 11:31 Temperature Pulse Rate 101 H 103 H 79 Respiratory Rate 16 16 14 Blood Pressure Pulse Oximetry 97 96 96 Oxygen Delivery Method 05/16/25 11:31 05/16/25 12:00 05/16/25 12:00 Temperature Pulse Rate 74 Respiratory Rate 16 Blood Pressure 170/86 H 171/82 H Pulse Oximetry 96 Oxygen Delivery Method 05/16/25 12:30 05/16/25 12:30 05/16/25 13:00 Temperature Pulse Rate 73 Respiratory Rate 15 Blood Pressure 172/80 H 182/84 H Pulse Oximetry 97 Oxygen Delivery Method 05/16/25 13:00 05/16/25 14:35 Temperature 98.1 F Pulse Rate 73 107 H Respiratory Rate 15 20 Blood Pressure 146/78 H Pulse Oximetry 96 96 Oxygen Delivery Method Oxygen Delivery Method Room Air Narrative Exam Narrative: General: Sleeping in bed, no distress HEENT: NC/AT, patch over right eye from recent retinal surgery, moist membranes CV: RRR, normal S1-S2, no m/g/r Resp: CTAB, comfortable WOB Abd: Soft, NTND, +BS Ext: No edema Skin: No rash or lesions noted Neuro: Arousable, oriented to self but not place or time, unable to follow simple commands consistently, moves all extremities, no focal deficits Objective Labs 05/17/25 05:00 05/17/25 05:00 Labs: Laboratory Results - last 24 hr 05/16/25 05/16/25 05/16/25 10:55 11:04 11:39 WBC 9.0 RBC 4.59 Hgb 13.1 L Hct 39.1 L MCV 85.4 MCH 28.6 MCHC 33.5 RDW 14.1 Plt Count 171 Neut % (Auto) 82.5 H Lymph % (Auto) 12.9 L [place] % (Auto) 3.4 Eos % (Auto) 0.4 L Baso % (Auto) 0.8 Neut # (Auto) 7400 H Lymph # (Auto) 1200 [place] # (Auto) 300 Eos # (Auto) 0 Baso # (Auto) 100 PT 11.0 INR 1.0 APTT 29 Sodium 140 Potassium 4.1 Chloride 110 H Carbon Dioxide 20 L BUN 16 Creatinine 0.81 Estimated GFR > 60 BUN/Creatinine Ratio 19.8 Glucose 155 H POC Whole Bld Glucose 149 H Lactate 1.8 Calcium 9.9 Total Bilirubin 1.6 H AST 40 ALT 24 Alkaline Phosphatase 54 Total Protein 7.7 Albumin 4.5 Globulin 3.2 Albumin/Globulin Ratio 1.4 Lipase 53 Urine RBC Urine WBC Ur Squamous Epith Cells Urine Bacteria Ur Culture Indicated? Vol Urine Centrifuged U Opiates 300ng/mL cut Ur Oxycodone Screen Urine Methadone Screen Ur Barbiturates Screen U Tricyclic Antidepress Ur Phencyclidine Scrn Ur Amphetamines Screen U Methamphetamines Scrn Ur MDMA Scrn (Ecstasy) U Benzodiazepines Scrn Urine Cocaine Screen U Marijuana (THC) Screen Urine pH Urine Specific [place] Ethyl Alcohol < 10 Ur Creatinine Blood Type A Positive Antibody Screen Negative 05/16/25 11:43 WBC RBC Hgb Hct MCV MCH MCHC RDW Plt Count Neut % (Auto) Lymph % (Auto) [place] % (Auto) Eos % (Auto) Baso % (Auto) Neut # (Auto) Lymph # (Auto) [place] # (Auto) Eos # (Auto) Baso # (Auto) PT INR APTT Sodium Potassium Chloride Carbon Dioxide BUN Creatinine Estimated GFR BUN/Creatinine Ratio Glucose POC Whole Bld Glucose Lactate Calcium Total Bilirubin AST ALT Alkaline Phosphatase Total Protein Albumin Globulin Albumin/Globulin Ratio Lipase Urine RBC None seen Urine WBC None seen Ur Squamous Epith Cells 0-1 /hpf Urine Bacteria None seen Ur Culture Indicated? Cult not indicated Vol Urine Centrifuged 10ml (spun) U Opiates 300ng/mL cut Negative Ur Oxycodone Screen Negative Urine Methadone Screen Negative Ur Barbiturates Screen Negative U Tricyclic Antidepress Negative Ur Phencyclidine Scrn Negative Ur Amphetamines Screen Negative U Methamphetamines Scrn Negative Ur MDMA Scrn (Ecstasy) Negative U Benzodiazepines Scrn Negative Urine Cocaine Screen Negative U Marijuana (THC) Screen Negative Urine pH Normal Urine Specific [place] Normal Ethyl Alcohol Ur Creatinine Normal Blood Type Antibody Screen Assessment & Plan Assessment & Plan narrative: 80-year-old male with HTN, HLD, prediabetes, BPH, left eye blindness admitted for acute onset encephalopathy and repeated falls in context of recent eye surgery. #acute encephalopathy Unclear cause, no significant abnormalities on limited ER evaluation that would indicate infection, CT head negative for acute intracranial process. Possible undiagnosed CVA vs post anesthesia reaction given recent surgery. Of note, patient was in the process of obtaining evaluation for cognitive decline in outpatient setting, however neuropsychology appointment is not scheduled for another 3 months. There is potential for acute cognitive decline without underlying medical pathology. -MRI -metabolic, endocrine labs -mIVF -delerium precautions #hypertension -losartan #hyperlipidemia -aspirin, atorvastatin #s/p retinal surgery Underwent surgery for epiretinal membrane and deposit on intra-ocular lens 2 days ago without apparent complication. Patient had follow-up with eye surgeon yesterday with normal cognitive/behavioral function until last night. -home ofloxacin, prednisolone eyedrops q.i.d. per surgeon Dispo: Observation, may require SNF for additional recovery if no medical pathology identified Diet: Liquid DVT ppx: SCDs Code: DNR PCP: Gilberto MDM: Jolanta Cross (spouse, ) Time-Based Coding :: 35 minutes spent with patient and on the chart (including review of chart, obtaining history, exam, reviewing outside data, placing orders, documenting exam and treatment plan, and counseling patient) on 05/16/2025. PROFEE Manager Of Patient Document charge(s): Yes Charge Codes Initial inpatient/observation care: [id number]
--- NOTE | 2025-05-16 17:59 | DI.MRI.S_ITS ---
PROCEDURE: MR HEAD/BRAIN WO CON INDICATIONS: Acute delerium 2 days post retinal surgery TECHNIQUE: Non-contrast axial T1 spin echo, axial T2 fast spin echo, sagittal and axial FLAIR, coronal T2 fast spin echo, axial gradient echo, axial diffusion and ADC through the brain. COMPARISON: [facility], CT, CT HEAD/BRAIN WO CON, 05/16/2025, 11:22. FINDINGS: Image quality: Excellent. CSF spaces: Ventricles appear symmetric in size and shape. Basal cisterns are patent. No extra-axial fluid collections. Brain: No intracranial bleeds or mass effects. There is cerebral volume loss for age. There are periventricular and deep white matter chronic small vessel ischemic changes. Brainstem appears normal. Diffusion-weighted images show no acute infarct. No chronic ischemic insults. Normal intravascular flow voids are present. Focus of susceptibility artifact within the posterior right frontal lobe near the vertex, may represent sequela of prior chronic microhemorrhage. Skull and face: Calvarial bone marrow is normal in signal. Bilateral lens replacements. Otherwise, the orbits are unremarkable. Sinuses: Mild diffuse mucosal thickening. Complete opacification of the left maxillary sinus. The mastoid air cells are clear. IMPRESSION: No acute or subacute infarct. No acute intracranial abnormalities. Moderate global volume loss and chronic microvascular ischemic change. Sinusitis with complete opacification of the left maxillary sinus. Dictated by: Ej Rodriguez M.D. on 05/17/2025 at 11:12 Approved by: Ej Rodriguez M.D. on 05/17/2025 at 11:14
[2025-05-16] MEDS: SODIUM CHLORIDE 0.9% 1,000 ML 75 ML IV (18:36)
[2025-05-17] MEDS: ACETAMINOPHEN 325 MG TABLET 650 MG PO ×2 (00:42→06:25)
[2025-05-17 04:00] VITALS: BP 131/82; PULSE 73; RESP 16; O2SAT 96
[2025-05-17 05:20] LABS: Add Manual Diff / Slide Review NO; Hematocrit 33.5 % (41-53); Hemoglobin 11.6 g/dL (13.5-17.5); Lymphocytes Absolute Auto 2100 /uL (1100-4500); Mean Corpuscular HGB Conc 34.6 % (30-36); Mean Corpuscular Hemoglobin 29.2 PG (26-34); Mean Corpuscular Volume 84.4 fL (80-100); Platelet Count 148 X10^3/uL (150-400)
[2025-05-17 05:28] LABS: Hemoglobin A1C% w Est Avg Glu 5.5 % (4.0-6.0)
[2025-05-17 05:33] LABS: Ammonia (NH3) 12 umol/L (9-30)
[2025-05-17 05:34] LABS: Alanine Aminotransferase 18 IU/L (<50); Albumin 3.6 g/dL (3.5-5.0); Albumin Globulin Ratio 1.3 (1.0-2.8); Alkaline Phosphatase 46 U/L (38-126); Blood Urea Nitrogen 16 mg/dL (9-20); Calcium 9.2 mg/dL (8.4-10.2); Carbon Dioxide 21 mmol/L (22-32); Chloride 111 mmol/L (98-107); Estimated Glomerular Filt Rate > 60 mL/min (>60); Globulin 2.7 g/dL (1.7-4.1); Glucose 102 mg/dL (70-99); HEMOLYSIS < 15 (0-50); Magnesium 2.0 mg/dL (1.6-2.3); Potassium 3.6 mmol/L (3.4-5.1); Sodium 140 mmol/L (137-145); Total Protein 6.3 g/dL (6.3-8.2)
[2025-05-17 06:05] LABS: TSH w/ Reflex to FT4 1.53 uIU/mL (0.47-4.68)
[2025-05-17 06:23] LABS: Vitamin B12 Reflex MMA if <400 > 1000 pg/mL (239-931)
[2025-05-17 06:41] LABS: Folate 8.3 ng/mL (2.76-20.0)
--- NOTE | 2025-05-17 10:24 | DIET.CONS ---
Dietary Consultation Note Admission Date: 05/16/2025 12:37 Assessment: 80 y M admitted for altered mental status. Dietitian screened for low MNA score. Per team rounds this morning, pt mad/agitated wanting to leave this morning. EMR reviewed. Per provider notes, pt was in process of getting OP assessment for cognitive decline. Ht: 170.18 cm Wt: 64 kg BMI: 22.1 UBW: 75.75 kg on 06/28/24, 71.5 kg on 01/18/25, 72 kg on 04/17/25 (-11% weight loss in 1 month, severe) Last BM: 05/17/25 (05/17/25 09:41) MNA: 8 Nathaniel Score: 21 Diet: 05/17/25 Breakfast Clear Liquid Diet Diet Modifications: Labs: RBC 3.97 X10^6/uL (4.5-5.9) L 05/17/25 05:00 Hgb 11.6 g/dL (13.5-17.5) L 05/17/25 05:00 Hct 33.5 % (41-53) L 05/17/25 05:00 Creatinine 0.90 mg/dL (0.66-1.25) 05/17/25 05:00 Hemoglobin A1c 5.5 % (4.0-6.0) 05/17/25 05:00 Lactate 1.8 mmol/L (0.7-2.1) 05/16/25 10:55 Nutrition Diagnosis: Unintentional weight loss r/t unknown etiology/inadequate oral intakes aeb -11% weight loss in 1 month, severe Interventions: Monitor PO intakes, if multiple <75%, ONS BID EER: [id number] kcals (25-30 kcals/kg per BMI) 65 g protein (1g/kg per age) Monitoring/Evaluations: f/u for assessment when appropriate , po intakes Electronically Signed by: Nathalia Hernandez 05/17/25 10:24 Clinical Dietitian [address] [address]
[2025-05-17] MEDS: ASPIRIN EC 81 MG TABLET PO (11:01)
[2025-05-17] MEDS: LOSARTAN 25 MG TABLET PO (11:01)
[2025-05-17 11:38] VITALS: BP 151/88; PULSE 69; RESP 18; TEMP 36.3; O2SAT 98
--- NOTE | 2025-05-17 11:48 | P.DS_ITS ---
History of Present Illness History of Present Illness Date Patient Seen: 05/17/25 Chief complaint: Fall Narrative: 80-year-old male with HTN, HLD, prediabetes, BPH, left eye blindness. Presented to [facility] yesterday with concerns of injuries from ground level fall. Had retinal surgery 05/13. Two nights ago patient was walking around his bed and tripped against bedpost. He did not hit his head, no loss of consciousness. XR demonstrated minimally displaced fracture of 2nd distal phalangeal shaft. Patient declines splint at time evaluation and was discharged home. Brought to ER by earlier today due to acute change in mental status. Starting last night he became acutely confused and agitated while trying to find the restroom. He has had multiple episodes of urinary incontinence on the floor and subsequent falls. His behavior is described as very agitated and he does not understand directions at all. He cannot follow commands such as figuring out directions to the toilet and appears to be reaching out and grabbing, possibly trying to figure out where he is in space. ER evaluation notable for hemoglobin of 13.1, glucose 155, bilirubin 1.6; CBC, CMP, lipase otherwise unremarkable. UA without evidence of infection, Utox negative for any provocative substances. CXR, XR pelvis unremarkable. CT head showed only chronic small-vessel ischemic changes and intracranial internal carotid artery atherosclerosis with no acute intracranial pathology. Discharge Providers Provider Date of admission: 05/16/25 12:37 Discharge Date: 05/17/25 Primary care physician: Rick Macias MD Discharge provider: Rick Macias MD Summary Hospital Course Discharge Diagnosis: #acute encephalopathy #hypertension #hyperlipidemia #s/p retinal surgery #left eye blindness #multiple falls Hospital Course: No significant abnormalities on limited ER evaluation that would indicate infection, CT head negative for acute intracranial process. MRI without evidence of any acute or subacute infarct, no acute intracranial abnormalities. Moderate global volume loss and chronic microvascular ischemic changes noted along with left maxillary sinusitis. Appears to have returned to baseline cognitive function although there is some lack of understanding as to why he is in the hospital in the first place. Of note, patient was in the process of obtaining evaluation for cognitive decline in outpatient setting, however neuropsychology appointment is not scheduled for another 3 months. Evaluated by PT prior to discharge in order to obtain any recommendations to increase home safety profile. Status at Discharge Cognitive/behavioral status at discharge: oriented Functional status at discharge: independent ambulation Overall status at discharge: patient is back to baseline Time Spent with Patient Time spent: Less than 30 minutes Exam Vital Signs (past 8 hours): - 05/17/25 04:00 05/17/25 11:38 Temperature 97.3 F L Pulse Rate 73 69 Respiratory Rate 16 18 Blood Pressure 131/82 151/88 H Pulse Oximetry 96 98 Oxygen Flow Rate 0 0 Oxygen Delivery Method Room Air Oxygen Flow Rate 0 Narrative Exam Narrative: General: Sitting in bedside chair, no distress HEENT: NC/AT, patch over right eye from recent retinal surgery, moist membranes CV: RRR, normal S1-S2, no m/g/r Resp: CTAB, comfortable WOB Abd: Soft, NTND, +BS Ext: No edema Skin: No rash or lesions noted Neuro: Alert, oriented, upset but able to calm and be reasoned with, moves all extremities, no focal deficits Objective Imaging MRI - head: Radiologist's impression: MR HEAD/BRAIN WO CON FINDINGS: Image quality: Excellent. CSF spaces: Ventricles appear symmetric in size and shape. Basal cisterns are patent. No extra-axial fluid collections. Brain: No intracranial bleeds or mass effects. There is cerebral volume loss for age. There are periventricular and deep white matter chronic small vessel ischemic changes. Brainstem appears normal. Diffusion-weighted images show no acute infarct. No chronic ischemic insults. Normal intravascular flow voids are present. Focus of susceptibility artifact within the posterior right frontal lobe near the vertex, may represent sequela of prior chronic microhemorrhage. Skull and face: Calvarial bone marrow is normal in signal. Bilateral lens replacements. Otherwise, the orbits are unremarkable. Sinuses: Mild diffuse mucosal thickening. Complete opacification of the left maxillary sinus. The mastoid air cells are clear. IMPRESSION: No acute or subacute infarct. No acute intracranial abnormalities. Moderate global volume loss and chronic microvascular ischemic change. Sinusitis with complete opacification of the left maxillary sinus. Dictated by: Ej Rodriguez M.D. on 05/17/2025 at 11:12 Approved by: Ej Rodriguez M.D. on 05/17/2025 at 11:14 Labs 05/17/25 05:00 05/17/25 05:00 Labs: Laboratory Results - last 24 hr 05/16/25 05/16/25 05/17/25 11:39 11:43 05:00 WBC 7.3 RBC 3.97 L Hgb 11.6 L Hct 33.5 L MCV 84.4 MCH 29.2 MCHC 34.6 RDW 14.1 Plt Count 148 L Neut % (Auto) 59.3 D Lymph % (Auto) 28.8 Jennings % (Auto) 8.7 Eos % (Auto) 2.3 Baso % (Auto) 0.9 Neut # (Auto) 4300 Lymph # (Auto) 2100 Jennings # (Auto) 600 Eos # (Auto) 200 Baso # (Auto) 100 Sodium 140 Potassium 3.6 Chloride 111 H Carbon Dioxide 21 L BUN 16 Creatinine 0.90 Estimated GFR > 60 BUN/Creatinine Ratio 17.8 Glucose 102 H Hemoglobin A1c 5.5 Calcium 9.2 Magnesium 2.0 Total Bilirubin 1.7 H AST 30 ALT 18 Alkaline Phosphatase 46 Ammonia 12 Total Protein 6.3 Albumin 3.6 Globulin 2.7 Albumin/Globulin Ratio 1.3 Vitamin B12 > 1000 H Folate 8.3 TSH 1.53 Urine RBC None seen Urine WBC None seen Ur Squamous Epith Cells 0-1 /hpf Urine Bacteria None seen Ur Culture Indicated? Cult not indicated Vol Urine Centrifuged 10ml (spun) U Opiates 300ng/mL cut Negative Ur Oxycodone Screen Negative Urine Methadone Screen Negative Ur Barbiturates Screen Negative U Tricyclic Antidepress Negative Ur Phencyclidine Scrn Negative Ur Amphetamines Screen Negative U Methamphetamines Scrn Negative Ur MDMA Scrn (Ecstasy) Negative U Benzodiazepines Scrn Negative Urine Cocaine Screen Negative U Marijuana (THC) Screen Negative Urine pH Normal Urine Specific [place] Normal Ur Creatinine Normal Blood Type A Positive Antibody Screen Negative [facility] Medical History (Updated 05/16/25 @ 15:53 by Fidelia Escobar RN) Family history of prostate cancer in father Elevated PSA BPH w urinary obs/LUTS Cataract Skin cancer HLD (hyperlipidemia) H/O urinary retention Essential hypertension Cataracts, bilateral Angioedema Surgical History Hx of cataract surgery Hx of knee surgery Family History Mother CVA (cerebral vascular accident) Tobacco consumption Father CVA (cerebral vascular accident) Hydrocephalus Hyperlipidemia Hypertension Social History marital status: number of children: 3 household members: spouse pets and animals: Yes leisure activities: exercise Smoking Status: Former smoker alcohol intake: former caffeine: Yes Discharge Assessment & Plan Assessment and Plan Assessment: 80-year-old male with HTN, HLD, prediabetes, BPH, left eye blindness admitted for acute onset encephalopathy and repeated falls in context of recent eye surgery Plan of Treatment: #acute encephalopathy Unclear cause, no significant abnormalities on limited ER evaluation that would indicate infection, CT head negative for acute intracranial process. MRI without evidence of any acute or subacute infarct, no acute intracranial abnormalities. Moderate global volume loss and chronic microvascular ischemic changes noted along with left maxillary sinusitis. Appears to have returned to baseline cognitive function although there is some lack of understanding as to why he is in the hospital in the first place. Of note, patient was in the process of obtaining evaluation for cognitive decline in outpatient setting, however neuropsychology appointment is not scheduled for another 3 months. There is potential for acute cognitive decline without underlying medical pathology. -neuropsychology evaluation outpatient #hypertension -continue losartan #hyperlipidemia -continue aspirin, atorvastatin #s/p retinal surgery #left eye blindness #multiple falls Underwent surgery for epiretinal membrane and deposit on intra-ocular lens 05/13/25 without apparent complication. 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 Suspect recent falls due to attempts to ambulate independently without any vision given recent operation on his single functional eye. -home ofloxacin, prednisolone eyedrops q.i.d. per surgeon Discharge Plan Discharge Plan Patient Disposition: Home Discharge orders & Medications Prescriptions: Continued ofloxacin 0.3 % drops 1 drp EYE-RIGHT QID Patient Comments: [NO ORIGINAL SIG] prednisolone acetate 1 % drops,suspension 1 drp EYE-BOTH QID losartan 25 mg tablet 25 mg PO DAILY Qty: 30 3RF Disabled Parking See Rx Instructions .ROUTE .COMPLEX Qty: 365 0RF Rx Instructions: I find this patient to be medically disabled and qualified for Disabled Parking as indicated and signed on the accompanying Disabled Parking Application for Individuals aspirin 81 mg Tablet,Delayed Release (Dr/Ec) 81 mg PO DAILY Qty: 30 0RF Follow up/Referrals: Rick Macias MD [Primary Care Provider, Family Practice] Diet/Activity/Treatments Diet: Regular Visit Report/Discharge Packet Stand Alone Forms: Patient Portal/API, Stroke Signs & Symptoms Discharge Data Primary Care Provider: Rick Macias Attending Provider: Rick Macias Admit Date/Time: 05/16/25 12:37 PROFEE Charge Codes Discharge inpatient/observation: [id number]
--- NOTE | 2025-05-17 14:16 | PT.IIE ---
Surgical History (Last Reviewed 09/08/23 @ 16:20 by Rosalba Sheriff PA-C) Hx of cataract surgery Hx of knee surgery Medical History (Last Updated 08/28/24 @ 11:05 by Rick Macias MD) Angioedema BPH w urinary obs/LUTS Cataract Cataracts, bilateral Elevated PSA Essential hypertension Family history of prostate cancer in father H/O urinary retention HLD (hyperlipidemia) Skin cancer Physical Therapy Inpatient Evaluation/Re-Eval M1 PT IP Prior Functional Status Start: 05/17/25 14:18 Freq: NEEDED Status: Active Protocol: Document 05/17/25 14:16 DLM (Rec: 05/17/25 14:57 DLM Desktop) Medical Review Prior Functional Status Medical History Yes Reviewed Diet/Fluid Regular Consistency Communication glasses all the time, blind left eye, decreased vision right eye after retinal surgery 05/13/25 Mobility and Gait independent with cane/walking stick, hx of falls, he reports sometimes his has to help on the stairs Activities of Daily Independent with basic ADL's, his helps with Living and IADL's advanced ADL's and the house keeping Prior Functional chart notes indicate a cognitive decline at home, Level (Other details Neuropsychology assessment planned but scheduled out ) about 3 months Social History Household Members spouse Living Arrangements House Number of Floors ( One Floor Floors) Number of Stairs To 2-3 steps with one rail Enter/Railing? 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 History Comment M2 PT-IP Current Condition Start: 05/17/25 14:18 Freq: NEEDED Status: Active Protocol: Document 05/17/25 14:16 DLM (Rec: 05/17/25 14:57 DLM Desktop) Physical Therapy Current Condition Current Condition Evaluation Date 05/17/25 Treatment Diagnosis fall, right finger fx, impaired balance and gait Onset Date 05/16/25 M3 PT-IP Subjective Start: 05/17/25 14:18 Freq: NEEDED Status: Active Protocol: Document 05/17/25 14:16 DLM (Rec: 05/17/25 14:57 DLM Desktop) Subjective Physical Therapy Visit Type Type Initial Evaluation Visit Start Time 13:32 Visit Stop Time 14:16 Notes 44 min Number of AIR QUALITY TECHNICIAN Visits 0 Physical Therapy Visit Comments Patient Comments He c/o left great toe pain and right finger soreness Patient Goals Go home Therapy Pain Assessment Pain When Pain Assessed During Mobility Pain Present Pain Present Pain Reported Location left great toe Scale Used he could not rate Description Aching,Tender,With Movement Pain Behaviors Guarding Pain Management Modification of Treatment Techniques M4 PT-IP Mobility and Gait Start: 05/17/25 14:18 Freq: NEEDED Status: Active Protocol: Document 05/17/25 14:16 DLM (Rec: 05/17/25 14:57 DLM Desktop) PT-Bed Mobility Assessment Rolling Level of Assist Independent Supine to Sit Supine to Sit Independent Sit to Supine Sit to Supine Independent Scooting Scooting to Edge of Independent Bed PT-Transfer Assessment Sit to and From Stand Sit to and from Standby Assistance,Use of Upper Extremities Stand Equipment Transfer Assistive Gait Belt,Straight Cane,Front Wheeled Walker Device Transfers Transfer Destination Bed,Chair Transfer Technique Stand Step Pivot Transfer Ability Level of Assist Standby Assistance,Use of Upper Extremities Comments Mobility Comments He reports increased left great toe soreness with standing on it. Gait Assessment Gait Gait Assistance Minimum Assistance Required: Assistive Devices Assistive Device Gait Belt,Straight Cane Gait Deviations General Gait Pattern Antalgic Factors Limiting Gait Function Factors Limiting Decreased Activity Tolerance,Pain,Poor Balance Gait Function Comments Gait Comments During gait with the cane he has intermittent losses of balance both laterally and posteriorly and needs assistance to recover. Gait training performed with the FWW and he was able to ambulate with stand by assist and no losses of balance . He needs verbal cues to manage the Fww around obstacles due to decreased vision and inexperience using FWW. Recommend FWW for home use to decrease his fall risks Stair Climbing Assessment Evaluation Level of Assist On Minimal Assistance Stairs Devices Stair Climbing Straight Cane,Right Railing Assistive Devices Technique/Endurance Stair Climbing Ascend and Descend Direction Stair Climbing Step to Step Technique Number of Steps 3 Climbed Query Text: Stair Climbing Set # 1 Repetitions (reps) Comments Stair Climbing more difficulty stepping up with left LE than right, he Comments tends to turn partially sideways when stepping down the steps, needs minimal assist to manage his balance Improved balance noted if he has bilateral rails to hold for going up/down stairs. PT-Balance Assessment Sitting Balance and Reactions Static Sitting Good Balance Ability Dynamic Sitting Good Balance Ability Standing Balance and Reactions Static Standing Fair Balance Ability Dynamic Standing Fair Balance Ability Comments Other Balance Tests/ Improved standing balance with use of FWW Deviations/Treatment Noted pt weight bearing more on left heal with c/o left : great toe pain M5 PT-IP Objective Assessments Start: 05/17/25 14:18 Freq: NEEDED Status: Active Protocol: Document 05/17/25 14:16 DLM (Rec: 05/17/25 14:57 DLM Desktop) Orientation Orientation/Cognition Level of Alertness Alert Safety Awareness Decreased Safety Awareness Memory Description Short Term Impaired Comments tangential, easily distracted, difficulty problem solving he is cooperative and pleasant during therapy session Gross Range of Motion Upper Extremity ROM Assessment Within Functional Limits Impairments right finger not tested due to dressing and new fx Lower Extremity ROM Assessment Within Functional Limits Impairments left great toe it very tender to touch and active movement Strength Upper Extremity Strength Assessment Within Functional Limits Hand right fingers not specifically tested due to new fx, able to hold FWW Lower Extremity Strength Assessment Within Functional Limits Ankle left great toe not tested due to pain Coordination Assessment Gross Coordination Gross Coordination WNL Sensation Assessment Comments Sensation Comments hx numbness right UE after cervical spine surgery Muscle Tone Muscle Tone WNL Yes M6 PT-IP Treatment Start: 05/17/25 14:18 Freq: NEEDED Status: Active Protocol: Document 05/17/25 14:16 DLM (Rec: 05/17/25 14:57 DLM Desktop) Physical Therapy Treatment Education Education Provided Safety Other Treatments Other Treatment recommend use of FWW at home to decrease his fall risk, Performed discussed with his the need for equipment and his need for min assist on the stairs His plans to hot die picker a fWW at [facility], they have a neighbor who can help get him into the house if needed M7 PT-IP Assessment and Plan Start: 05/17/25 14:18 Freq: NEEDED Status: Active Protocol: Document 05/17/25 14:16 DLM (Rec: 05/17/25 14:57 DLM Desktop) PT Summary Assessment and Plan Potential Rehabilitation Good Potential Status of Condition Evolving at Evaluation Summary Impairments Pain,Balance,Cognition,Transfers,Gait,Activity Tolerance Assessment Summary Ibrahima is alert and sitting up in the recliner with his present. He was admitted after a fall at home. He suffered right 2nd finger fx and he has left great toe pain. Pt had recent right eye procedure which complicates his vision. Pt has a hx of blindness in left eye. He has decreased standing balance this visit with losses of balance during gait with a cane. He needs min assist during gait with a cane. Gait training performed with a FWW which better manages his balance and his left toe pain. Recommend FWW for home use. His plans to get him a FWW for home use. Recommend home with assist from his . He could benefit from home health services to further assess and manage his fall risks at home. Frequency of Treatment Frequency Of Discharge Treatment Treatment Plan Other anticipate discharge home later today. Recommendations and Next Treatment Focus Precautions Other Precautions hx of falls impaired standing balance blind left eye Due to recent retinal surgery, pt to avoid bending down , should cover right eye for sleep Recommendations To Nursing Amount of Assist 1 Person Assist Needed Discharge Recommendations PT Discharge Home with Assistance,Home Health Recommendations Other Discharge His is available to help at home Recommendations Equipment Needed for FWW Home Before Discharge Transportation Needs Private Vehicle at Discharge - PT assist 1
--- NOTE | 2025-05-17 15:16 | CM.DANOTE ---
Initial DCP Assessment Visit Note Reviewed EMR and team rounds for pt's medical status and updates. Went to the room to meet with pt's , primarily, and to assess pt needs, however she was no longer in the room, and he was sound asleep. Pt has been having a steady cognitive decline at home. Per PCP, he is working with family on getting a Neurologist eval for pt to assess pathology of decline. Pt was medically cleared for d/c, and his transported him back home. Payor: [employer] PCP: Dr. Macias Pt is a 80 year-old M with recent eye surgery and a chronic cognitive decline, etiology not yet known. He was admitted with AMS, however did clear up throughout the day and was cleared for d/c. Pt had a GLF earlier this week resulting in a fractured finger, otherwise no other medical concerns. Pt will f/u with Dr. Macias outpatient to pursue neurological consult. No CM d/c assistance or resource needs were identified at this time. 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 Yes Advance Directives No on File History Provided By Medical Record Prior Living House Arrangements Household Members spouse Type of Relies on Others transporation used prior to admit Independent with ADL No: Modified ind with family assistance, is d/c'ing 's with a walker. Needs Assistance Meal Prep,Managing Medications,Home Chores / Shopping With Caregiver for No Another Comment N/A DME Already Rented / Bath Bench,Elevated Toilet Seat,FWW / Walker Owned Comment No d/c needs identified at this time. Barriers to No Discharge Discharge Plan Home Referrals Initiated None needed Review Status In Process Please Provide Date 05/17/25 Initial DC Assessment Was Performed
--- NOTE | 2025-05-17 15:59 | PC.NURSE ---
Day shift: Paperwork signed and all questions answered. Pt has all personal belongings. No new MD scripts. Rt index finger brace in place per Dr Macias. Taken to car via WC at approx 1600 by ELVA Interiano.
--- NOTE | 2025-05-17 16:01 | PC.NURSE ---
Day shift: Left unit at approx 1600 via WC. Taken by SAAD Interiano. Pt's partner is driving him home. No new MD scripts. Paperwork signed and all questions answered. Rt index finger splint applied per Dr Macias.
[2025-05-21 16:09] LABS: Osmolality, Serum 291 mOsmol/kg (280-301)
--- NOTE | 2025-05-29 09:29 | ED.AMS ---
HPI - Altered Mental Status General Chief Complaint: Altered Mental Status Stated Complaint: Fall Time Seen by Provider: 05/16/25 10:44 Source: EMS Mode of arrival: EMS History of Present Illness HPI narrative: 80-year-old male with HTN, HLD, prediabetes, BPH, left eye blindness. Brought to ER due to acute change in mental status. Starting last night he became acutely confused and agitated while trying to find the restroom. He has had multiple episodes of urinary incontinence on the floor and subsequent falls. Unable to provide further history due to mental status Related Data Home Medications ?Medication ?Instructions ?Recorded ?Confirmed ofloxacin 0.3 % eye drops 1 drp EYE-RIGHT QID 05/15/25 05/22/25 prednisolone acetate 1 % eye 1 drp EYE-BOTH QID 05/15/25 05/22/25 drops,suspension Previous Rx's ?Medication ?Instructions ?Recorded aspirin 81 mg tablet,delayed 81 mg PO DAILY #30 tabs 05/22/20 release Disabled [address]ing See Rx Instructions .Route 01/18/25 .COMPLEX #365 days losartan 25 mg tablet 25 mg PO DAILY #30 tabs 01/18/25 Allergies Allergy/AdvReac Type Severity Reaction Status Date / Time lisinopril Allergy Anaphylaxis Verified 05/16/25 11:00 Review of Systems Review of Systems ROS Unobtainable: Unobtainable due to medical condition Patient History Medical History (Updated 05/16/25 @ 15:53 by Fidelia Escobar RN) Family history of prostate cancer in father Elevated PSA BPH w urinary obs/LUTS Cataract Skin cancer HLD (hyperlipidemia) H/O urinary retention Essential hypertension Cataracts, bilateral Angioedema Surgical History Hx of cataract surgery Hx of knee surgery Family History Mother CVA (cerebral vascular accident) Tobacco consumption Father CVA (cerebral vascular accident) Hydrocephalus Hyperlipidemia Hypertension Social History marital status: number of children: 3 household members: spouse pets and animals: Yes leisure activities: exercise alcohol intake: former caffeine: Yes Smoking Status: Former smoker alcohol intake frequency: holidays/special occasions only Exam Narrative Exam Narrative: Superficial bruising over right anterior tibia Initial Vital Signs Initial Vital Signs: Vital Signs Pulse Rate 104 H 05/16/25 10:51 Blood Pressure 191/93 H 05/16/25 10:51 Pulse Oximetry 100 05/16/25 10:51 Const General: well developed Nutritional Appearance: average body habitus [facility] Head: normal to inspection Ears: external ears normal Nose: external nose normal and nares normal Face and sinus: sinuses nontender, face symmetric, ecchymosis not on the right, not on the left and not bilaterally, erythema not on the right, not on the left and not bilaterally and edema not on the right, not on the left and not bilaterally Mouth: lip normal Eyes General: Yes appearance normal, both eyes and all related structures Eyelids: eyelids normal Sclera: sclerae normal Pupils: PERRL Neck Neck: normal visual inspection Resp Effort & Inspection: normal respiratory effort and able to speak in complete sentences GI Inspection: normal to inspection and non-distended Back/Spine/Pelvis Back: normal to inspection Neuro General: patient awake, gait normal, moves all extremities, normal light touch, pain and propioception, no focal motor deficits and CN's II-XI intact bilaterally Speech: speech normal Motor: muscle tone normal throughout Sensory Exam: no sensory deficits noted Course Orders Ordered: Discontinued Medications Acetaminophen (Acetaminophen 325 Mg Tablet) 650 mg PO Q6H PRN PRN Reason: Fever/Mild Pain (1-3) Last Admin: 05/17/25 06:25 Dose: 650 mg Documented By: Admin: 05/17/25 00:42 Dose: 650 mg Documented By: CONCHITA Aspirin (Aspirin Ec 81 Mg Tablet) 81 mg PO DAILY [facility] Last Admin: 05/17/25 11:01 Dose: 81 mg Documented By: AMBER Sodium Chloride (Normal Saline 0.9%) 1,000 mls @ 75 mls/hr IV CONT [facility] Last Admin: 05/16/25 18:36 Dose: 75 mls/hr Documented By: AMBER Losartan Potassium (Losartan 25 Mg Tablet) 25 mg PO DAILY [facility] Last Admin: 05/17/25 11:01 Dose: 25 mg Documented By: AMBER Naloxone HCl (Naloxone 0.4 Mg/Ml Vial) 0.2 mg IV Q2MIN PRN PRN Reason: Opiate Reversal Nf (Ofloxacin 0.5% (Eye Drops)) 1 each EYE-RIGHT QID [place] Last Admin: 05/17/25 13:01 Dose: 1 each Documented By: Admin: 05/17/25 11:01 Dose: 1 each Documented By: Admin: 05/16/25 21:54 Dose: 1 each Documented By: CONCHITA Nf (Prednisolone (Acetate1% Eye Drop)) 1 each EYE-RIGHT QID [place] Last Admin: 05/17/25 13:01 Dose: 1 each Documented By: Admin: 05/17/25 11:01 Dose: 1 each Documented By: Admin: 05/16/25 21:54 Dose: 1 each Documented By: CONCHITA MDM - Altered Mental Status Lab Data 05/17/25 05:00 05/17/25 05:00 Labs: Lab Results 05/16/25 05/16/25 05/16/25 Range/Units 10:55 11:04 11:39 WBC 9.0 (4.5-11.0) X10^3/uL RBC 4.59 (4.5-5.9) X10^6/uL Hgb 13.1 L (13.5-17.5) g/dL Hct 39.1 L (41-53) % MCV 85.4 (80-100) fL MCH 28.6 (26-34) PG MCHC 33.5 (30-36) % RDW 14.1 (11.6-14.8) % Plt Count 171 (150-400) X10^3/uL Neut % (Auto) 82.5 H (50-75) % Lymph % (Auto) 12.9 L (25-40) % Imperial % (Auto) 3.4 (3-14) % Eos % (Auto) 0.4 L (2-4) % Baso % (Auto) 0.8 (0-2) % Neut # (Auto) 7400 H (1643-7003) /uL Lymph # (Auto) 1200 (7884-1927) /uL Imperial # (Auto) 300 (0-900) /uL Eos # (Auto) 0 (0-450) /uL Baso # (Auto) 100 (0-100) /uL PT 11.0 (9.4-12.5) SECONDS INR 1.0 (0.9-1.3) APTT 29 (25.1-36.5) SECONDS Sodium 140 (137-145) mmol/L Potassium 4.1 (3.4-5.1) mmol/L Chloride 110 H (98-107) mmol/L Carbon Dioxide 20 L (22-32) mmol/L BUN 16 (9-20) mg/dL Creatinine 0.81 (0.66-1.25) mg/dL Estimated GFR > 60 (>60) mL/min BUN/Creatinine Ratio 19.8 (6-22) Glucose 155 H (70-99) mg/dL POC Whole Bld Glucose 149 H (70-99) mg/dL Lactate 1.8 (0.7-2.1) mmol/L Calcium 9.9 (8.4-10.2) mg/dL Total Bilirubin 1.6 H (0.2-1.3) mg/dL AST 40 (17-59) IU/L ALT 24 (<50) IU/L Alkaline Phosphatase 54 (38-126) U/L Total Protein 7.7 (6.3-8.2) g/dL Albumin 4.5 (3.5-5.0) g/dL Globulin 3.2 (1.7-4.1) g/dL Albumin/Globulin Ratio 1.4 (1.0-2.8) Lipase 53 (23-300) U/L Urine RBC (0-5/HPF) Urine WBC (0-5/HPF) Ur Squamous Epith Cells (0-5/HPF) Urine Bacteria (None) Ur Culture Indicated? Vol Urine Centrifuged U Opiates 300ng/mL cut (Negative) Ur Oxycodone Screen (Negative) Urine Methadone Screen (Negative) Ur Barbiturates Screen (Negative) U Tricyclic Antidepress (Negative) Ur Phencyclidine Scrn (Negative) Ur Amphetamines Screen (Negative) U Methamphetamines Scrn (Negative) Ur MDMA Scrn (Ecstasy) (Negative) U Benzodiazepines Scrn (Negative) Urine Cocaine Screen (Negative) U Marijuana (THC) Screen (Negative) Urine pH (Normal) Urine Specific Ewell (Normal) Ethyl Alcohol < 10 (<10) mg/dL Ur Creatinine (Normal) Blood Type A Positive Antibody Screen Negative 05/16/25 Range/Units 11:43 WBC (4.5-11.0) X10^3/uL RBC (4.5-5.9) X10^6/uL Hgb (13.5-17.5) g/dL Hct (41-53) % MCV (80-100) fL MCH (26-34) PG MCHC (30-36) % RDW (11.6-14.8) % Plt Count (150-400) X10^3/uL Neut % (Auto) (50-75) % Lymph % (Auto) (25-40) % Imperial % (Auto) (3-14) % Eos % (Auto) (2-4) % Baso % (Auto) (0-2) % Neut # (Auto) (6345-1810) /uL Lymph # (Auto) (8293-4335) /uL Imperial # (Auto) (0-900) /uL Eos # (Auto) (0-450) /uL Baso # (Auto) (0-100) /uL PT (9.4-12.5) SECONDS INR (0.9-1.3) APTT (25.1-36.5) SECONDS Sodium (137-145) mmol/L Potassium (3.4-5.1) mmol/L Chloride (98-107) mmol/L Carbon Dioxide (22-32) mmol/L BUN (9-20) mg/dL Creatinine (0.66-1.25) mg/dL Estimated GFR (>60) mL/min BUN/Creatinine Ratio (6-22) Glucose (70-99) mg/dL POC Whole Bld Glucose (70-99) mg/dL Lactate (0.7-2.1) mmol/L Calcium (8.4-10.2) mg/dL Total Bilirubin (0.2-1.3) mg/dL AST (17-59) IU/L ALT (<50) IU/L Alkaline Phosphatase (38-126) U/L Total Protein (6.3-8.2) g/dL Albumin (3.5-5.0) g/dL Globulin (1.7-4.1) g/dL Albumin/Globulin Ratio (1.0-2.8) Lipase (23-300) U/L Urine RBC None seen (0-5/HPF) Urine WBC None seen (0-5/HPF) Ur Squamous Epith Cells 0-1 /hpf (0-5/HPF) Urine Bacteria None seen (None) Ur Culture Indicated? Cult not indicated Vol Urine Centrifuged 10ml (spun) U Opiates 300ng/mL cut Negative (Negative) Ur Oxycodone Screen Negative (Negative) Urine Methadone Screen Negative (Negative) Ur Barbiturates Screen Negative (Negative) U Tricyclic Antidepress Negative (Negative) Ur Phencyclidine Scrn Negative (Negative) Ur Amphetamines Screen Negative (Negative) U Methamphetamines Scrn Negative (Negative) Ur MDMA Scrn (Ecstasy) Negative (Negative) U Benzodiazepines Scrn Negative (Negative) Urine Cocaine Screen Negative (Negative) U Marijuana (THC) Screen Negative (Negative) Urine pH Normal (Normal) Urine Specific Ewell Normal (Normal) Ethyl Alcohol (<10) mg/dL Ur Creatinine Normal (Normal) Blood Type Antibody Screen Point of Care Testing Glucose POC 149 Urine Dip Bedside Urine Glucose 100 mg/dl Bedside Urine Bilirubin - Negative Bedside Urine Ketone ++ 40 Urine Specific Ewell 1.025 Bedside Urine Occult Blood + Bedside Urine pH 6.0 Bedside Urine Protein ++ 100 Bedside Urine Urobilinogen - Negative Bedside Urine Nitrite - Negative Bedside Urine Leukocytes - Negative Esterase MDM Narrative Medical decision making narrative: Pt presents with AMS/acute delirium. EKG to evaluate for evidence of arrhythmia, Labwork to evaluate for evidence of electrolyte abnormality such as hyponatremia/hypernatremia/hypokalemia/hyperkalemia/hypoglycemia/hyperglycemia/drug drug poisoning/ETOH poisoning, etc. CT brain to evaluate for evidence of head injury/intracranial bleed or mass. Chest x-ray to evaluate for evidence of pneumonia. Monitor, observe. Patient with no reversible cause of AMS found, will be admitted for further evaluation and monitoring Discharge Plan Departure Patient Disposition: Admitted As Inpatient Clinical Impression: Acute delirium Admit Date/Time: 05/16/25 12:37 Admit Provider: Rcik Macias
== END 2025-05-17 16:03 | disposition home or self-care (01) ==
LOC: ED 11:22 → AC 12:49
PROVIDERS: Admitting Provider Family Medicine; Emergency Provider Emergency Medicine; PCP Family Medicine; Referring Provider Emergency Medicine; Visit Provider Family Medicine
DX: G93.40 Encephalopathy, unspecified (principal); H54.40 Blindness, one eye, unspecified eye; I10 Essential (primary) hypertension; E78.5 Hyperlipidemia, unspecified; R73.03 Prediabetes; N40.1 Benign prostatic hyperplasia with lower urinary tract symptoms; N39.498 Other specified urinary incontinence; W18.30XA Fall on same level, unspecified, initial encounter; Z91.81 History of falling; Z80.42 Family history of malignant neoplasm of prostate; Z87.891 Personal history of nicotine dependence; Z98.890 Other specified postprocedural states; Z66 Do not resuscitate
CPT/HCPCS: 36415; 70450; 70551; 71045; 72170; 80053; 80305; 80320; 81003; 81015; 82140; 82607; 82746; 82962; 83036; 83605; 83690; 83735; 83930; 84443; 85025; 85610; 85730; 86850; 86900; 86901; 93005; 97116; 97162; 99222; 99238; 99283; 99284; G0378; J7030